=== PATIENT | male | born 1945 | race Caucasian/White ===

== ENCOUNTER → 2020-03-15 09:11 | Outpatient (BNVA) | payer MEDICARE, SELFPAY | PROVIDERS: PCP Student in an Organized Health Care Education/Training Program; Visit Provider Specialist | DX: G25.0 Essential tremor (principal); M51.9 Unspecified thoracic, thoracolumbar and lumbosacral intervertebral disc disorder; R25.1 Tremor, unspecified | CPT/HCPCS: 36415; 82607; 82746; 83921; 99204 ==

== ENCOUNTER 2020-03-15 11:04 | Outpatient (CLI) | payer MEDICARE, SELFPAY ==
[2020-03-15 12:42] LABS: Vitamin B12 1488 pg/mL (232-1245)
[2020-03-15 14:19] LABS: Folate Level > 20.0 ng/mL (4.5-32.2)
[2020-03-20 05:05] LABS: Methylmalonic Acid 200 nmol/L (87-318)
== END 2020-03-15 11:05 | disposition home or self-care (01) ==
LOC: LAB 11:09
PROVIDERS: PCP Student in an Organized Health Care Education/Training Program; Visit Provider Specialist
DX: R25.1 Tremor, unspecified (principal)
CPT/HCPCS: 36415; 82607; 82746; 83921

== ENCOUNTER 2020-11-15 08:15 | Outpatient (CLI) | payer MEDICARE, SELFPAY ==
--- NOTE | 2020-11-15 08:00 | USCV_ITS ---
Gabino Piña Age: 75 Gender: M : 1945 Exam Date: 11/15/2020 08:28 Ordering Phys: Nelly Garzon MD ([email or web address]) Technologist: Kristen Webb [place] [facility] [place]: SOB AND NEAR SYNCOPE BP: 151 / 99 HR: 60 Rhythm: Atrial fibrillation Technical Quality: Adequate MEASUREMENTS (Male / Female) Normal Values 2D ECHO LV Diastolic Diameter PLAX 3.6 cm 4.2 - 5.9 / 3.9 - 5.3 cm LV Systolic Diameter PLAX 2.1 cm LV Chamber Size 3.3 cm IVS Diastolic Thickness 1.5 cm 0.6 - 1.0 / 0.6 - 0.9 cm IVS Systolic Thickness 1.4 cm LVPW Diastolic Thickness 1.5 cm 0.6 - 1.0 / 0.6 - 0.9 cm LVPW Systolic Thickness 1.4 cm RV Chamber Size 3.8 cm LVOT Diameter 2.2 cm LV Ejection Fraction 2D Teich 75.2 % LV Ejection Fraction MOD 2C 50.1 % LV Ejection Fraction 2C AL 51.0 % LA Diameter 3.1 cm LA Width 3.6 cm LA Height 5.1 cm RA Width 3.7 cm RA Height 4.6 cm Aorta at Sinotubular Diameter 3.8 cm DOPPLER AV Peak Velocity 140.0 cm/s LVOT Peak Velocity 124.0 cm/s AV Area Cont Eq vti 3.7 cm squared AV Area Cont Eq pk 3.4 cm squared MV Area PHT 3.8 cm squared Mitral E to A Ratio 1.9 MV E' Velocity 87.4 cm/s Mitral E to MV E' Ratio 13.9 Mitral E to LV E' Lateral Ratio 12.9 Mitral E to LV E' Septal Ratio 14.9 TR Peak Velocity 122.4 cm/s TR Peak Gradient 6.0 mmHg TR Mean Velocity 75.3 cm/s TR Mean Gradient 2.5 mmHg TR Velocity Time Integral 26.4 cm TV Peak E Velocity 52.0 cm/s PV Peak Velocity 37.0 cm/s RV Acceleration Time 0.1 s RV Ejection Time 0.3 s RV AcT/ET 0.3 FINDINGS Left Ventricle Normal left ventricular cavity size. Normal left ventricular systolic function. No regional wall motion abnormalities. Grade III/IV diastolic dysfunction (restrictive filling pattern), severely elevated filling pressures. Right Ventricle The right ventricle is normal in size and function. RVSP could not be calculated due to incomplete tricuspid regurgitation velocity profile. Right Atrium The right atrium is normal in size. Left Atrium The left atrium is normal in size. Mitral Valve Moderately thickened mitral valve. No mitral valve stenosis. Moderate mitral valve regurgitation. Aortic Valve Severe aortic valve calcification. Aortic valve not well visualized. Tricuspid Valve Structurally normal tricuspid valve without significant stenosis or regurgitation. Pulmonary artery systolic pressure is normal. Pulmonic Valve Structurally normal pulmonic valve without significant stenosis. There is no pulmonic regurgitation. Pericardium Normal pericardium without effusion. Aorta Normal ascending aorta dimension. CONCLUSIONS 1-Normal left ventricular cavity size. Normal left ventricular systolic function. No regional wall motion abnormalities. Grade III/IV diastolic dysfunction (restrictive filling pattern), severely elevated filling pressures. 2-The right ventricle is normal in size and function. RVSP could not be calculated due to incomplete tricuspid regurgitation velocity profile. 3-Moderately thickened mitral valve. No mitral valve stenosis. Moderate mitral valve regurgitation. 4-Severe aortic valve calcification. Aortic valve not well visualized. 5-There is no pericardial effusion. 6-Right atrial pressure is around 5 mm of mercury. 7-There are no prior echocardiogram studies to compare. eNlly Garzon MD (Electronically Signed) Final Date: 15 November 2020 17:54 S
== END 2020-11-15 08:16 | disposition home or self-care (01) ==
LOC: RAD 08:20
PROVIDERS: PCP Student in an Organized Health Care Education/Training Program; Visit Provider Internal Medicine Cardiovascular Disease
DX: R06.02 Shortness of breath (principal); R55 Syncope and collapse; I08.0 Rheumatic disorders of both mitral and aortic valves
CPT/HCPCS: 93306

== ENCOUNTER 2020-11-23 07:54 | Outpatient (CLI) | payer MEDICARE, SELFPAY ==
[2020-11-23 08:06] VITALS: BMI 37.0
--- NOTE | 2020-11-23 08:21 | ECG_ITS ---
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 The perfusion scan will be documented separately. DATA: Baseline heart rate was 65 beats per minute. Baseline blood pressure was 186/108 millimeters of mercury. Target heart rate was 143. Maximum heart rate achieved was 85. which was 59 % of the predicted target heart rate. Maximum blood pressure was 186/108 millimeters of mercury. The reason for ending the test was completion of the protocol. The patient did not experience any symptoms. ELECTROCARDIOGRAM: BASELINE: Sinus rhythm. Normal axis. Otherwise, no ST-T changes suggestive of ischemia noted. No arrhythmia noted. EXERCISE: After Lexiscan injection, no ST-T changes suggestive of ischemic noted. No arrhythmia noted. CONCLUSION: Please note due to baseline abnormality of the EKG specificity and sensitivity of the EKG portion of LexiScan MIBI stress test will be low 1. EKG not suggestive of ischemia 2. Lexiscan injection unremarkable. 3. Perfusion scan will be documented separately. Electronically Signed On 11-25-2020 21:57:49 PRESIDENT by NELLY GARZON [id number]
--- NOTE | 2020-11-23 08:21 | NMCV_ITS ---
NM larissa perf SPECT r/s* [id number] Gabino Piña Age: 75 Gender: M : 1945 Exam Date: 11/23/2020 09:24 Ordering Phys: Nelly Garzon MD ([email or web address]) Technologist: NEY Slaughter Exam Location: [facility] Indications: CHEST PAIN STRESS TEST Please see separate stress test report in [facility] for full findings IMAGE PROTOCOL Rest/Stress 1 Lexiscan Day Radiopharmaceutical Dose (mCi) Administration Site Administered by Rest: Tc-99m 10.5 IV NEY Slaughter Sestamibi Stress:Tc-99m 32.9 IV NEY Shankar Sestamibi Rest: 23-Nov-2020 60 Discovery 630 Stress: 23-Nov-2020 30 Discovery 630 0.4mg Lexiscan. Images obtained in supine and prone position. SPECT RESULTS Technical Quality: Excellent Raw Data Analysis: Normal Image Corrections: No attenuation or motion correction applied Summed Stress Score: 0 Summed Rest Score: 4 Summed Difference Score: 0 PERFUSION FINDINGS Large area of patchy decreased tracer uptake in basal to distal anterior and basal to distal inferior wall noted on rest images which improved significantly over stress images images suggestive of artifact. FUNCTIONAL RESULTS (calculated via Gated SPECT) Stress Image LV EF (%): 62 Stress EDV (mL):142 TID: 1.21 Stress ESV (mL):54 Rest Image LV EF (%): 62 FUNCTIONAL FINDINGS: There is normal left ventricular systolic function. IMPRESSIONS Nuclear scan is not suggestive of ischemia.TID ratio is moderately elevated which could be secondary to left ventricle hypertrophy/subendocardial ischemia in the absence of other parameters, however cannot rule out multivessel coronary artery disease clinical correlation advised. Nelly Garzon MD (Electronically Signed) Final Date: 23 November 2020 19:09 S
[2020-11-23 10:06] VITALS: BP 146/88; PULSE 60
[2020-11-23] MEDS: regadenoson 0.4 Mg/5 ml Syringe IVP (10:06)
== END 2020-11-23 07:55 | disposition home or self-care (01) ==
PROVIDERS: PCP Student in an Organized Health Care Education/Training Program; Visit Provider Internal Medicine Cardiovascular Disease
DX: R07.9 Chest pain, unspecified (principal)
CPT/HCPCS: 78452; 93017; A9500; J2785

== ENCOUNTER 2020-12-09 05:33 | Day surgery (SDC) | payer MEDICARE, SELFPAY ==
[2020-12-09] VITALS (15 sets, daily range): BP systolic 96–174; BP diastolic 55–108; PULSE 60–65; RESP 10–21; TEMP 36.8; O2SAT 93–100; BMI 39.2
--- NOTE | 2020-12-09 06:16 | XACV_ITS ---
Ht: 175 cm Wt: 121 kg BSA: 2.48 m2 Gender: Male : 1945 Any Known Allergies: Other Exam Priority: Routine Procedure(s): Procedure Description: Diagnostic procedure Procedure Description: Left Heart Catheterization Procedure Description: Left ventriculography Procedure Description: Coronary Angiography Diagnostic Cath Status: Elective Diagnostic Findings * No significant disease noted in the Left Main, LAD, Circumflex, or RCA coronary arteries. * Coronary angiography shows left dominance. Conclusions 1. Indication for left heart cath: Worsening of angina despite of optimization of medicine in a patient with prior multiple stents1-Short left main which is normal2-LAD is moderate size and caliber vessel with patent prior mid to distal stents3-Diagonal 1 and 2 are small caliber vessels with no significant stenosis4-LCx is aneurysmal in its proximal course without significant stenosis in mid to distal segment, obtuse marginal 1 and 2 has luminal irregularity without significant stenosis. It is a dominant vessel5-RCA is nondominant small caliber vessel without significant stenosis.LV gram: Normal left ventricle ejection fraction 65%. No wall motion abnormality. 2. No significant disease noted in the Left Main, LAD, Circumflex, or RCA coronary arteries. 3. Hyperdynamic left ventricular systolic function. Ejection fraction of 70%. Recommendations * 1-Return to inpatient for close monitoring and routine cath care2-Risk factor modification for secondary prevention3-Statin and aspirin 81 mg life--long, if tolerated4-Continue optimal medical management5-Follow up with Dr. Garzon in four weeks and your primary care in 10 days. Diagnostic RX Recommendation: medical therapy and/or counseling Ventriculography Ejection Fraction: 70.0 % Pressures Phase:Rest AO : 151 / 105 ( 127 ) @ 1:46:00 AM 128 / 82 ( 104 ) @ 1:49:00 AM 122 / 69 ( 94 ) @ 2:02:00 AM 124 / 71 ( 95 ) @ 2:02:00 AM LV : 127 / 8 / @ 2:00:00 AM 132 / 5 / @ 2:01:00 AM 130 / 3 / @ 2:02:00 AM 129 / 6 / @ 2:02:00 AM Valves Phase:DefaultPhase AV : 6.0 @ 8:14:39 AM AV Mean Gradient: 8.0 @ 8:14:39 AM Clinical Evaluation EBL: 5mL-10mL Procedural Details Procedure Consent Obtained. Pre-Procedure Time Out. Identified patient by full name and date of as verbalized by the patient/guarantor. Does the consent match the physician's order: Yes. Accurate & Complete Informed Consent: Yes. Inpatient/Outpatient History & Physical on Chart: Yes. If H&P is completed, is and addenduem needed: No; If yes, is the addendum complete: N/A. Visualize and Verify Site with Patient/Guarantor: N/A. Relevant Radiology Images available: N/A. Pre-op teaching completed and patient verbalized understanding. The risks, benefits, and alternatives of sedation and/or procedure were discussed by physician. The patient agrees to continue. Procedure started. [facility] Clinical Fraility Score: 4: Vulnerable. 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 Chest Pain Symptom Assessment: Typical Angina Symptoms. Cardiovascular Instability: No. Correct patient, site and procedure confirmed by cath team. PERRLA. 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 Lungs clear x 5 lobes. IV Site on Arrival: 20 gauge in the left wrist. IV Fluids: 0.9% NaCl at KVO. 0 mL infused prior to photo lab specialist. Pre Procedural Pulses: bilateral radial was 3+. Pre Procedural Pulses: bilateral posterior tibial was Doppled. Pre Procedural Pulses: bilateral dorsalis pedis was 3+. Oxygen started at 2liters/min via nasal canula. Baseline sample Acquired. HR: 63 BPM. bilateral groins was prepped with chloroprep then draped in the usual sterile fashion. right radial was prepped with chloroprep then draped in the usual sterile fashion. Equipment: 6F - Radial. Cardiac Cath Pack. ACIST Manifold Kit Model BT 2000. Heparinized Saline (2 units/mL), 1000 mL bag. Physician notified. Physician arrived. Physician scrubbed in. Immediate Pre-Procedure Time Out. Correct Patient: Yes; Correct Procedure: Yes; Correct Site: Yes; Correct Patient Position: Yes; Correct Supplies: Yes; Dried Flammable Prep: Yes; Blood Products Available: N/A;. Lidocaine 1% infiltrated to the right radial. Arterial access obtained. A 5 ugandan TIG catheter in over wire. Catheter redirected to the RCA. Multiple views taken of left coronary artery. Multiple views taken of right coronary artery. Catheter removed over the exchange wire. A 5 ugandan Angled Pig catheter in over wire. EDP Sample taken: LV 127/8,16; HR: 92 BPM; SpO2: 95%. LV gram performed in [place] @ 10 mL/second for a total of 30 mL. EDP Sample taken: LV 132/5,23; HR: 60 BPM; SpO2: 90%. EDP Sample taken: LV 130/3,24; HR: 60 BPM; SpO2: 96%. Pullback taken: LV 129/6,22; AO 122/69(94); Mean: 8mmHg, Peak to Peak: 6mmHg, SEP: 20sec/min; HR: 60 BPM; SpO2: 97%. Catheter removed over the exchange wire. Physician scrubbed out. A TR Band was successful obtaining hemostatsis at the Right Radial artery insertion site. TR band placed. Hemostasis obtained. Post Procedure: Pulses reassessed and unchanged. PERRLA. 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 No VTE prophylaxis required. Medication's Wasted: Lidocaine 1% = 18 mL. Medication's Wasted: Nitro = 49.8 mg. Medication's Wasted: Heparin = 1000 units. Medication's Wasted: Other = versed 1 mg. Total IV fluids: 61.2 mL. Contrast type used: Omnipaque 300 mg/mL, 150 mL bottle. Complications: none. Estimated blood loss: 5mL-10mL. Post-op diagnosis: patent stents, no significant stenosis, small vessel disease. Procedure completed. Patient transferred by stretcher to CPRU. Vital chart was stopped. Access Site Site: Right Radial artery Sheath Size: 6 Fr Hemostasis Method: TR Band Hemostasis Success: Successful Procedure Medications Start: 7:29 AM Stop: 7:29 AM Medication: Versed Amount: 1 mg Route: I.V. Start: 7:29 AM Stop: 7:29 AM Medication: Fentanyl Amount: 50 mcg Route: I.V. Start: 7:36 AM Stop: 7:36 AM Medication: Versed Amount: 1 mg Route: I.V. Start: 7:36 AM Stop: 7:36 AM Medication: Fentanyl Amount: 50 mcg Route: I.V. Start: 7:42 AM Stop: 7:42 AM Medication: Nitrogylcerin Amount: 200 mcg Route: I.A. Start: 7:44 AM Stop: 7:44 AM Medication: Heparin Amount: 5000 units Route: I.V. Start: 7:53 AM Stop: 7:53 AM Medication: Versed Amount: 1 mg Route: I.V. I, the attending physician, have reviewed and verified all procedure medications. Yes, all medications given per verbal order History/Risk Factors Hypertension: Yes Dyslipidemia: No Peripheral Arterial Disease (PAD): No Myocardial Infarction (VT): No Obesity: Yes Renal Disease: No Prior Interventions PCI: No CABG: No Valve Surgery: No Report Signatures Finalized by Nelly Garzon MD on 12/21/2020 08:25 PM
[2020-12-09] MEDS: diphenhydrAMINE 50 mg Capsule PO (06:46)
--- NOTE | 2020-12-09 07:28 | W.PM.OPSUD ---
Surgery/Procedure H&P Update DATE OF PROCEDURE: December 09, 2020 DATE H&P PERFORMED: 11/30/20 H&P UPDATE INFORMATION: I have reviewed H&P completed within last 30 days, I have examined patient prior to procedure and No changes to prior documentation PREOP DIAGNOSIS: Angina, abnormal stress test in the patient with CABG PLANNED PROCEDURE: Operation Date: 12/09/20 07:00 Proposed Procedures p left Cardiac Catheterization 22763 R94.39(Left) - Nelly Garzon MD PATIENT REASSESSED PRIOR TO SEDATION, WITH NO CHANGE NOTED: Yes PHYSICAL EXAM: alert, oriented x 3 and clear to auscultation bilaterally AIRWAY EVAL/ANESTHESIA PLAN: ASA II, Risks, benefits & alternatives of sedation and/or procedure discussed and Patient agrees to continue as planned
--- NOTE | 2020-12-09 08:30 | PC.NURSE ---
recovery note pt received from laboratory phlebotomist post diagnostic [facility] via hospital bed. pt alert and oriented x3. pt complains of no pain. tr band present on right wrist. no bleeding or bruising noted. pt educated on restrictions on right wrist. pt verbalized understanding. pt placed on vitals monitor and will be monitored per protocol. bed low, call light within reach. called dietary for breakfast tray. planned to dc within 3 hrs as long as all goes to plan.
--- NOTE | 2020-12-09 11:26 | PC.NURSE ---
tr band tr band off with little difficulty. slight oozing slowed the removal. tr band off now and bandage lightly wrapped with coban. pt again educatedon restrictions of right arm. verbalized understanding. stated he has done this before and remembers from last time. very pleasant patient.
== END 2020-12-09 12:20 | disposition home or self-care (01) ==
PROVIDERS: Internal Medicine; PCP Student in an Organized Health Care Education/Training Program; Visit Provider Internal Medicine Cardiovascular Disease
DX: I20.0 Unstable angina (principal); R94.39 Abnormal result of other cardiovascular function study; E78.5 Hyperlipidemia, unspecified; Z95.0 Presence of cardiac pacemaker; M19.90 Unspecified osteoarthritis, unspecified site; I48.0 Paroxysmal atrial fibrillation; Z87.891 Personal history of nicotine dependence
CPT/HCPCS: 36415; 93452; C1769; C1887; C1894; J1644; J2250; J3010; J3490; J7030; Q0163; Q9967

== ENCOUNTER → 2020-12-16 10:30 | Outpatient (BNVA) | payer MEDICARE, SELFPAY | PROVIDERS: PCP Student in an Organized Health Care Education/Training Program; Visit Provider Nurse Practitioner Family | DX: I25.10 Atherosclerotic heart disease of native coronary artery without angina pectoris (principal); I10 Essential (primary) hypertension | CPT/HCPCS: 80048 ==

== ENCOUNTER → 2021-01-05 14:19 | Outpatient (BNVA) | payer MEDICARE, SELFPAY | PROVIDERS: PCP Student in an Organized Health Care Education/Training Program; Visit Provider Internal Medicine Cardiovascular Disease | DX: I10 Essential (primary) hypertension (principal); I77.72 Dissection of iliac artery | CPT/HCPCS: 80048 ==

== ENCOUNTER 2021-01-06 09:54 | Outpatient (CLI) | payer MEDICARE, SELFPAY ==
[2021-01-06] MEDS: iohexol 350 mg/mL 100 mL Btl IV (10:50)
--- NOTE | 2021-01-06 11:00 | CT_ITS ---
WS: [id number] CTA ABDOMINAL AORTA WITH RUNOFF TECHNIQUE: Contrast enhanced CTA of the abdominal aorta with bilateral lower extremity runoff. Multip lanar reformatted images were obtained. MIP reformats were also reviewed. 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 DLP: 2266.[address] scans at [facility] use at least one of these dose optimization techniques: automat ed exposure control; mA and/or kV adjustment per patient size (includes targeted exams where dose is matched to clinical indication); or iterative reconstruction. FINDINGS: Normal caliber abdominal aorta. Mild aortic calcification. Celiac and SMA are patent. Proxi mal renal arteries are patent. Normal renal parenchymal enhancement. NAMAN is patent. Lung bases are well aerated. Prior gastric bypass. Prior cholecystectomy. Adrenal glands are normal. No hydronephrosis in either kidney. Normal renal parenchymal enhancement. Small left renal cortical c yst. Slightly enlarged calcified prostate. No evidence of high-grade small or large bowel obstruction. Nor mal appendix. No abdominal lymphadenopathy. No inguinal lymphadenopathy. Moderate spondylitic changes lumbar spine with severe central canal stenosis due to disc osteophyte c omplexes at L2-L5. Prior laminectomies L5-S1. RIGHT: Right common iliac artery is patent with mild calcification. Dissection of the right common il iac artery with dissection flap extending into the external iliac artery. Dissection flap extends to the distal external iliac artery. Normal opacification of both lumens. No significant stenosis. Internal iliac artery is patent. Common femoral artery is patent.. Deep femoral artery is patent. Sup erficial femoral artery is patent to the popliteal hiatus. Normal popliteal artery. Images degraded i n the popliteal fossa due to right TKA. Popliteal artery is patent to the trifurcation with normal th ree-vessel runoff to the ankle. LEFT: Left common iliac artery is patent. Internal iliac artery is patent. Left external iliac artery is patent. Common femoral artery is patent. Deep femoral artery is patent. Superficial femoral arter y is patent to the popliteal hiatus. Normal popliteal artery patent to the trifurcation. Three-vessel runoff to the ankle. CT/CT angio abd aorta runof 07123 IMPRESSION: 1. Normal caliber abdominal aorta. Celiac and SMA are patent. 2. 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 No significant flow-limiting stenosis in the common joby ac or external iliac artery. 3. No flow-limiting stenosis in either lower extremity. 4. Three-vessel runoff to both ankles. 5. Images in the right popliteal fossa are degraded due to right TKA. 6. Nonvascular findings described above
== END 2021-01-06 09:55 | disposition home or self-care (01) ==
LOC: RAD 09:57
PROVIDERS: PCP Student in an Organized Health Care Education/Training Program; Visit Provider Internal Medicine Cardiovascular Disease
DX: I77.72 Dissection of iliac artery (principal)
CPT/HCPCS: 75635

== ENCOUNTER → 2021-06-22 11:55 | Outpatient (BNVA) | payer MEDICARE, SELFPAY | PROVIDERS: PCP Student in an Organized Health Care Education/Training Program; Referring Provider Student in an Organized Health Care Education/Training Program; Visit Provider Specialist | DX: M25.562 Pain in left knee (principal) | CPT/HCPCS: 73502; 73560; 73565 ==

== ENCOUNTER 2021-07-27 13:48 | Outpatient (CLI) | payer MEDICARE, SELFPAY ==
--- NOTE | 2021-07-27 15:00 | USCV_ITS ---
Gabino Piña Age: 76 Gender: M : 1945 Exam Date: 07/27/2021 14:29 Ordering Phys: Amber Reynolds Technologist: Yohana Reyes Exam Location: [facility] Indication: HTN, DIZZINESS Risk Factors: Previous Vascular Surgery: Right Brachial BP: / Left Brachial BP: / Right Left Velocity (cm/s) Spectral Plaque Velocity (cm/s) Spectral Plaque Syst/Diast Broadening Syst/Diast Broadening 50.50/ 10.90 Prox CCA 68.00 / 12.80 54.90/ 13.60 Mid CCA 57.50 / 12.40 48.90/ 14.00 Distal CCA 50.50 / 13.20 36.80/ 11.60 Prox ICA 37.80 / 7.80 28.90/ 8.60 Mid ICA 55.60 / 17.80 41.90/ 19.40 Distal ICA 48.50 / 19.30 69.10 ECA 70.60 0.76 ICA/CCA 0.82 Antegrade Vertebral Antegrade 35.00/ 12.40 cm/s 42.80/ 14.30 cm/s Tri Subclavian Tri 77.70 108.3 0 FINDINGS Comparison: none available. No significant elevation of systolic or diastolic velocities. Waveforms are normal. Minimal bilateral, atherosclerosis with no elevation of velocity. CONCLUSIONS Bilateral ICA stenosis less than 50%. Dr. Sofia Santos DO (Electronically Signed) Final Date: 27 July 2021 15:09 S
== END 2021-07-27 13:49 | disposition home or self-care (01) ==
LOC: RAD 13:51
PROVIDERS: PCP Student in an Organized Health Care Education/Training Program; Visit Provider Nurse Practitioner Family
DX: I10 Essential (primary) hypertension (principal); R42 Dizziness and giddiness; I65.23 Occlusion and stenosis of bilateral carotid arteries
CPT/HCPCS: 93880

== ENCOUNTER 2021-11-07 10:23 | Observation (INO) | payer MEDICARE, SELFPAY ==
--- NOTE | 2021-11-01 10:06 | ECG_ITS ---
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 Measurements Intervals [place] Rate: 60 P: 254 DE: 257 QRS: 32 QRSD: 98 T: 38 QT: 407 QTc: 407 Interpretive Statements ELECTRONIC ATRIAL PACEMAKER LOW QRS VOLTAGE IN PRECORDIAL LEADS [QRS DEFLECTION < 1.0 mV IN CHEST LEADS] ANTEROSEPTAL MYOCARDIAL INFARCTION , OF INDETERMINATE AGE [40+ ms Q WAVE IN V1-V4] No previous ECG available for comparison Electronically Signed On 11-02-2021 22:03:14 COUNTER FORMER by Shelley Love M.D. [id number]
[2021-11-01 10:24] VITALS: BMI 34.7
--- NOTE | 2021-11-06 13:30 | PM.MISC ---
Miscellaneous Note Note: Received call from Dr. Tovar that patient was supposed to have pre-op on 11/01, but d/t an emergency physician wasn't available. Subsequently on 11/03 patient received a phone call where a lady asked him if he'd ever gotten his heart monitor. The patient had no idea where the phone call originated from and did not have any fore-knowledge of the possibility or need of a heart monitor, so the phone caller said let me check on it. He hasn't received any other phone calls regarding the issue. on 11/06, He has called Dr. Veronica's office, [facility] (where he sometimes visits the ER, but has never seen a drapery head former), and his primary care doctor and none know of any heart monitor. The patient has had extensive work-up with Dr. Veronica in the recent past and has a pacemaker for paroxysmal a fib. It's possible the phone call was about setting up a follow-up pacemaker interrogation which is schedule for 11/24. Patient gives no account of recent palpitations, syncope, or abnormal chest pains. Patient denies seeing any other drapery head former, primary care doctor, or being admitted to any hospitals since july when he last saw dr. veronica.
[2021-11-07] VITALS (24 sets, daily range): BP systolic 121–186; BP diastolic 54–104; PULSE 58–78; RESP 15–24; TEMP 36.1–37.1; O2SAT 92–98
[2021-11-07 06:25] LABS: Glucose Point of Care 82 mg/dL (70-110)
[2021-11-07 06:29] LABS: Basophils % 0.6 %; Eosinophils # 0.1 10^3/uL (0.0-0.8); Eosinophils % 1.8 %; Hemoglobin 13.9 g/dL (11.7-16.6); Lymphocytes # 1.5 10^3/uL (0.8-4.8); Lymphocytes % 30.1 %; Mean Corpuscular HGB Conc 33.1 g/dL (30.0-36.0); Mean Corpuscular Hemoglobin 31.6 pg (28.0-34.0); Mean Corpuscular Volume 95.5 fl (80-94); Mean Platelet Volume 9.5 fL (7.4-10.4); Monocytes # 0.5 10^3/uL (0.2-0.9); Neutrophils # 2.81 10^3/uL (1.8-7.7); Neutrophils % 57.3 %; Nucleated Red Blood Cells % 0 %; Platelet Count 192 10^3/cmm (130-400); Red Cell Distribution Width 14.2 % (12.1-15.1); White Blood Count 4.9 10^3/uL (4.0-10.0)
[2021-11-07] MEDS: sodium chloride 0.9% 1,000 ML 30 ML IV (06:33)
[2021-11-07] MEDS: acetaminophen 1,000 MG/100 ML PIGGYBACK 400 MG IV ×3 (06:34→17:15)
[2021-11-07] MEDS: vancomycin 1,000 MG in sodium chloride 0.9% 250 ML 167 MG IV (06:50)
[2021-11-07 06:53] LABS: Alanine Aminotransferase 16 U/L (0-41); Albumin Level 4.2 g/dL (3.5-5.2); Alkaline Phosphatase 59 IU/L (40-130); Anion Gap 16.1 (5-19); Aspartate Amino Transferase 18 U/L (0-40); Blood Urea Nitrogen 16 mg/dL (8-23); Calcium 10.1 mg/dL (8.5-10.5); Carbon Dioxide 25 mmol/L (22-29); Chloride 102 mmol/L (98-107); Globulin 2.3 g/dL (1.3-4.6); Glucose 87 mg/dL (65-115); Osmolality Calculated 289 mOsm/kg (285-295); Potassium 4.1 mmol/L (3.5-5.1); Sodium 139 mmol/L (136-145); Total Bilirubin 0.9 mg/dL (0.15-1.2); Total Protein 6.5 g/dL (6.6-8.7)
--- NOTE | 2021-11-07 06:54 | W.PM.OPSUD ---
Surgery/Procedure H&P Update DATE OF PROCEDURE: November 07, 2021 DATE H&P PERFORMED: 11/06/21 H&P UPDATE INFORMATION: I have reviewed H&P completed within last 30 days, I have examined patient prior to procedure, No changes to prior documentation and H&P is in [facility] EMR on date indicated PREOP DIAGNOSIS: Left knee degenerative osteoarthritis PLANNED PROCEDURE: Operation Date: 11/07/21 07:00 Proposed Procedures p Total Knee Arthroplasty 62768 M17.10(Left) - Liliya Tovar MD Related Problem List Diagnoses (1) Primary osteoarthritis of left knee:
--- NOTE | 2021-11-07 06:57 | P.ANESASSM_ITS ---
Pre-Anesthetic Assessment Pre-Anesthetic Assessment: Height/Weight: Height 1.73 m Weight 103.419 kg Temp Pulse Resp BP Pulse Ox 98.1 F 60 18 170/104 95 11/07/21 06:03 11/07/21 06:03 11/07/21 06:03 11/07/21 06:03 11/07/21 06:03 Preop Diagnosis: Left knee degenerative osteoarthritis Proposed Procedure: Operation Date: 11/07/21 07:00 Proposed Procedures p Total Knee Arthroplasty 80465 M17.10(Left) - Liliya Tovar MD Familial anesthetic complications: None Was Beta Teodora taken within 24 hours: Yes Was Clonidine taken within 24 hours: N/A Last intake: Intake Last Liquid Date 11/06/21 Last Liquid Time 18:00 Last Solid Date 11/06/21 Last Solid Time 18:00 Social: Social History: No alcohol and No tobacco Exam: Pre-Anes Outpt Exam: alert, oriented x 3, clear to auscultation bilaterally and regular rate & rhythm Airway: Submandibular: WNL Cervical ROM: WNL MP: 1 Dentition: Full Pulmonary: Pulmonary: Sleep apnea Comments: METS > 4 CV/HEM: CV/HEM: Arrythmia, CAD, HTN, Murmur (MR) and PVD Comments: pAfib Being follow for right common iliac to right external iliac questionable dissection versus double vessel Carotid Doppler 07/18 CONCLUSIONS Bilateral ICA stenosis less than 50%. Fluorescent Lighting Model Maker Report 12/18 Conclusions 1. Indication for left heart cath: Worsening of angina despite of optimization of medicine in a patient with prior multiple stents1-Short left main which is normal2-LAD is moderate size and caliber vessel with patent prior mid to distal stents3-Diagonal 1 and 2 are small caliber vessels with no significant stenosis4-LCx is aneurysmal in its proximal course without significant stenosis in mid to distal segment, obtuse marginal 1 and 2 has luminal irregularity without significant stenosis. It is a dominant vessel5-RCA is nondominant small caliber vessel without significant stenosis.LV gram: Normal left ventricle ejection fraction 65%. No wall motion abnormality. 2. No significant disease noted in the Left Main, LAD, Circumflex, or RCA coronary arteries. 3. Hyperdynamic left ventricular systolic function. Ejection fraction of 70%. EKG Interpretive Statements ELECTRONIC ATRIAL PACEMAKER LOW QRS VOLTAGE IN PRECORDIAL LEADS [QRS DEFLECTION < 1.0 mV IN CHEST LEADS] ANTEROSEPTAL MYOCARDIAL INFARCTION , OF INDETERMINATE AGE [40+ ms Q WAVE IN V1-V4] No previous ECG available for comparison Electronically Signed On 11-02-2021 22:03:14 MOLDING PRESS OPERATOR by Shelley Love M.D. TTE Date of Service: 11/15/20 Procedure(s): CV echo complete* [id number] CONCLUSIONS 1-Normal left ventricular cavity size. Normal left ventricular systolic function. No regional wall motion abnormalities. Grade III/IV diastolic dysfunction (restrictive filling pattern), severely elevated filling pressures. 2-The right ventricle is normal in size and function. RVSP could not be calculated due to incomplete tricuspid regurgitation velocity profile. 3-Moderately thickened mitral valve. No mitral valve stenosis. Moderate mitral valve regurgitation. 4-Severe aortic valve calcification. Aortic valve not well visualized. 5-There is no pericardial effusion. 6-Right atrial pressure is around 5 mm of mercury. 7-There are no prior echocardiogram studies to compare. Nelly Garzon MD (Electronically Signed) : : None reported Hepatic: Hepatic: None reported GI: GI: GERD Metabolic: Metabolic: None reported Musc/skel: Musc/skel: None reported Neuropsych: Comments: RLS Tremor Anesthetic Plan: ASA status: 3 Anesthesia: Anesthesia Evaluation, General and Regional (specify below) (Spinal and adductor canal block) Other: Plan spinal with sedation and adductor canal block for PO pain control Risk of > 500 ml blood loss (7ml/kg in children): No Meds/Allergies Current Medications: Current Medications Generic Name Dose Route Start Last Admin Trade Name Freq PRN Reason Stop Dose Admin Sodium Chloride 1,000 mls @ 30 ml s/hr 11/07/21 05:45 11/07/21 06:33 Sodium Chloride 0.9% IV 11/08/21 05:44 30 mls/hr .Q24H SAMIA Administration PFSH Anesthesia PFSH: Medical History Anemia Coronary arteriosclerosis Dissection of artery of lower extremity Essential hypertension Gastroesophageal reflux Headache History of nonmelanoma skin cancer History of pacemaker Hyperlipidemia Mitral valve regurgitation Obstructive sleep apnea Osteoarthritis Paroxysmal atrial fibrillation Restless leg syndrome Tremor Uncontrolled hypertension Surgical History History of cardiac radiofrequency ablation History of right knee surgery S/P cardiac pacemaker procedure S/P total knee replacement Right knee Family History Other Cancer Chronic kidney disease (CKD) Heart disease Social History History of recent travel: No Data Anesthesia CBC & Chem 7: 11/07/21 06:20 11/07/21 06:20 Other Labs: Laboratory Results - last 48 hr 11/07/21 11/07/21 11/07/21 06:20 06:20 06:22 WBC 4.9 RBC 4.40 Hgb 13.9 Hct 42.0 MCV 95.5 H MCH 31.6 MCHC 33.1 RDW 14.2 Plt Count 192 MPV 9.5 Neut % (Auto) 57.3 Lymph % (Auto) 30.1 [place] % (Auto) 10.0 Eos % (Auto) 1.8 Baso % (Auto) 0.6 Neut # (Auto) 2.81 Lymph # (Auto) 1.5 [place] # (Auto) 0.5 Eos # (Auto) 0.1 Baso # (Auto) 0.0 Nucleated RBC % (auto) 0 Nucleated RBCs # 0.0 Sodium 139 Potassium 4.1 Chloride 102 Carbon Dioxide 25 Anion Gap 16.1 BUN 16 Creatinine 0.8 GFR Calculation Not Reportable Glucose 87 POC Glucose 82 Calculated Osmolality 289 Calcium 10.1 Total Bilirubin 0.9 AST 18 ALT 16 Alkaline Phosphatase 59 Total Protein 6.5 L Albumin 4.2 Globulin 2.3 Cardiac Studies: Echocardiogram Ultrasound 11/15/20 Sestamibi Stress Test (Cardiology) 11/23/20
[2021-11-07 07:45] LABS: Add Urine Microscopic? NO; Charge for UA Resulting for Rev
[2021-11-07 07:53] LABS: Bilirubin Urine Neg (Negative); Blood Urine Neg (Negative); Glucose Urine UA Norm (Normal); Ketones Urine Negative (Negative); Leukocyte Esterase Urine Negative (Negative); Nitrate Urine Negative (Negative); Protein Urine Neg (Negative); Urine Appearance Clear (CLEAR); Urine Color Yellow (Yellow); Urobilinogen Urine Norm (Negative); pH Urine 6.5 (5-7)
[2021-11-07] MEDS: vancomycin 1,000 MG SDV 1000 MG XX (08:00)
[2021-11-07] MEDS: ceFAZolin 1,000 mg SDV 2000 MG IRRIGATION (08:01)
--- NOTE | 2021-11-07 09:40 | P.OP_ITS ---
Operative Report Date of procedure: November 07, 2021 Pre-op Diagnosis: Left knee degenerative osteoarthritis Post-op diagnosis: same Post-op Findings: Large osteophytes, varus deformity, significant degenerative osteoarthritic change Procedure Done: Left total knee arthroplasty Implants: The [place] total knee system with a size 5 triathlon beaded posterior stabilized femur left, a triathlon titanium tibial component size 5 beaded, a triathlon X3 posterior stabilized tibial bearing insert size 5 X 11 mm and a beaded triathlon titanium asymmetric patella size 32 x 10 mm Specimens removed/disposition: Bone, disposed of Pathology: none sent Surgeon: Liliya Tovar Hemstitcher: [facility] operating [facility] technicians Estimated blood loss (mL): 25 Tourniquet time (min): 105 Tourniquet time: At 300 mmHg IV fluids (mL): 1,000 Urine output (mL): 250 Complications: None Findings: Significant degenerative osteoarthritic changes with varus deformity and medial tightness Condition: stable Disposition: PACU (Then to floor for postoperative rehabilitation, medical management, and pain management) Brief History: This 76-year-old gentleman presented to my office with complaints of severe left knee pain causing him significant limitations in activities of daily living. The patient was unresponsive to conservative measures. After extended discussion regarding his cardiac issues as well as the severity of his symptoms, the decision was made to proceed with left total knee arthroplasty. Patient has previously successfully undergone right total knee arthroplasty and has done well following this. It was approximately 3 years ago and was done in [facility]. He is having enough issues with his function and pain level, he wishes to proceed with total knee arthroplasty. Preoperatively, questions were answered and consents were signed. The patient will be admitted to the hospital postoperatively under observation status for postoperative rehabilitation. Medical consultation will be obtained. Procedure: The patient was brought to the operating theater, and after undergoing adequate spinal anesthesia with MAC, and with supplemental regional block placed while in the recovery room, ASA 3, the left lower extremity was prepped with Dura-Prep and draped in usual fashion following placement of a tourniquet high on the leg. The leg was then draped free. Following prepping and draping, the leg was exsanguinated, and the tourniquet was elevated to 300 mm Hg for a total tourniquet time of 105 minutes. Prior to elevation of the tourniquet, but following exposure of the site of surgery, a surgical pause was performed. At the time of the surgical pause, we confirmed the site and side of surgery. Additionally, we confirmed the appropriate and timely administration of preoperative antibiotics, vancomycin 1 g and Transexemic acid 1 g. The availability of equipment was confirmed, and the patient's identity was verbalized as well. Following the surgical pause, an incision was made centering over the patella continuing proximally and distally as necessary to allow access to the knee joint. Dissection continued through skin and soft tissues using a scalpel. Hemostasis was obtained using electrocautery. The skin incision was followed by a median parapatellar arthrotomy. The leg was extended and the patella was everted. Following this, the leg was returned to flexed position. The distal femur was exposed and a drill hole was made in this for placement of the distal femoral jig. The distal femoral jig was set at 5? of valgus. The distal femoral cutting block was then placed in appropriate position, and an willi wing was used to confirm an appropriate amount of distal femur would be resected. The distal femoral resection was accomplished with 8 mm of bone being resected distally. After the distal femoral resection had been accomplished, the femur was measured and it measured a size 5 in an anterior posterior direction is in a medial lateral direction. A size 5 femoral cutting block was placed in position, and we were then able to accomplish the anterior, posterior and chamfer cuts. This jig was then removed, and the notch guide was placed in position. With the notch guide in appropriate position, the notch was excised including resection of the anterior and posterior cruciate ligaments. This notch was to allow for the posterior stabilized femoral component. At this point, the femur was prepared and attention was directed to the proximal tibia. The posterior knee retractor was placed along with medial and lateral retractors. Further resection of the menisci was accomplished as we had better visualization. A complete meniscectomy was performed both medially and laterally with care being taken to protect the popliteus. Retractors were then placed so that the proximal tibia was well visualized. A drill hole was then made in the tibia for placement of the intramedullary guide. This guide was placed so that approximately 2 mm of bone would be resected from the medial tibial plateau, and this resulted in 4+ mm resected from the lateral tibial plateau. The intramedullary guide was utilized supplemented with an extramedullary guide to assure appropriate alignment for the proximal tibial resection. The proximal tibial jig was then evaluated, pinned in position, and the proximal tibial resection was accomplished without difficulty. The jig was removed, and the proximal tibia was measured. It measured a size 5. We then attempted a trial reduction with a size 5 by 9 mm insert. To better balance the knee, a slight medial release was accomplished, and trial reduction was accomplished with an 11 mm insert. With this, the femoral component was placed in position for the trial reduction, and the knee was placed through range of motion. There was excellent stability with excellent varus-valgus alignment with appropriate patellar tracking. Extension was noted to be full as well. This was felt to be the appropriate size insert. There was full extension and flexion without lift off and the rotation of the tibia was marked. Alignment was checked from the hip to the ankle, and this was noted to be appropriate as well. Attention was then directed to the patella. The patella was measured with a caliper. We resected sufficient patella to leave approximately 15 mm of patella remaining. Measurements of the patella then indicated that a size asymmetric 32 mm x 10 mm was the appropriate patellar size. We then placed the jig to drill for the 3 pegs of the press-fit patella, and these drill holes were made without incident. A trial patella was then placed, and the knee was placed through range of motion. The patella was noted to track nicely without evidence of subluxation. The femur was prepared for a press-fit femur by drilling 2 holes for the femoral pegs. All trial components were subsequently removed. The tibial tray was then pinned into position, and we broached the tibia for the stem of the tibial component. Subsequently, 4 drill holes were made for placement of the press-fit tibia. This was accomplished without difficulty. Care was taken to assure appropriate rotation of the tibia as well as appropriate position on the proximal tibia. The tibial tray was completely seated on the proximal tibia. Following broaching, the tibial guide was removed, and all surfaces were copiously irrigated. The surfaces were then dried and a bone plug was placed into the distal femur. Exparel was also injected at this point. The Tritanium tibia was impacted into position. The beaded femur was then impacted into position in a cementless fashion. The tibial insert was placed. The patella was pressed into position with a patellar clamp. The knee was irrigated with 20 mL of Betadine and 500 mL of normal saline, and this was allowed to remain in the knee for 3-4 minutes. The knee was then copiously irrigated and suctioned dry. The knee was placed through aggressive range of motion, and with flexion beyond approximately 110 degrees, there was a click with return to full extension. This was addressed with a partial bony resection along the lateral femoral condyle. Following this resection, there was no more clicking with aggressive range of motion. At that time attention was then directed to closure. Closure was accomplished with 0 Vicryl in the fascial tissues. Following this, a 2-0 Monocryl was used in the subcutaneous tissues, and the skin was closed with skin kirk. A sterile dressing was then placed consisting of dermabond Prineo, OpSite, ABD, sterile soft roll, and an Yonny wrap. The patient was returned the Recovery Room in a satisfactory condition. The supplemental regional block was placed while in the recovery room. X-rays were obtained there. The patient will be discharged to the floor for postoperative rehabilitation and pain management as medical consultation. Associated Problem List Diagnoses (1) Primary osteoarthritis of left knee: (2) Obesity, Class I, BMI 30-34.9:
--- NOTE | 2021-11-07 09:51 | P.CONIM_ITS ---
Providers/Reason For Consult Consulting Physician/Specialty*: Erik Clemente, hospitalist Reason for Consult*: Medical management Attending Physician: Liliya Tovar MD Primary Care Provider: Ari Piña History of Present Illness History of Present Illness Gabino Piña is a 76 year old male who underwent a left total knee arthroplasty today. I have been asked to manage him from a medical standpoint secondary to his complicated medical issues, and heart issues. Currently he reports he is doing okay. He states he had a spinal block so really cannot feel much below his waist. No difficulty breathing. States he occasionally has chest discomfort, and this has been a chronic problem. He states an angiogram was done forward in November 2020 demonstrating no flow-limiting lesions. He has a known history of cardiomyopathy with preserved EF, 3/4 diastolic dysfunction, an d moderate mitral regurgitation demonstrated by echo in October 2020. 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 Review of Systems General: Reports: 10 or more systems reviewed and unremarkable except in HPI and below Const: Denies: fever(s) or chills Eyes: Denies: change in vision ENMT: Denies: throat pain Card: Reports: chest pain Resp: Denies: dyspnea GI: Denies: abdominal pain : Denies: flank pain Musc: Reports: extremity pain; Denies: neck pain Skin/Breast: Denies: rash Neuro: Denies: headache(s) Psych: Denies: anxiety Endo: Denies: polyuria Paul/Lymph: Denies: easy bruising All/Imm: Denies: urticaria Meds/Allergies Home Medications and Allergies Home Medications Medication Instructions Recorded Confirmed Last Taken Type coenzyme Q10 200 mg/gram oral 300 mg PO DAILY gm 03/15/20 11/06/21 12/08/20 05:00 History powder pramipexole 0.25 mg tablet 0.25 mg PO TID 03/15/20 11/07/21 11/07/21 History tamsulosin 0.4 mg capsule 0.4 mg PO DAILY 03/15/20 11/07/21 11/05/21 History acetaminophen 325 mg capsule 500 mg PO QID PRN 11/30/20 11/06/21 12/08/20 05:00 History prednisolone acetate 1 % eye 2 drp OPHTHALMIC (EYE) DAILY ml 11/30/20 11/07/21 11/07/21 History drops,suspension metformin 500 mg PO BID 12/08/20 11/07/21 11/06/21 History trazodone 50 mg tablet 100 mg PO Q4-5H tab 05/03/21 11/07/21 11/06/21 History carvedilol 12.5 mg tablet 12.5 mg PO BID #180 tab 11/02/21 11/07/21 11/07/21 03:30 Rx furosemide 20 mg tablet 20 mg PO DAILY PRN #90 tab 11/02/21 11/07/21 Unknown Rx isosorbide mononitrate 20 mg tablet 30 mg PO BID #135 tab 11/02/21 11/07/21 11/06/21 Rx nitroglycerin 0.4 mg sublingual 0.4 mg SUBLINGUAL Q5M PRN #25 tab 11/02/21 11/07/21 Unknown Rx tablet ranolazine 500 mg tablet,extended 1,000 mg PO QAM #180 tab 11/02/21 11/07/21 11/06/21 Rx release,12 hr ranolazine 500 mg tablet,extended 500 mg PO BEDTIME #90 tab 11/02/21 11/07/21 11/06/21 Rx release,12 hr rivaroxaban 20 mg tablet 20 mg PO DAILY #90 tab 11/02/21 11/07/21 11/01/21 Rx rosuvastatin 40 mg sprinkle capsule 40 mg PO DAILY #90 cap 11/02/21 11/07/21 11/06/21 Rx valsartan 160 mg tablet 240 mg PO DIRECTED #135 tab 11/02/21 11/07/21 11/07/21 Rx Walker #1 ea NS 11/03/21 11/06/21 Unknown Rx amlodipine 5 mg PO DAILY 11/07/21 11/07/21 11/07/21 History tramadol 50 mg PO DAILY 11/07/21 11/07/21 11/06/21 History Allergies Allergy/AdvReac Type Severity Reaction Status Date / Time aspirin Allergy bleeding Verified 11/01/21 10:08 NSAIDS (Non-Steroidal Allergy bleeding Verified 11/01/21 10:08 Anti-Inflamma Current Medications Current Medications Generic Name Dose Route Start Last Admin Trade Name Freq PRN Reason Stop Dose Admin Sodium Chloride 1,000 mls @ 30 mls/hr 11/07/21 05:45 11/07/21 06:33 Sodium Chloride 0.9% IV 11/08/21 05:44 30 mls/hr .Q24H SAMIA Administration PFSH Acute PFSH: Medical History Anemia Coronary arteriosclerosis Dissection of artery of lower extremity Essential hypertension Gastroesophageal reflux Headache History of nonmelanoma skin cancer History of pacemaker Hyperlipidemia Mitral valve regurgitation Obstructive sleep apnea Osteoarthritis Paroxysmal atrial fibrillation Restless leg syndrome Tremor Uncontrolled hypertension Surgical History History of cardiac radiofrequency ablation History of right knee surgery S/P cardiac pacemaker procedure S/P total knee replacement Right knee Family History Other Cancer Chronic kidney disease (CKD) Heart disease Social History History of recent travel: No Vitals/I&O/Wt Last Vital Signs Temp 98.1 F 11/07/21 06:03 Pulse 60 11/07/21 06:03 Resp 18 11/07/21 06:03 BP 170/104 11/07/21 06:03 Pulse Ox 95 11/07/21 06:03 11/06/21 11/07/21 11/07/21 22:59 06:59 14:59 Intake Total 100 / 100 360 / 360 Balance 100 / 100 360 / 360 Physical Exam Narrative: EXAM NARRATIVE: General exam is a white male, currently in no dist ress HEENT: Atraumatic normocephalic. Oropharynx clear. Neck is supple no lymphadenopathy or thyromegaly Cardiovascular regular rate and rhythm, 2/6 systolic murmur Lungs clear Abdomen is soft, positive bowel sounds Extremities no cyanosis clubbing or edema, cap refill brisk Skin no rash Neurologic: Currently cannot move lower extremities secondary to spinal Urinary Catheter Management^: Coffman: Cath Placed During This Visit: yes Urinary Catheter Date of Insertion: 11/07/21 Urinary Catheter Time of Insertion: 07:25 Data Other Data: Other data: COVID PCR - November 01 A&P Assessment and plan (1) Primary osteoarthritis of left knee: Directly postoperative left total knee arthroplasty. Currently doing well. Status: Acute (2) Coronary arteriosclerosis: History of stenting in the past. Reports he has some chest discomfort on a chronic basis, for which he is on medication for. At this point no change in medications Note that his last angiogram 1 year ago demonstrated no flow-limiting lesions Status: Acute (3) Paroxysmal atrial fibrillation: Patient reports he has had no recurrence of his atrial fibrillation, since ablation and pacemaker placement He continues to take Xarelto, which will be continued postoperatively Status: Acute (4) Uncontrolled hypertension: Continue home medications Status: Acute Additional A&P Information Presumed hyperglycemia. He is on metformin. Sugar is normal here. We will put on consistent carb diet, and hold metformin in case any studies with radiological dye are needed while inpatient. Thank you for this consultation Consult Attestations Medical Necessity Statement: As per primary Time Spent in Patient Care: Greater than 35 minutes Coding Level of Care Code Acute Continuous Improvement Analyst for Regla Jaquez Diagnoses Primary osteoarthritis of left knee M17.12 Coronary arteriosclerosis I25.10 Paroxysmal atrial fibrillation I48.0 Uncontrolled hypertension I10
--- NOTE | 2021-11-07 09:54 | XR_ITS ---
NOTE: Report was unsigned for reason: Order was edited. Original Signature date and time was: 11/07/21 @ 1024 WS: [id number] XR knee LT REASON FOR EXAM: Status post total knee arthroplasty FINDINGS: Total left knee arthroplasty. The prosthetic complements are in proper position and alignment. There is mild nonweightbearing hyperextension at the left knee joint. Old healed fracture with bowing deformity of the proximal left fibula. [facility] XR/XR knee LT 1-2V [id number] IMPRESSION: Total left knee arthroplasty without abnormality.
--- NOTE | 2021-11-07 10:25 | PC.NURSE ---
First ice placed on patients left knee for post op care.
--- NOTE | 2021-11-07 11:37 | ANES.PROC ---
Anesthesia Procedures Procedure/Date: 11/07/21 Nerve Block ^: Nerve Block 1: Main Anesthesia: spinal anesthesia block Time Out Performed: Yes (1010) Consent: requested by attending/covering physician and from patient Nerve block location: adductor canal Anesthesia monitors applied: pulse oximetry, EKG, BP cuff and oxygen Nerve block position: supine Anesthetic Used: bupivacaine 0.5% Amount of anesthesia used (mL): 20 Ultrasound used to: recognize landmarks and visualize and ID femerol nerve Nerve Stimulator Used?: No Interscalene/Femoral BLK: 4 stimuplex 21 g needle used for position and inplane approach, visualize local anesthetic spread and no vascular puncture identified Injection: neg aspiration of heme and paresthesia +/- Patient Tolerated Procedure: well Complications: none
--- NOTE | 2021-11-07 11:38 | ANE.PACU2 ---
Inpatient post-anesthesia follow up: Airway intact: Yes Vital signs: Temperature 97.0 F Pulse Rate 60 Respiratory Rate 20 Blood Pressure 152/86 Pulse Oximetry 96 Oxygen Delivery Me thod Room Air Oxygen Flow Rate Fraction of Inspir ed Oxygen Hydration adequate: Yes Nausea and vomiting: No Pain level: 1 Mental status: Baseline
[2021-11-07] MEDS: pramipexole 0.25 mg Tablet PO ×2 (14:13→20:09)
[2021-11-07] MEDS: oxyCODONE 5 mg IR Tab/Cap PO ×2 (15:48→20:09)
[2021-11-07] MEDS: LORazepam 2 mg/mL INJ 1 mL 0.5 MG IVP (15:48)
[2021-11-07] MEDS: chlorhexidine gluconate 0.12% Btl 473 mL 30 ML MUCOUS MEM ×2 (17:14→20:08)
[2021-11-07] MEDS: calcium carbonate 500 mg Chew Tablet 1000 MG PO (17:15)
[2021-11-07] MEDS: isosorbide mononitrate 20 mg Tablet 30 MG PO (17:15)
[2021-11-07] MEDS: sennosides-docusate Tablet 2 TAB PO (17:15)
[2021-11-07] MEDS: iron polysaccharide complex 150 mg Capsule PO (17:15)
[2021-11-07] MEDS: losartan 50 mg Tablet 25 MG PO (17:16)
[2021-11-07] MEDS: carvedilol 12.5 mg Tablet PO (17:16)
[2021-11-07] MEDS: ranolazine (12HR) 500 mg Tablet PO (20:08)
[2021-11-08] VITALS (7 sets, daily range): BP systolic 124–154; BP diastolic 69–85; PULSE 60–86; RESP 17–18; TEMP 36.4–36.9; O2SAT 92–97
[2021-11-08] MEDS: acetaminophen 1,000 MG/100 ML PIGGYBACK 400 MG IV (02:26)
[2021-11-08] MEDS: ranolazine (12HR) 500 mg Tablet 1000 MG PO (05:28)
[2021-11-08] MEDS: oxyCODONE 5 mg IR Tab/Cap PO (06:29)
--- NOTE | 2021-11-08 07:22 | PM.PN ---
Documented by User: GIORGI Barragan STDMANDY 11/08/21 07:26 Subjective Subjective: Interval history: Gabino has no specific complaints today. Denies SOB or chest pain. Vitals/I&O/Wt Last Vital Signs Temp 97.5 F L 11/08/21 04:00 Pulse 86 11/08/21 04:00 Resp 18 11/08/21 06:29 BP 149/83 11/08/21 04:00 Pulse Ox 97 11/08/21 04:00 11/07/21 11/08/21 11/08/21 22:59 06:59 14:59 Intake Total 580 / 1040 100 / 1140 Output Total 1300 / 3625 450 / 4075 Balance -720 / -2585 -350 / -2935 Physical Exam Narrative: EXAM NARRATIVE: General: in no acute distress, breathing comfortably on room air HEENT: atraumatic, normocephalic, oropharynx clear Neck: supple, no lympadenopathy or thyromegaly Cardiovascular: RRR w/o murmur Lungs: clear to auscultation bilaterally, no wheezes Abdomen: soft, nontender Extremities: left knee wrapped in clean and dry dressing Skin: no rash Neuro: no focal deficits Urinary Catheter Management^: Coffman: Cath Placed During This Visit: yes, but has since been removed by the nurse Reason for Continuing Indwelling Catheter: Required Immobilization for Trauma or Surgery or Anesthesia Urinary Catheter Date of Insertion: 11/07/21 Urinary Catheter Time of Insertion: 07:25 Date Urinary Catheter Removed: 11/08/21 Time Urinary Catheter Discontinued: 05:45 Data : 11/07/21 06:20 11/07/21 06:20 Coding Level of Care Code Acute 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 I interviewed patient as well. He is hoping he can go home today. Medications: Reviewed: Yes Physical Exam Narrative: EXAM NARRATIVE: No changes to the above. I examined the patient as well. Urinary Catheter Management^: Coffman: Cath Placed During This Visit: no Data : 11/07/21 06:20 11/07/21 06:20 A&P Assessment and plan (1) Primary osteoarthritis of left knee: Postoperative day #1, doing well Status: Acute (2) Coronary arteriosclerosis: Asymptomatic currently. Continue current medications Does have history of some chronic chest pain for which she is on Ranexa. Status: Acute (3) Paroxysmal atrial fibrillation: Currently appears to be in sinus rhythm. No changes are needed. He will continue his Xarelto. Status: Acute (4) Uncontrolled hypertension: Blood pressure slightly high, but acceptable currently. Status: Acute Additional A&P Information Presumed hyperglycemia. He is on metformin. Sugar continues to be normal. We will put on consistent carb diet, and hold metformin in case any studies with radiological dye are needed while inpatient. Medically stable at this time. Attestations Medical Necessity Statement*: As per primary Coding Level of Care Code Acute School Bus Driver/Custodian for Regla Jaquez Diagnoses Primary osteoarthritis of left knee M17.12 Coronary arteriosclerosis I25.10 Paroxysmal atrial fibrillation I48.0 Uncontrolled hypertension I10
[2021-11-08] MEDS: calcium carbonate 500 mg Chew Tablet 1000 MG PO (09:05)
[2021-11-08] MEDS: isosorbide mononitrate 20 mg Tablet 30 MG PO (09:05)
[2021-11-08] MEDS: pramipexole 0.25 mg Tablet PO (09:05)
[2021-11-08] MEDS: cholecalciferol (vitamin D3) 1,000 unit Tablet 1000 UNIT PO (09:05)
[2021-11-08] MEDS: losartan 50 mg Tablet PO (09:05)
[2021-11-08] MEDS: atorvastatin 40 mg Tablet 80 MG PO (09:06)
[2021-11-08] MEDS: carvedilol 12.5 mg Tablet PO (09:06)
[2021-11-08] MEDS: rivaroxaban 10 mg Tablet 20 MG PO (09:06)
[2021-11-08] MEDS: tamsulosin 0.4 mg Capsule PO (09:06)
[2021-11-08] MEDS: multivitamin therapeutic Tablet 1 TAB PO (09:06)
[2021-11-08] MEDS: amlodipine 5 mg Tablet PO (09:06)
[2021-11-08] MEDS: sennosides-docusate Tablet 2 TAB PO (09:06)
[2021-11-08] MEDS: iron polysaccharide complex 150 mg Capsule PO (09:06)
[2021-11-08] MEDS: chlorhexidine gluconate 0.12% Btl 473 mL 30 ML MUCOUS MEM (09:14)
[2021-11-08] MEDS: acetaminophen 500 mg Tablet 1000 MG PO (09:14)
[2021-11-08] MEDS: mupirocin oint 22 gm 1 APPLIC NASAL (09:14)
--- NOTE | 2021-11-08 11:09 | PC.CHAP ---
Pastoral Care Encounter/Spiritual Assessment Type of Contact [] Declined magazine filler visit [] Patient/Family/Request visit [] Outpatient visit [] Follow-up visit [] Physician referral [] Code/Alert [x] Routine visit [] Staff referral [] Actively dying [] Patient sleeping [] Family support [] [] Out of room [] Palliative care [] [] Receiving care in room [] Pre-surgical visit [] Trauma [] Long length of stay [] ICU visit [] Other: Relational/Emotional Strength [x] Patient feels connected with others/family/visitors/staff [] Distress [] Loneliness/isolation [] Abandonment Spirituality of Patient [x] Person of Inna [x] Attends Zoroastrianism of their Inna [x] Believes in Prayer [x] Reads Bible or Voodoo materials [] There are Spiritual issues to be addressed Machine Tool Mechanic Interventions [x] Prayer [x] Active listening [x] Non-anxious presence [x] Spiritual/emotional support [] Crisis/trauma care [] Spiritual counseling [] Bereavement support [] Provided bereavement packet [] Provided Bible/devotional materials [] Provided toy/stuffed animal, coloring book to patient or family member [] Provided Communion [] Anointing/Petros [] Salvation [x] Completed spiritual assessment [] Other: Impact on Illness or Injury [] Angry [] Fearful [] Anxious [] Often cries [] Exhaustion [] Unable to work [] Unable to attend church [] Unable to walk/stand [] Unable to read [] Unable to drive [] Unable to eat/drink [] Unable to sleep [] Unable to be with family [] Patient intubated [] Other: Summary Time spent with patient 15 min
[2021-11-08 11:23] LABS: Basophils % 0.3 %; Eosinophils % 0.5 %; Hematocrit 37.8 % (42.0-52.0); Hemoglobin 12.5 g/dL (11.7-16.6); Lymphocytes # 1.3 10^3/uL (0.8-4.8); Lymphocytes % 16.4 %; Mean Corpuscular HGB Conc 33.1 g/dL (30.0-36.0); Mean Corpuscular Hemoglobin 31.8 pg (28.0-34.0); Mean Corpuscular Volume 96.2 fl (80-94); Mean Platelet Volume 9.3 fL (7.4-10.4); Monocytes # 1.1 10^3/uL (0.2-0.9); Monocytes % 13.8 %; Neutrophils # 5.41 10^3/uL (1.8-7.7); Neutrophils % 68.6 %; Nucleated Red Blood Cells % 0 %; Platelet Count 163 10^3/cmm (130-400); Red Blood Count 3.93 10^6/uL (4.1-5.3); Red Cell Distribution Width 14.5 % (12.1-15.1); White Blood Count 7.9 10^3/uL (4.0-10.0)
[2021-11-08 11:43] LABS: Anion Gap 13.8 (5-19); Blood Urea Nitrogen 19 mg/dL (8-23); Calcium 8.5 mg/dL (8.5-10.5); Carbon Dioxide 24 mmol/L (22-29); Chloride 102 mmol/L (98-107); Glucose 102 mg/dL (65-115); Osmolality Calculated 284 mOsm/kg (285-295); Potassium 3.8 mmol/L (3.5-5.1); Sodium 136 mmol/L (136-145)
[2021-11-08 12:30] LABS: Glucose Point of Care 92 mg/dL (70-110)
--- NOTE | 2021-11-08 13:21 | P.DS_ITS ---
Discharge Providers Date of Admission: 11/07/21 10:23 Date of Discharge: November 08, 2021 Attending Provider at Admission: Liliya Tovar MD Attending Provider at Discharge: Liliya Tovar MD Primary Care Provider: Ari Piña Diagnoses at Discharge Discharge Diagnosis (1) Primary osteoarthritis of left knee: Status: Acute (2) Coronary arteriosclerosis: Status: Acute (3) Paroxysmal atrial fibrillation: Status: Acute (4) Uncontrolled hypertension: Status: Acute (5) Status post total left knee replacement not using cement: Status: Acute Permanent problem details: 11/07/21 Implants: The Spring total knee system with a size 5 triathlon beaded posterior stabilized femur left, a triathlon titanium tibial component size 5 beaded, a triathlon X3 posterior stabilized tibial bearing insert size 5 X 11 mm and a beaded triathlon titanium asymmetric patella size 32 x 10 mm Reason for Visit Reason for Visit: Left knee osteoarthritis Hospital Course Hospital Course This 76-year-old gentleman was admitted for same-day surgery for left total knee arthroplasty. This was accomplished and the patient was admitted to the floor postoperatively for postoperative rehabilitation and pain management. Given the patient's multiple medical comorbidities, upon admission to the floor, the patient was evaluated by the hospitalist team. He did well following his left total knee arthroplasty and his postoperative course was uneventful. He worked with physical therapy and they felt that he was safe for discharge to home. Nursing agreed and he has been independent in transfers. Therefore, he'll be discharged home to follow-up with me as previously scheduled. Physical Exam Const: COMMON NORMALS: no acute distress, average body habitus, patient oriented x3 and alert GENERAL APPEARANCE: cooperative and comfortable ORIENTATION/CONSCIOUSNESS: Yes awake HENMT: COMMON NORMALS: normocephalic and atraumatic HEAD & SCALP: normocephalic and atraumatic Eye: GENERAL EYE: appearance normal, both eyes and all related structures Chest: COMMONS NORMALS: normal inspection of the chest Resp: COMMON NORMALS: normal respiratory effort EFFORT & INSPECTION: Yes able to speak in complete sentences and Yes symmetric chest movement Extremity: LEFT LOWER EXTREMITY: Yes knee joint (Dressing is removed, and wound is benign.) Left knee: Yes inspection (No significant swelling. Minimal ecchymosis.), Yes palpation (Minimal discomfort.), Yes ROM (Not evaluated.) and Yes neurovascular exam (Intact distal to surgical site with no evidence of DVT) Neuro: COMMON NORMALS: patient oriented x3 SENSORIUM/ORIENTATION: Yes alert Psych: COMMON NORMALS: mental status grossly normal APPEARANCE: Yes grossly normal ATTITUDE: Yes calm and Yes engaged ATTENTION/CONCENTRATION: Yes attention grossly intact Skin: COMMON NORMALS: no rashes or lesions noted GENERAL SKIN EXAM: no rashes or lesions noted Urinary Catheter Management^: Coffman: Cath Placed During This Visit: yes, but has since been removed by the nurse Reason for Continuing Indwelling Catheter: Required Immobilization for Trauma or Surgery or Anesthesia Urinary Catheter Date of Insertion: 11/07/21 Urinary Catheter Time of Insertion: 07:25 Date Urinary Catheter Removed: 11/08/21 Time Urinary Catheter Discontinued: 05:45 Discharge Data Data Completed and Pending: Completed Studies During Hospitalization Category Date Time Status XR knee LT 1-2V 7 3560 Urgent Exams 11/07/21 09:54 Completed Labs from last 24 hours 11/08/21 11/08/21 11/07/21 11:09 11:09 15:39 WBC 7.9 RBC 3.93 L Hgb 12.5 Hct 37.8 L MCV 96.2 H MCH 31.8 MCHC 33.1 RDW 14.5 Plt Count 163 MPV 9.3 Neut % (Auto) 68.6 Lymph % (Auto) 16.4 Sullivan % (Auto) 13.8 Eos % (Auto) 0.5 Baso % (Auto) 0.3 Neut # (Auto) 5.41 Lymph # (Auto) 1.3 Sullivan # (Auto) 1.1 H Eos # (Auto) 0.0 Baso # (Auto) 0.0 Nucleated RBC % (a uto) 0 Nucleated RBCs # 0.0 Sodium 136 Potassium 3.8 Chloride 102 Carbon Dioxide 24 Anion Gap 13.8 BUN 19 Creatinine 0.8 GFR Calculation Not Reportable Glucose 102 POC Glucose 92 Calculated Osmolal ity 284 L Calcium 8.5 Vitals: Last Vital Signs Temp 98.5 F 11/08/21 12:00 Pulse 60 11/08/21 12:00 Resp 18 11/08/21 12:00 BP 124/69 11/08/21 12:00 Pulse Ox 94 11/08/21 12:00 Discharge Plan Discharge Patient Disposition: Home Health Service Condition: Stable Prescriptions: New acetaminophen 500 mg Tablet 1,000 mg PO Q8H 15 Days Qty: 90 RF: 0 oxycodone 5 mg Tablet 5 mg PO Q4H PRN (Reason: Moderate Pain) 7 Days Qty: 30 RF: 0 Continued tamsulosin 0.4 mg capsule 0.4 mg PO DAILY RF: 0 pramipexole 0.25 mg tablet 0.25 mg PO TID RF: 0 H2Q CoQ10 200 mg/gram powder 300 mg PO DAILY RF: 0 trazodone 50 mg tablet 100 mg PO Q4-5H RF: 0 (DME) Walker See Rx Instructions .Route .MEDSUPPLY Qty: 1 RF: 0 prednisolone acetate 1 % drops,suspension 2 drp ophthalmic (eye) DAILY RF: 0 carvedilol 12.5 mg tablet 12.5 mg PO BID Qty: 180 RF: 3 furosemide 20 mg tablet 20 mg PO DAILY PRN (Reason: Weight Gain) Qty: 90 RF: 3 isosorbide mononitrate 20 mg tablet 30 mg PO BID Qty: 135 RF: 3 nitroglycerin 0.4 mg tablet, sublingual 0.4 mg sublingual Q5M PRN (Reason: chest pain) Qty: 25 RF: 3 ranolazine 500 mg tablet extended release 12 hr 1,000 mg PO QAM Qty: 180 RF: 3 ranolazine 500 mg tablet extended release 12 hr 500 mg PO BEDTIME Qty: 90 RF: 3 Xarelto 20 mg tablet 20 mg PO DAILY Qty: 90 RF: 3 rosuvastatin 40 mg capsule, sprinkle 40 mg PO DAILY Qty: 90 RF: 4 valsartan 160 mg tablet 240 mg PO DIRECTED Qty: 135 RF: 3 amlodipine 5 mg Tablet 5 mg PO DAILY RF: 0 tramadol 50 mg Tablet 50 mg PO DAILY RF: 0 metformin 500 mg tablet 500 mg PO BID RF: 0 Discontinued acetaminophen 325 mg capsule 500 mg PO QID PRN (Reason: Pain) RF: 0 Discharge Orders: Discharge Order (Routine); Ordered 11/08/21 Ordered By: Liliya Tovar Referrals: Liliya Tovar MD [Physician] - 11/20/21 8:45 am Discharge Diet: Advance as tolerated and Usual diet Discharge Activity: Increase activity as tolerated, Limit activity as instructed, Use walker/crutches as instructed and As per PT/OT instructions Patient Instructions: Acetaminophen (By mouth), Oxycodone, Slow Release (By mouth), Surgical Site Infections (DC), Knee Replacement (DC), Opioid Safety Activity Restrictions/Additional Instructions: Ice and elevation to left lower extremity. Weightbearing as tolerated. Gait training, strengthening, and ambulation per physical therapy instruction. Discharge Attestations Time Spent in Discharge Care*: greater than 30 min Specific Discharge Activities: educating patient, educating and/or supporting family/caregiver, documenting/other paperwork and evaluating patient/reviewing data Status at Discharge: Cognitive status at discharge: mildly impaired cognition (Unchanged from preoperative) , Behavioral status at discharge: cooperative , Functional status at discharge: independent ambulation Overall status at discharge: patient has a new baseline Quality Metrics Clinical Quality Measures During this hospital stay, did patient experience: None Coding Level of Care Code Acute Chg FW DC note Exam Comprehensive Diagnoses Primary osteoarthritis of left knee M17.12 Coronary arteriosclerosis I25.10 Paroxysmal atrial fibrillation I48.0 Uncontrolled hypertension I10 Status post total left knee replacement not using cement Z96.652
--- NOTE | 2021-11-08 15:56 | PC.NURSE ---
patient verbalized understanding of discharge instructions, home medications, and follow up appointments. patient received his ice packs and was wheeled to the main entrance.
== END 2021-11-08 14:55 | disposition home health service (06) ==
LOC: MEDSURG 10:23
PROVIDERS: Admitting Provider Specialist; PCP Student in an Organized Health Care Education/Training Program; Visit Provider Specialist
PROC: (CPT 27447; principal; 2021-11-07 07:00)
DX: M17.12 Unilateral primary osteoarthritis, left knee (principal); I25.10 Atherosclerotic heart disease of native coronary artery without angina pectoris; I48.0 Paroxysmal atrial fibrillation; I10 Essential (primary) hypertension; Z95.0 Presence of cardiac pacemaker; E78.5 Hyperlipidemia, unspecified; G47.33 Obstructive sleep apnea (adult) (pediatric); E66.9 Obesity, unspecified; Z68.34 Body mass index [BMI] 34.0-34.9, adult
CPT/HCPCS: 27447; 12345; 36415; 36416; 51702; 64447; 73560; 73562; 76942; 80048; 80053; 81003; 82962; 85025; 87635; 93005; 96365; 97110; 97116; 97162; C1776; C9290; G0378; J0360; J0690; J2060; J2250; J2704; J3370; J3490; J7030

== ENCOUNTER → 2021-11-20 09:03 | Outpatient (BNVA) | payer MEDICARE, SELFPAY | PROVIDERS: PCP Student in an Organized Health Care Education/Training Program; Visit Provider Specialist | DX: Z96.652 Presence of left artificial knee joint (principal); Z96.651 Presence of right artificial knee joint | CPT/HCPCS: 73560; 73565 ==

== ENCOUNTER → 2021-12-27 08:30 | Outpatient (BNVA) | payer MEDICARE, SELFPAY | PROVIDERS: PCP Student in an Organized Health Care Education/Training Program; Visit Provider Nurse Practitioner Family | DX: I48.0 Paroxysmal atrial fibrillation (principal); Z95.0 Presence of cardiac pacemaker; I25.10 Atherosclerotic heart disease of native coronary artery without angina pectoris; I10 Essential (primary) hypertension | CPT/HCPCS: 99214 ==

== ENCOUNTER → 2022-01-01 10:12 | Outpatient (BNVA) | payer MEDICARE, SELFPAY | PROVIDERS: PCP Student in an Organized Health Care Education/Training Program; Visit Provider Specialist | DX: Z96.652 Presence of left artificial knee joint (principal) | CPT/HCPCS: 73560; 73565 ==

== ENCOUNTER → 2022-02-28 14:17 | Outpatient (BNVA) | payer MEDICARE, SELFPAY | PROVIDERS: PCP Student in an Organized Health Care Education/Training Program; Visit Provider Nurse Practitioner Family | DX: I48.0 Paroxysmal atrial fibrillation (principal); I10 Essential (primary) hypertension; Z87.891 Personal history of nicotine dependence | CPT/HCPCS: 99214 ==

== ENCOUNTER 2022-03-07 11:00 | Outpatient (CLI) | payer MEDICARE, SELFPAY ==
[2022-03-07 12:12] LABS: Blood Urea Nitrogen 25 mg/dL (8-23); Calcium 9.7 mg/dL (8.5-10.5); Carbon Dioxide 32 mmol/L (22-29); Chloride 95 mmol/L (98-107); Glucose 96 mg/dL (65-115); Osmolality Calculated 284 mOsm/kg (285-295); Sodium 135 mmol/L (136-145)
== END 2022-03-07 11:01 | disposition home or self-care (01) ==
LOC: LAB 11:09
PROVIDERS: PCP Student in an Organized Health Care Education/Training Program; Visit Provider Nurse Practitioner Family
DX: I10 Essential (primary) hypertension (principal)
CPT/HCPCS: 80048

== ENCOUNTER 2022-03-11 10:26 | Emergency (ER) | payer MEDICARE, SELFPAY ==
[2022-03-11 10:33] VITALS: BP 144/91; PULSE 60; RESP 20; TEMP 36.4; O2SAT 96
--- NOTE | 2022-03-11 10:38 | CTR_ITS ---
PROCEDURE INFORMATION: Exam: CT Head Without Contrast Exam date and time: 03/11/2022 11:14 AM Age: 76 years old Clinical indication: Pain; Headache; Vascular; Additional info: NAIK TECHNIQUE: Imaging protocol: Computed tomography of the head without contrast. Radiation optimization: All CT scans at this facility use at least one of these dose optimization techniques: automated exposure control; mA and/or kV adjustment per patient size (includes targeted exams where dose is matched to clinical indication); or iterative reconstruction. COMPARISON: [place] [place] [id number] 08/06/2019 12:31 PM RADIATION DOSE METRICS: Total DLP (mGy-cm): 923.94 FINDINGS: Brain: No hemorrhage. Mild diffuse cerebral atrophy and moderate sequela of chronic small vessel ischemic disease. No mass effect. Cerebral ventricles: No ventriculomegaly. Paranasal sinuses: Visualized sinuses are unremarkable. No fluid levels. Mastoid air cells: Visualized mastoid air cells are well aerated. Bones/joints: Unremarkable. No acute fracture. Soft tissues: Unremarkable. CT/CT head wo con* [id number] IMPRESSION: 1. No acute intracranial abnormality. 2. Mild diffuse cerebral atrophy and moderate sequela of chronic small vessel ischemic disease.
--- NOTE | 2022-03-11 10:38 | XRR_ITS ---
PROCEDURE INFORMATION: Exam: XR Chest Exam date and time: 03/11/2022 11:05 AM Age: 76 years old Clinical indication: Pain; Chest pressure; Additional info: Cp TECHNIQUE: Imaging protocol: XR of the chest. Views: 1 view. COMPARISON: CT angio abd aorta runof [id number] 01/06/2021 11:03 AM FINDINGS: Tubes, catheters and devices: 2 lead pacer device noted in the left chest wall. Lungs: Unremarkable. No consolidation. Pleural spaces: Unremarkable. No pleural effusion. No pneumothorax. Heart/Mediastinum: Unremarkable. No cardiomegaly. Bones/joints: Unremarkable. XR/XR chest 1V portable [id number] IMPRESSION: No acute findings.
[2022-03-11 10:39] VITALS: BP 132/93; PULSE 60; RESP 18; TEMP 36.6; O2SAT 99
--- NOTE | 2022-03-11 10:39 | ECG_ITS ---
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 Measurements Intervals [place] Rate: 64 P: 147 NM: 287 QRS: 57 QRSD: 109 T: 45 QT: 406 QTc: 422 Interpretive Statements ELECTRONIC ATRIAL PACEMAKER SEPTAL MYOCARDIAL INFARCTION , PROBABLY OLD [40+ ms Q WAVE IN V1/V2] Compared to ECG 11/01/2021 10:43:19 No significant changes Electronically Signed On 03-11-2022 13:23:46 CDT by Shelley Love M.D. [id number]
--- NOTE | 2022-03-11 10:39 | W.ED.CHESTPA ---
HPI - Chest Pain General: Chief Complaint: Chest Pain Stated Complaint: CHEST PAIN Time Seen by Provider: 03/11/22 10:27 History of Present Illness: 76-year-old with history of CAD and small vessel coronary disease presents with chest pain. States that he has had it for months however over the last day it has gotten more severe. It is pressure-like and achy. Does not radiate. Denies any radiation to the back. States that he is on Xarelto and has been compliant with it. Denies any fevers or chills or nausea or vomiting. Denies lower extremity pain. Does report bilateral lower extremity swelling and he has been on Lasix for this with improvement in lower extremity swelling recently. Also reports mild headache. Denies any head trauma. States it was gradual to maximal intensity. Denies any focal numbness weakness or tingling. Review of Systems Narrative: - CONSTITUTIONAL: Denies weight loss, fever and chills. - HEENT: Denies changes in vision and hearing. - RESPIRATORY: Denies SOB and cough. - CV: As above - GI: Denies abdominal pain, nausea, vomiting and diarrhea. - : Denies dysuria and urinary frequency. - MSK: Denies myalgia and joint pain. - SKIN: Denies rash and pruritus. - NEUROLOGICAL: As above - PSYCHIATRIC: Denies suicidal ideation PFSH ED PFSH: Medical History Anemia Coronary arteriosclerosis Dissection of artery of lower extremity Essential hypertension Gastroesophageal reflux Headache History of nonmelanoma skin cancer History of pacemaker Hyperlipidemia Mitral valve regurgitation Obstructive sleep apnea Osteoarthritis Paroxysmal atrial fibrillation Restless leg syndrome Tremor Uncontrolled hypertension Surgical History History of cardiac radiofrequency ablation History of right knee surgery S/P cardiac pacemaker procedure S/P total knee replacement Right knee Family History Other Cancer Chronic kidney disease (CKD) Heart disease Social History Smoking and tobacco status: former smoker History of recent travel: No Physical Exam Narrative: EXAM NARRATIVE: - GENERAL: Alert and oriented x 3. No acute distress. Well-nourished. - EYES: EOMI. Anicteric. - HENT: Atraumatic, no C-spine tenderness. Moist mucous membranes. No scleral icterus. No cervical lymphadenopathy. - LUNGS: Clear to auscultation bilaterally. No accessory muscle use. Equal lung sounds bilaterally. No respiratory distress. - CARDIOVASCULAR: Regular rate and rhythm. No murmur. No JVD. - ABDOMEN: Soft, non-tender and non-distended. Negative CVA tenderness bilaterally, no rebound or guarding, negative Merida sign. No palpable masses. - EXTREMITIES: +1 lower extremity bilateral edema. Non-tender. - SKIN: No rashes or lesions. Warm. - NEUROLOGIC: No meningismus or focal neurological deficits. CN II-XII grossly intact. - PSYCHIATRIC: Cooperative. Appropriate mood and affect. Course Vital Signs: Vital signs: Vital Signs Temperature 97.8 F 03/11/22 10:39 Pulse Rate 60 03/11/22 10:39 Respiratory Rate 18 03/11/22 10:39 Blood Pressure 132/93 03/11/22 10:39 Pulse Oximetry 99 03/11/22 10:39 MDM - Chest Pain Medical Decision Making 76-year-old presents with chest pain. Also complains of headache. Nonfocal neurologic exam. There is no meningismus. He is hemodynamically stable afebrile and nontoxic-appearing. EKG and troponins do not reveal any sign of acute ischemia or other acute abnormality. D-dimer is negative. X-ray does not reveal pneumothorax or consolidation. CT scan of the head does not reveal any intracranial hemorrhage or other acute abnormality. Remainder of lab work unremarkable. At this time I believe patient would be safe for discharge and outpatient follow-up. Return precautions provided. Plan was reviewed with the patient who expressed understanding. Questions answered. Patient will follow up with PCP. Patient discharged in stable condition. Lab Data : 03/11/22 10:47 03/11/22 10:47 Radiology Impressions Chest X-Ray 03/11/22 10:38 IMPRESSION: No acute findings. Head CT 03/11/22 10:38 IMPRESSION: 1. No acute intracranial abnormality. 2. Mild diffuse cerebral atrophy and moderate sequela of chronic small vessel ischemic disease. Laboratory Results WBC 5.6 10^3/uL (4.0-10.0) 03/11/22 10:47 RBC 3.94 10^6/uL (4.1-5.3) L 03/11/22 10:47 Hgb 12.4 g/dL (11.7-16.6) 03/11/22 10:47 Hct 37.4 % (42.0-52.0) L 03/11/22 10:47 MCV 94.9 fl (80-94) H 03/11/22 10:47 MCH 31.5 pg (28.0-34.0) 03/11/22 10:47 MCHC 33.2 g/dL (30.0-36.0) 03/11/22 10:47 RDW 13.6 % (12.1-15.1) 03/11/22 10:47 Plt Count 181 10^3/cmm (130-400) 03/11/22 10:47 MPV 9.3 fL (7.4-10.4) 03/11/22 10:47 Neut % (Auto) 70.3 % 03/11/22 10:47 Lymph % (Auto) 18.9 % 03/11/22 10:47 [place] % (Auto) 8.5 % 03/11/22 10:47 Eos % (Auto) 1.6 % 03/11/22 10:47 Baso % (Auto) 0.5 % 03/11/22 10:47 Neut # (Auto) 3.90 10^3/uL (1.8-7.7) 03/11/22 10:47 Lymph # (Auto) 1.1 10^3/uL (0.8-4.8) 03/11/22 10:47 [place] # (Auto) 0.5 10^3/uL (0.2-0.9) 03/11/22 10:47 Eos # (Auto) 0.1 10^3/uL (0.0-0.8) 03/11/22 10:47 Baso # (Auto) 0.0 10^3/uL (0.0-0.1) 03/11/22 10:47 Nucleated RBC % (auto) 0 % 03/11/22 10:47 Nucleated RBCs # 0.0 /100WBC 03/11/22 10:47 D-Dimer 0.34 ug/mIFEU (0-0.59) 03/11/22 10:47 Sodium 132 mmol/L (136-145) L 03/11/22 10:47 Potassium 4.0 mmol/L (3.5-5.1) 03/11/22 10:47 Chloride 92 mmol/L (98-107) L 03/11/22 10:47 Carbon Dioxide 31 mmol/L (22-29) H 03/11/22 10:47 Anion Gap 13.0 (5-19) 03/11/22 10:47 BUN 25 mg/dL (8-23) H 03/11/22 10:47 Creatinine 1.1 mg/dL (0.7-1.2) 03/11/22 10:47 GFR Calculation Not Reportable 03/11/22 10:47 Glucose 102 mg/dL (65-115) 03/11/22 10:47 Calculated Osmolality 279 mOsm/kg (285-295) L 03/11/22 10:47 Calcium 9.9 mg/dL (8.5-10.5) 03/11/22 10:47 Total Bilirubin 0.8 mg/dL (0.15-1.2) 03/11/22 10:47 AST 16 U/L (0-40) 03/11/22 10:47 ALT 13 U/L (0-41) 03/11/22 10:47 Alkaline Phosphatase 64 IU/L (40-130) 03/11/22 10:47 Troponin T Baseline 18 ng/L (0-15) H 03/11/22 10:47 Troponin T 120 Minute 16.07 ng/L (0-15) H 03/11/22 12:31 Delta Troponin T -1.93 ABS# (0-10) L 03/11/22 12:31 NT-Pro-B Natriuret Pep 267 pg/mL (0-450) 03/11/22 10:47 Total Protein 6.5 g/dL (6.6-8.7) L 03/11/22 10:47 Albumin 4.2 g/dL (3.5-5.2) 03/11/22 10:47 Globulin 2.3 g/dL (1.3-4.6) 03/11/22 10:47 Lipase 92 U/L (13-60) H 03/11/22 10:47 EKG Data EKG 1: Other EKG comments: Atrial pacemaker, rate of 64, no sign of acute ischemia or other acute abnormality. Discharge Plan Discharge Patient Disposition: Home Clinical Impression: Chest pain, Headache Condition: Stable Prescriptions: No Action tamsulosin 0.4 mg capsule 0.4 mg PO DAILY 0RF pramipexole 0.25 mg tablet 0.25 mg PO TID 0RF H2Q CoQ10 200 mg/gram powder 300 mg PO DAILY 0RF trazodone 50 mg tablet 100 mg PO Q4-5H 0RF (DME) Walker See Rx Instructions .Route .MEDSUPPLY Qty: 1 0RF Rx Instructions: As directed prednisolone acetate 1 % drops,suspension 2 drp ophthalmic (eye) DAILY 0RF furosemide 40 mg tablet 40 mg PO DAILY PRN (Reason: Weight Gain) Qty: 90 3RF chlorthalidone 25 mg tablet 25 mg PO DAILY Qty: 90 3RF carvedilol 12.5 mg tablet 12.5 mg PO BID Qty: 180 3RF isosorbide mononitrate 20 mg tablet 30 mg PO BID Qty: 135 3RF Rx Instructions: give doses 7 hrs apart nitroglycerin 0.4 mg tablet, sublingual 0.4 mg sublingual Q5M PRN (Reason: chest pain) Qty: 25 3RF Rx Instructions: do not exceed 3 doses per episode Xarelto 20 mg tablet 20 mg PO DAILY Qty: 90 3RF Rx Instructions: must administer with evening meal rosuvastatin 40 mg tablet 40 mg PO DAILY Qty: 90 3RF ranolazine 500 mg tablet extended release 12 hr 1,500 mg PO DIRECTED Qty: 270 3RF Rx Instructions: take 2 tabs at 8AM and 1 tab at 3PM irbesartan 150 mg tablet 150 mg PO DAILY Qty: 90 3RF amlodipine 5 mg Tablet 5 mg PO DAILY 0RF tramadol 50 mg Tablet 50 mg PO DAILY 0RF metformin 500 mg tablet 500 mg PO BID 0RF Discharge Orders: Discharge ED (Routine); Ordered 03/11/22 Ordered By: Av Oliva Referrals: your, piece work checker [Other] - 1-3 days Ari Piña [Primary Care Provider] - 1-3 days Patient Instructions: Chest Pain (ED), Acute Headache (ED), Opioid Safety Coding Level of Care Code ED Construction Assistant for Regla Jaquez
[2022-03-11 10:55] LABS: Basophils % 0.5 %; Eosinophils # 0.1 10^3/uL (0.0-0.8); Eosinophils % 1.6 %; Hematocrit 37.4 % (42.0-52.0); Hemoglobin 12.4 g/dL (11.7-16.6); Lymphocytes # 1.1 10^3/uL (0.8-4.8); Lymphocytes % 18.9 %; Mean Corpuscular HGB Conc 33.2 g/dL (30.0-36.0); Mean Corpuscular Hemoglobin 31.5 pg (28.0-34.0); Mean Corpuscular Volume 94.9 fl (80-94); Mean Platelet Volume 9.3 fL (7.4-10.4); Monocytes # 0.5 10^3/uL (0.2-0.9); Monocytes % 8.5 %; Neutrophils % 70.3 %; Nucleated Red Blood Cells % 0 %; Platelet Count 181 10^3/cmm (130-400); Red Blood Count 3.94 10^6/uL (4.1-5.3); Red Cell Distribution Width 13.6 % (12.1-15.1); White Blood Count 5.6 10^3/uL (4.0-10.0)
[2022-03-11 11:09] VITALS: BP 130/91; O2SAT 91
[2022-03-11 11:09] LABS: D Dimer 0.34 ug/mIFEU (0-0.59)
[2022-03-11 11:18] LABS: Troponin(5th) Baseline 18 ng/L (0-15)
[2022-03-11 11:28] LABS: Alanine Aminotransferase 13 U/L (0-41); Albumin Level 4.2 g/dL (3.5-5.2); Alkaline Phosphatase 64 IU/L (40-130); Aspartate Amino Transferase 16 U/L (0-40); Blood Urea Nitrogen 25 mg/dL (8-23); Calcium 9.9 mg/dL (8.5-10.5); Carbon Dioxide 31 mmol/L (22-29); Chloride 92 mmol/L (98-107); Globulin 2.3 g/dL (1.3-4.6); Glucose 102 mg/dL (65-115); Lipase 92 U/L (13-60); NT Pro B Type Natriuretic Pept 267 pg/mL (0-450); Osmolality Calculated 279 mOsm/kg (285-295); Sodium 132 mmol/L (136-145); Total Bilirubin 0.8 mg/dL (0.15-1.2); Total Protein 6.5 g/dL (6.6-8.7)
[2022-03-11] MEDS: aspirin 81 mg Chew Tablet 324 MG PO (12:06)
[2022-03-11] MEDS: nitroglycerin 0.4 mg sublingual Tablet SUBLINGUAL (12:06)
[2022-03-11 12:30] VITALS: BP 123/77; O2SAT 97
--- NOTE | 2022-03-11 12:39 | ECG_ITS ---
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 Measurements Intervals [place] Rate: 68 P: 60 [place]: 292 QRS: 58 QRSD: 102 T: 35 QT: 415 QTc: 441 Interpretive Statements ELECTRONIC ATRIAL PACEMAKER SEPTAL MYOCARDIAL INFARCTION , OF INDETERMINATE AGE [40+ ms Q WAVE IN V1/V2] Compared to ECG 03/11/2022 10:45:27 No significant changes Electronically Signed On 03-11-2022 13:27:25 CDT by Shelley Love M.D. [email or web address]
[2022-03-11 12:57] LABS: Troponin 5 2HR 16.07 ng/L (0-15)
[2022-03-11 13:01] LABS: Troponin 5 2HR Delta -1.93 ABS# (0-10)
[2022-03-11 13:09] VITALS: BP 118/74; O2SAT 94
[2022-03-11] MEDS: acetaminophen 500 mg Tablet PO (13:42)
[2022-03-11 14:13] VITALS: BP 135/79; PULSE 10; O2SAT 96
== END 2022-03-11 13:55 | disposition home or self-care (01) ==
PROVIDERS: Emergency Provider Emergency Medicine; PCP Student in an Organized Health Care Education/Training Program
DX: R07.9 Chest pain, unspecified (principal); I25.10 Atherosclerotic heart disease of native coronary artery without angina pectoris; Z95.0 Presence of cardiac pacemaker; Z87.891 Personal history of nicotine dependence; R51.9 Headache, unspecified; Z79.891 Long term (current) use of opiate analgesic; Z79.01 Long term (current) use of anticoagulants; Z79.84 Long term (current) use of oral hypoglycemic drugs
CPT/HCPCS: 70450; 71045; 80053; 83690; 83880; 84484; 85025; 85378; 93005; 99285

== ENCOUNTER → 2022-03-23 10:09 | Outpatient (BNVA) | payer MEDICARE, SELFPAY | PROVIDERS: PCP Student in an Organized Health Care Education/Training Program; Visit Provider Internal Medicine Cardiovascular Disease | DX: I34.0 Nonrheumatic mitral (valve) insufficiency (principal); I10 Essential (primary) hypertension; I25.110 Atherosclerotic heart disease of native coronary artery with unstable angina pectoris; Z87.891 Personal history of nicotine dependence; Z95.0 Presence of cardiac pacemaker | CPT/HCPCS: 93280; 99214; 99215 ==

== ENCOUNTER 2022-03-23 16:13 | Inpatient (IN) | payer MEDICARE, SELFPAY ==
[2022-03-23] VITALS (18 sets, daily range): BP systolic 106–145; BP diastolic 63–110; PULSE 60–69; RESP 12–24; TEMP 36.3; O2SAT 93–100; BMI 34.9
--- NOTE | 2022-03-23 17:11 | ECG_ITS ---
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 Measurements Intervals [place] Rate: 60 P: 256 RI: 253 QRS: 18 QRSD: 100 T: 29 QT: 421 QTc: 421 Interpretive Statements ELECTRONIC ATRIAL PACEMAKER-100% A- paced, V- sensed rhythm ABNORMAL RHYTHM ECG Compared to ECG 03/11/2022 12:39:52 Myocardial infarct finding no longer present Electronically Signed On 03-23-2022 22:07:26 CDT by Vivienne Camara M.D. [id number]
--- NOTE | 2022-03-23 17:41 | P.HP_ITS ---
Providers/Chief Complaint Admitting Physician: Basim Zeng M.D Primary Care Provider: Ari Piña Chief Complaint: room ICU 7 History of Present Illness Gabino Piña is a 76 year old male with past medical history of coronary artery disease status post LAD stenting in 2010, hypertension, paroxysmal atrial fibrillation who presented to the office today with worsening chest pain symptoms. According to patient over the last few weeks he has been having worsening chest pain. He wakes up from his sleep with chest pain radiating to the jaw. Feels similar to his pain prior to his prior PCI's. He is on Xarelto for anticoagulation however has not taken it yesterday. Patient was admitted to the hospital from the clinic for coronary angiogram given his symptoms worrisome for unstable angina. Review of Systems Const: Reports: fatigue Card: Reports: chest pain, palpitations, edema, swelling of feet/ankles, lightheadedness and dyspnea on exertion; Denies: irregular heart rhythm, syncope, pre-syncope, orthopnea or leg pain with exertion Resp: Reports: dyspnea; Denies: productive cough or wheezing Musc: Reports: neck pain and back pain Neuro: Reports: headache(s) and dizziness Psych: Denies: anxiety, depression, suicidal ideation or homicidal ideation Paul/Lymph: Reports: easy bruising and easy bleeding Medications/Allergies Home Medications Medication Instructions Recorded Confirmed Last Taken Type coenzyme Q10 200 mg/gram oral 300 mg PO DAILY gm 03/15/20 03/23/22 12/08/20 05:00 History powder (H2Q CoQ10) pramipexole 0.25 mg tablet 0.25 mg PO TID 03/15/20 03/23/22 11/07/21 History tamsulosin 0.4 mg capsule 0.4 mg PO DAILY 03/15/20 03/23/22 11/05/21 History prednisolone acetate 1 % eye 2 drp OPHTHALMIC (EYE) DAILY ml 11/30/20 03/23/22 11/07/21 History drops,suspension metformin 500 mg PO BID 12/08/20 03/23/22 11/06/21 History trazodone 50 mg tablet 100 mg PO Q4-5H tab 05/03/21 03/23/22 11/06/21 History carvedilol 12.5 mg tablet 12.5 mg PO BID #180 tab 0103/23/22 11/07/21 03:30 Rx isosorbide mononitrate 20 mg tablet 30 mg PO BID #135 tab 11/02/21 03/23/22 11/06/21 Rx nitroglycerin 0.4 mg sublingual 0.4 mg SUBLINGUAL Q5M PRN #25 tab 11/02/21 03/23/22 Unknown Rx tablet rivaroxaban 20 mg tablet (Xarelto) 20 mg PO DAILY #90 tab 11/02/21 03/23/22 11/01/21 Rx Walker #1 ea NS 11/03/21 03/23/22 Unknown Rx amlodipine 5 mg tablet 5 mg PO DAILY 11/07/21 03/23/22 11/07/21 History tramadol 50 mg tablet 50 mg PO DAILY 11/07/21 03/23/22 11/06/21 History rosuvastatin 40 mg tablet 40 mg PO DAILY #90 tab 12/28/21 03/23/22 Unknown Rx ranolazine 500 mg tablet,extended 1,500 mg PO DIRECTED #270 tab 01/11/22 03/23/22 Unknown Rx release,12 hr irbesartan 150 mg tablet 150 mg PO DAILY #90 tab 02/22/22 03/23/22 Unknown Rx chlorthalidone 25 mg tablet 25 mg PO DAILY #90 tab 02/28/22 03/23/22 Unknown Rx furosemide 40 mg tablet 40 mg PO DAILY PRN #90 tab 02/28/22 03/23/22 Unknown Rx Allergies Allergy/AdvReac Type Severity Reaction Status Date / Time aspirin Allergy bleeding Verified 03/23/22 10:42 NSAIDS (Non-Steroidal Allergy bleeding Verified 03/23/22 10:42 Anti-Inflamma PFSH Acute PFSH: Medical History Anemia Coronary arteriosclerosis Dissection of artery of lower extremity Essential hypertension Gastroesophageal reflux Headache History of nonmelanoma skin cancer History of pacemaker Hyperlipidemia Mitral valve regurgitation Obstructive sleep apnea Osteoarthritis Paroxysmal atrial fibrillation Restless leg syndrome Tremor Uncontrolled hypertension Surgical History History of cardiac radiofrequency ablation History of right knee surgery S/P cardiac pacemaker procedure S/P total knee replacement Right knee Family History Other Cancer Chronic kidney disease (CKD) Heart disease Social History Smoking and tobacco status: former smoker History of recent travel: No Vitals/I&O/Wt Last Vital Signs Pulse 60 03/23/22 17:35 Resp 15 03/23/22 17:35 BP 132/81 03/23/22 17:35 Pulse Ox 98 03/23/22 17:35 Weight last 48 hrs Weight 237 lb Physical Exam Narrative: GENERAL: Patient is alert, awake and oriented x3. [] NECK: No jugular vein distension. [] HEENT: No cyanosis. No icterus. No pallor. [] HEART: Regular S1 and S2. No murmur, rub or gallop. [] LUNGS: Clear to auscultate bilaterally. [] ABDOMEN: Soft, nontender and nondistended. Positive bowel sounds. No guarding, rebound or tenderness. [] CENTRAL NERVOUS SYSTEM: Grossly nonfocal. [] EXTREMITIES: Lower extremities with 1+ edema bilaterally. Pulses palpable in the lower extremities, both dorsalis pedis and posterior tibial. [] Data : 03/23/22 19:18 03/24/22 01:25 A&P Assessment and plan (1) Worsening angina: Status: Acute (2) Paroxysmal atrial fibrillation: Status: Acute (3) History of pacemaker: Status: Acute (4) Essential hypertension: Status: Acute (5) Hypertension: Status: Acute Plan Patient's symptoms are consistent with unstable angina and are worsening recently. Trend troponins. We will start Plavix. Ordering echocardiogram. His pacemaker was interrogated today in the office however I do not have the report yet. We will follow on that. EKG not showing ischemic features Plan for coronary angiogram with possible percutaneous coronary intervention tomorrow. Risks and benefits of the procedure have been discussed with the patient who understands the risks and wants to proceed with the procedure. Attestations Medical Necessity Statement*: Care expected not to cross 2 midnights Coding Level of Care Code Acute Director Of Hemophilia for g Fwd Diagnoses Worsening angina I20.0 Paroxysmal atrial fibrillation I48.0 History of pacemaker Z95.0 Essential hypertension I10 Hypertension I10
--- NOTE | 2022-03-23 19:11 | ECG_ITS ---
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 Measurements Intervals [place] Rate: 61 P: 72 ID: [id number] QRS: 20 QRSD: 109 T: 33 QT: 425 QTc: 429 Interpretive Statements SINUS RHYTHM WITH FIRST DEGREE AV BLOCK Compared to ECG 03/23/2022 18:35:55 First degree AV block now present Atrial-paced complex(es) or rhythm no longer present Electronically Signed On 03-23-2022 22:28:31 CDT by Vivienne Camara M.D. [id number]
--- NOTE | 2022-03-23 19:17 | PC.NURSE ---
Pt was admitted to ICU via direct admission. Pt is currently having chest pain at a 02/04. is aware.
[2022-03-23 19:25] LABS: Basophils % 0.6 %; Eosinophils # 0.1 10^3/uL (0.0-0.8); Eosinophils % 1.8 %; Hematocrit 37.7 % (42.0-52.0); Hemoglobin 12.7 g/dL (11.7-16.6); Lymphocytes # 1.4 10^3/uL (0.8-4.8); Lymphocytes % 27.6 %; Mean Corpuscular HGB Conc 33.7 g/dL (30.0-36.0); Mean Corpuscular Hemoglobin 31.5 pg (28.0-34.0); Mean Corpuscular Volume 93.5 fl (80-94); Mean Platelet Volume 8.8 fL (7.4-10.4); Monocytes # 0.5 10^3/uL (0.2-0.9); Monocytes % 9.3 %; Neutrophils # 3.07 10^3/uL (1.8-7.7); Neutrophils % 60.5 %; Nucleated Red Blood Cells % 0 %; Platelet Count 166 10^3/cmm (130-400); Red Blood Count 4.03 10^6/uL (4.1-5.3); Red Cell Distribution Width 13.5 % (12.1-15.1); White Blood Count 5.1 10^3/uL (4.0-10.0)
[2022-03-23 19:44] LABS: Troponin(5th) Baseline 15 ng/L (0-15)
[2022-03-23 19:56] LABS: Anion Gap 13.9 (5-19); Blood Urea Nitrogen 23 mg/dL (8-23); Calcium 9.8 mg/dL (8.5-10.5); Carbon Dioxide 30 mmol/L (22-29); Chloride 93 mmol/L (98-107); Glucose 92 mg/dL (65-115); Osmolality Calculated 279 mOsm/kg (285-295); Potassium 3.9 mmol/L (3.5-5.1); Sodium 133 mmol/L (136-145)
[2022-03-23] MEDS: TRAMadol 50 mg Tablet PO (21:06)
[2022-03-23] MEDS: trazodone 50 mg Tablet 100 MG PO (21:06)
[2022-03-23] MEDS: acetaminophen 325 mg Tablet 650 MG PO (21:06)
[2022-03-23] MEDS: pramipexole 0.25 mg Tablet PO (21:06)
[2022-03-23 21:25] LABS: Troponin 5 2HR 14.35 ng/L (0-15)
--- NOTE | 2022-03-23 22:16 | PC.NURSE ---
Pt's oxygen saturation dropped to 77% while sleeping. 2L nasal cannula applied.
--- NOTE | 2022-03-23 23:11 | ECG_ITS ---
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 Measurements Intervals [place] Rate: 60 P: 258 SC: 285 QRS: 14 QRSD: 108 T: 28 QT: 424 QTc: 424 Interpretive Statements ELECTRONIC ATRIAL PACEMAKER Compared to ECG 03/23/2022 19:48:17 Sinus rhythm no longer present First degree AV block no longer present Electronically Signed On 03-25-2022 20:41:43 CDT by Basim Zeng M.D. [id number]
[2022-03-24] VITALS (30 sets, daily range): BP systolic 109–166; BP diastolic 45–104; PULSE 60–87; RESP 16–32; TEMP 36.3–36.6; O2SAT 90–100
--- NOTE | 2022-03-24 00:35 | USCV_ITS ---
Gabino Piña Age: 76 Gender: M : 1945 Exam Date: 03/24/2022 07:35 Ordering Phys: Basim Zeng M.D ([email or web address]) Technologist: Román Green Exam Location: [facility] [place] Indication: chest pain BP: 143 / 82 HR: 60 Rhythm: Sinus Technical Quality: Adequate MEASUREMENTS (Male / Female) Normal Values 2D ECHO LVOT Diameter 2.0 cm LV Ejection Fraction MOD 2C 59.8 % LV Ejection Fraction 2C AL 59.7 % LA Diameter 3.4 cm LA Width 3.9 cm LA Height 5.1 cm RA Width 3.4 cm RA Height 4.2 cm Aorta at Sinotubular Diameter 2.2 cm DOPPLER AV Peak Velocity 136.0 cm/s LVOT Peak Velocity 109.0 cm/s AV Area Cont Eq vti 2.6 cm squared AV Area Cont Eq pk 2.5 cm squared MV Peak Velocity 131.0 cm/s MV Area PHT 4.2 cm squared Mitral E to A Ratio 1.7 MV E' Velocity 66.0 cm/s Mitral E to MV E' Ratio 12.5 Mitral E to LV E' Lateral Ratio 11.4 Mitral E to LV E' Septal Ratio 13.9 Right Atrial Pressure 8.0 mmHg FINDINGS Left Ventricle Technically limited quality echocardiogram because of poor ultrasonic windows. Normal left ventricular size. LV systolic function is normal with EF of 55-60%. No regional wall motion abnormalities. Right Ventricle The right ventricle is normal in size and function. Right Atrium The right atrium is normal in size. Left Atrium The left atrium is normal in size. Mitral Valve Mild annular calcification without significant stenosis or prolapse. There is mild mitral regurgitation. Aortic Valve Grossly normal without significant stenosis. There is no aortic regurgitation. Tricuspid Valve Structurally normal tricuspid valve without significant stenosis or regurgitation. Pulmonary artery systolic pressure is normal. Pulmonic Valve Structurally normal pulmonic valve without significant stenosis. There is no pulmonic regurgitation. Pericardium Normal pericardium without effusion. Aorta Normal ascending aorta dimension. IVC CONCLUSIONS Technically limited quality echocardiogram because of poor ultrasonic windows. LV systolic function is normal with EF of 55-60% Mild mitral annular calcification. Mild mitral regurgitation Compared to prior echocardiogram from 11/15/2020, no significant changes are seen Basim Zeng MD (Electronically Signed) Final Date: 24 Mar 2022 20:15 S
--- NOTE | 2022-03-24 01:10 | PC.NURSE ---
Bilateral groin clipped, bilateral dorsalis pedis and posterior popliteal pulses marked with skin marker. Pt made NPO.
[2022-03-24 01:51] LABS: Anion Gap 13.7 (5-19); Blood Urea Nitrogen 22 mg/dL (8-23); Calcium 9.5 mg/dL (8.5-10.5); Carbon Dioxide 28 mmol/L (22-29); Chloride 96 mmol/L (98-107); Glucose 77 mg/dL (65-115); Osmolality Calculated 280 mOsm/kg (285-295); Potassium 3.7 mmol/L (3.5-5.1); Sodium 134 mmol/L (136-145)
[2022-03-24 01:52] LABS: Troponin 5 6HR 14.67 ng/L (0-15)
[2022-03-24] MEDS: calcium carbonate 500 mg Chew Tablet 1000 MG PO (02:40)
[2022-03-24] MEDS: sodium chloride 0.9% 1,000 ML 50 ML IV (05:01)
--- NOTE | 2022-03-24 05:19 | XACV_ITS ---
Exam Room: [facility] Ht: 175 cm Wt: 108 kg BSA: 2.33 m2 Gender: Male : 1945 Any Known Allergies: Other Exam Priority: Routine Procedure(s): Procedure Description: Diagnostic procedure Procedure Description: Left Heart Catheterization Procedure Description: Coronary Angiography Diagnostic Cath Status: Elective Diagnostic Findings * No significant disease noted in the Left Main, Left Anterior Descending, Right, or Circumflex coronary arteries. Patent prior LAD stents in the Left circumflex artery. * Coronary angiography shows left dominance. Conclusions 1. No significant disease noted in the Left Main, Left Anterior Descending, Right, or Circumflex coronary arteries. Patent prior LAD stents in the Left circumflex artery. Recommendations * Aggressive risk factor modification. * Outpatient cardiology follow up in 4 weeks. Interventional RX Recommendation: medical therapy and/or counseling Diagnostic RX Recommendation: medical therapy and/or counseling Pressures Phase:Rest AO : 138 / 94 ( 114 ) @ 7:18:00 AM 136 / 79 ( 105 ) @ 7:26:00 AM 138 / 77 ( 104 ) @ 7:26:00 AM LV : 137 / -1 / 21 @ 7:26:00 AM 133 / -1 / 14 @ 7:26:00 AM Valves Phase:DefaultPhase AV : 0.0 @ 6:31:28 AM AV Mean Gradient: 0.0 @ 6:31:28 AM Clinical Evaluation EBL: 5mL-10mL Procedural Details Procedure Consent Obtained. Admit Source: In Patient. Pre-Procedure Time Out. Identified patient by full name and date of as verbalized by the patient/guarantor. Does the consent match the physician's order: Yes. Accurate & Complete Informed Consent: Yes. Inpatient/Outpatient History & Physical on Chart: Yes. If H&P is completed, is and addenduem needed: N/A; If yes, is the addendum complete: N/A. Visualize and Verify Site with Patient/Guarantor: N/A. Relevant Radiology Images available: N/A. Pre-op teaching completed and patient verbalized understanding. The risks, benefits, and alternatives of sedation and/or procedure were discussed by physician. The patient agrees to continue. Procedure started. [facility] Clinical Fraility Score: 3: Managing Well. 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 Chest Pain Symptom Assessment: Typical Angina Symptoms. Correct patient, site and procedure confirmed by cath team. Current diagnosis: Chest Pain. PERRLA. Strong, equal hand sole leveler bilaterally. Lungs clear x 5 lobes. IV Site on Arrival: 20 gauge in the left forearm. IV Fluids: 0.9% NaCl at KVO. 0 mL infused prior to section laborer. Pre Procedural Pulses: right radial was 3+. Pre Procedural Pulses: bilateral dorsalis pedis was 2+. Oxygen started at 2liters/min via nasal canula. right groin was prepped with chloroprep then draped in the usual sterile fashion. right radial was prepped with chloroprep then draped in the usual sterile fashion. Physician notified. Baseline sample Acquired. HR: 60 BPM. Physician arrived. Physician scrubbed in. Immediate Pre-Procedure Time Out. Correct Patient: Yes; Correct Procedure: Yes; Correct Site: Yes; Correct Patient Position: Yes; Correct Supplies: Yes; Dried Flammable Prep: Yes; Blood Products Available: N/A;. Lidocaine 1% infiltrated to the right radial. Arterial access obtained. A 5 south african TIG catheter in over wire. Multiple views taken of left coronary artery. Catheter removed over the glide wire. A 5 south african JR4 catheter in over wire. Glidewire exchanged for standard wire. Multiple views taken of right coronary artery. EDP Sample taken: LV 137/-2,21; HR: 71 BPM; SpO2: Off%. Pullback taken: LV 133/-2,14; AO 136/79(105); Mean: 0mmHg, Peak to Peak: 0mmHg, SEP: 8sec/min; HR: 68 BPM; SpO2: 99%. Catheter out. A TR Band was successful obtaining hemostatsis at the Right Radial artery insertion site. Post Procedure: Pulses reassessed and unchanged. PERRLA. Strong, equal hand sole leveler bilaterally. No VTE prophylaxis required. Medication's Wasted: Lidocaine 1% = 5 mL. Medication's Wasted: Heparin = 1000 u. Medication's Wasted: Nitro = 49.8 mg. Medication's Wasted: Other = Fentanyl 25 mcg. Total IV fluids: 39 mL. Post-op diagnosis: Non obstructive CAD, patent previous stents. Complications: none. Estimated blood loss: 5mL-10mL. Responsiveness - Normal response to verbal stimuli; alert and oriented, PERRLA. Airway - Unaffected, no intervention required; spontaneous ventilation. Circulation: W/N/L, pulses unchanged. Nausea/Vomiting: No. Procedure completed. Patient transferred by wheelchair to ICU. Vital chart was stopped. Access Site Site: Right Radial artery Sheath Size: 6 Fr Hemostasis Method: TR Band Hemostasis Success: Successful Procedure Medications Start: 6:07 AM Stop: 6:07 AM Medication: Fentanyl Amount: 50 mcg Route: I.V. Start: 6:08 AM Stop: 6:08 AM Medication: 0.9% Saline Amount: 75 ml/hr Route: I.V. drip Start: 6:11 AM Stop: 6:11 AM Medication: Versed Amount: 1 mg Route: I.V. Start: 6:16 AM Stop: 6:16 AM Medication: Nitrogylcerin Amount: 200 mcg Route: I.A. Start: 6:17 AM Stop: 6:17 AM Medication: Heparin Amount: 5000 units Route: I.V. Start: 6:17 AM Stop: 6:17 AM Medication: Fentanyl Amount: 25 mcg Route: I.V. Start: 6:22 AM Stop: 6:22 AM Medication: Versed Amount: 1 mg Route: I.V. I, the attending physician, have reviewed and verified all procedure medications. Yes, all medications given per verbal order History/Risk Factors Hypertension: Yes Dyslipidemia: Yes Peripheral Arterial Disease (PAD): No Myocardial Infarction (IL): No Obesity: No Renal Disease: No Tobacco Use: Former Prior Interventions PCI: Yes CABG: No Valve Surgery: No Date of PCI: 10/28/2012 Report Signatures Finalized by Basim Zeng MD on 04/01/2022 10:50 PM
[2022-03-24] MEDS: diphenhydrAMINE 50 mg Capsule PO (05:22)
--- NOTE | 2022-03-24 05:47 | PC.NURSE ---
Pt to manager laboratory via w/c and manager laboratory staff.
--- NOTE | 2022-03-24 06:11 | W.PM.OPSUD ---
Surgery/Procedure H&P Update DATE OF PROCEDURE: March 24, 2022 DATE H&P PERFORMED: 03/23/22 H&P UPDATE INFORMATION: I have reviewed H&P completed within last 30 days, I have examined patient prior to procedure and No changes to prior documentation PREOP DIAGNOSIS: Unstable angina PRIMARY INDICATION FOR PROCEDURE: Unstable angina PLANNED PROCEDURE: Left heart cath with possible percutaneous coronary intervention PATIENT REASSESSED PRIOR TO SEDATION, WITH NO CHANGE NOTED: Yes PHYSICAL EXAM: alert, oriented x 3, clear to auscultation bilaterally and regular rate & rhythm AIRWAY EVAL/ANESTHESIA PLAN: ASA III, Monitored Anesthesia, Local Anesthesia, Risks, benefits & alternatives of sedation and/or procedure discussed and Patient agrees to continue as planned
--- NOTE | 2022-03-24 06:50 | PC.NURSE ---
Bedside report completed with STUART Kang.. Pt denies any chest pain. TR band in lace. NO hematomas or bleeding.
--- NOTE | 2022-03-24 08:10 | PC.NURSE ---
TR band releasing started. Pt tolerating well.
[2022-03-24] MEDS: chlorthalidone 25 mg Tablet PO (09:12)
[2022-03-24] MEDS: losartan 50 mg Tablet PO (09:12)
[2022-03-24] MEDS: ranolazine (12HR) 500 mg Tablet 1000 MG PO (09:12)
[2022-03-24] MEDS: pramipexole 0.25 mg Tablet PO (09:12)
[2022-03-24] MEDS: amlodipine 5 mg Tablet PO (09:13)
[2022-03-24] MEDS: carvedilol 12.5 mg Tablet PO (09:13)
[2022-03-24] MEDS: isosorbide mononitrate 20 mg Tablet 30 MG PO (09:25)
[2022-03-24 09:29] LABS: Basophils % 0.5 %; Eosinophils # 0.1 10^3/uL (0.0-0.8); Eosinophils % 2.3 %; Hematocrit 40.5 % (42.0-52.0); Hemoglobin 13.6 g/dL (11.7-16.6); Lymphocytes # 1.1 10^3/uL (0.8-4.8); Lymphocytes % 25.9 %; Mean Corpuscular HGB Conc 33.6 g/dL (30.0-36.0); Mean Corpuscular Hemoglobin 31.2 pg (28.0-34.0); Mean Corpuscular Volume 92.9 fl (80-94); Monocytes # 0.1 10^3/uL (0.2-0.9); Monocytes % 2.6 %; Neutrophils # 2.95 10^3/uL (1.8-7.7); Neutrophils % 68.7 %; Nucleated Red Blood Cells % 0 %; Platelet Count 184 10^3/cmm (130-400); Red Blood Count 4.36 10^6/uL (4.1-5.3); Red Cell Distribution Width 13.5 % (12.1-15.1); White Blood Count 4.3 10^3/uL (4.0-10.0)
--- NOTE | 2022-03-24 10:00 | PC.NURSE ---
TR band completed released. No bleeding or hematomas noted. Bioclusive dressing applied.
--- NOTE | 2022-03-24 10:53 | P.DS_ITS ---
Discharge Providers Date of Admission: 03/23/22 16:13 Date of Discharge: March 24, 2022 Attending Provider at Admission: Basim Zeng M.D Attending Provider at Discharge: Basim Zeng M.D Primary Care Provider: Ari Piña Diagnoses at Discharge Discharge Diagnosis (1) Worsening angina: (2) Paroxysmal atrial fibrillation: Status: Acute (3) History of pacemaker: Status: Acute (4) Essential hypertension: Status: Acute (5) Hypertension: Status: Acute Reason for Visit Reason for Visit: Unstable angina Brief History: 76 year old male with past medical history of coronary artery disease status post LAD stenting in 2010, hypertension, paroxysmal atrial fibrillation who presented to the office today with worsening chest pain symptoms.? According to patient over the last few weeks he has been having worsening chest pain.? He wakes up from his sleep with chest pain radiating to the jaw.? Feels similar to his pain prior to his prior PCI's.? He is on Xarelto for anticoagulation however has not taken it yesterday. Patient was admitted to the hospital from the clinic for coronary angiogram given his symptoms worrisome for unstable angina. Hospital Course Hospital Course Patient underwent coronary angiogram the following day that showed patent prior stents. Chest pain likely from microvascular dysfunction as patient has typical chest pain symptoms. ECHO showed normal LV systolic function. Patient has not been taking antihypertensive medications recently.we adjusted his medications and restarted coreg. Physical Exam Narrative: GENERAL: Patient is alert, awake and oriented x3. [] NECK: No jugular vein distension. [] HEENT: No cyanosis. No icterus. No pallor. [] HEART: Regular S1 and S2. No murmur, rub or gallop. [] LUNGS: Clear to auscultate bilaterally. [] ABDOMEN: Soft, nontender and nondistended. Positive bowel sounds. No guarding, rebound or tenderness. [] CENTRAL NERVOUS SYSTEM: Grossly nonfocal. [] EXTREMITIES: Lower extremities with 1+ edema bilaterally. Pulses palpable in the lower extremities, both dorsalis pedis and posterior tibial. 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 echo complete* [id number] Routine Ultrasound 03/24/22 00:35 Taken Laboratory Results WBC 4.3 10^3/uL (4.0-10.0) 03/24/22 09:09 RBC 4.36 10^6/uL (4.1-5.3) 03/24/22 09:09 Hgb 13.6 g/dL (11.7-16.6) 03/24/22 09:09 Hct 40.5 % (42.0-52.0) L 03/24/22 09:09 MCV 92.9 fl (80-94) 03/24/22 09:09 MCH 31.2 pg (28.0-34.0) 03/24/22 09:09 MCHC 33.6 g/dL (30.0-36.0) 03/24/22 09:09 RDW 13.5 % (12.1-15.1) 03/24/22 09:09 Plt Count 184 10^3/cmm (130-400) 03/24/22 09:09 MPV 9.0 fL (7.4-10.4) 03/24/22 09:09 Neut % (Auto) 68.7 % 03/24/22 09:09 Lymph % (Auto) 25.9 % 03/24/22 09:09 [place] % (Auto) 2.6 % 03/24/22 09:09 Eos % (Auto) 2.3 % 03/24/22 09:09 Baso % (Auto) 0.5 % 03/24/22 09:09 Neut # (Auto) 2.95 10^3/uL (1.8-7.7) 03/24/22 09:09 Lymph # (Auto) 1.1 10^3/uL (0.8-4.8) 03/24/22 09:09 Mercer # (Auto) 0.1 10^3/uL (0.2-0.9) L 03/24/22 09:09 Eos # (Auto) 0.1 10^3/uL (0.0-0.8) 03/24/22 09:09 Baso # (Auto) 0.0 10^3/uL (0.0-0.1) 03/24/22 09:09 Nucleated RBC % (auto) 0 % 03/24/22 09:09 Nucleated RBCs # 0.0 /100WBC 03/24/22 09:09 Sodium 134 mmol/L (136-145) L 03/24/22 01:25 Potassium 3.7 mmol/L (3.5-5.1) 03/24/22 01:25 Chloride 96 mmol/L (98-107) L 03/24/22 01:25 Carbon Dioxide 28 mmol/L (22-29) 03/24/22 01:25 Anion Gap 13.7 (5-19) 03/24/22 01:25 BUN 22 mg/dL (8-23) 03/24/22 01:25 Creatinine 0.8 mg/dL (0.7-1.2) 03/24/22 01:25 GFR Calculation Not Reportable 03/24/22 01:25 Glucose 77 mg/dL (65-115) 03/24/22 01:25 Calculated Osmolality 280 mOsm/kg (285-295) L 03/24/22 01:25 Calcium 9.5 mg/dL (8.5-10.5) 03/24/22 01:25 Troponin T Baseline 15 ng/L (0-15) 03/23/22 19:18 Troponin T 120 Minute 14.35 ng/L (0-15) 03/23/22 21:04 Delta Troponin T Not Reportable 03/23/22 21:04 Troponin T Hi Sens 6Hr 14.67 ng/L (0-15) 03/24/22 01:25 Troponin T Hi Sens 6Hr Delta Not Reportable 03/24/22 01:25 Vitals Last Vital Signs Temp 97.3 F L 03/24/22 04:00 Pulse 60 03/24/22 06:41 Resp 20 H 03/24/22 06:41 BP 110/73 03/24/22 09:12 Pulse Ox 94 03/24/22 06:41 Discharge Plan Discharge Patient Disposition: Home Condition: Stable Prescriptions: Continued tamsulosin 0.4 mg capsule 0.4 mg PO DAILY 0RF pramipexole 0.25 mg tablet 0.25 mg PO TID 0RF H2Q CoQ10 200 mg/gram powder 300 mg PO DAILY 0RF trazodone 50 mg tablet 100 mg PO BEDTIME 0RF (DME) Walker See Rx Instructions .Route .MEDSUPPLY Qty: 1 0RF Rx Instructions: As directed prednisolone acetate 1 % drops,suspension 2 drp ophthalmic (eye) DAILY 0RF Rx Instructions: BOTH EYES furosemide 40 mg tablet 40 mg PO DAILY PRN (Reason: Weight Gain) Qty: 90 3RF carvedilol 12.5 mg tablet 12.5 mg PO BID Qty: 180 3RF isosorbide mononitrate 20 mg tablet 30 mg PO BID Qty: 135 3RF Rx Instructions: give doses 7 hrs apart nitroglycerin 0.4 mg tablet, sublingual 0.4 mg sublingual Q5M PRN (Reason: chest pain) Qty: 25 3RF Rx Instructions: do not exceed 3 doses per episode Xarelto 20 mg tablet 20 mg PO DAILY Qty: 90 3RF Rx Instructions: must administer with evening meal rosuvastatin 40 mg tablet 40 mg PO DAILY Qty: 90 3RF ranolazine 500 mg tablet extended release 12 hr 1,500 mg PO DIRECTED Qty: 270 3RF Rx Instructions: take 2 tabs at 8AM and 1 tab at 3PM tramadol 50 mg Tablet 50 mg PO BEDTIME 0RF Held metformin 500 mg Tablet 500 mg PO BID Qty: 0 0RF Hold Instructions: Resume on 03/26/22. Discontinued chlorthalidone 25 mg tablet 25 mg PO DAILY Qty: 90 3RF irbesartan 150 mg tablet 150 mg PO DAILY Qty: 90 3RF Discharge Orders: Discharge Order (Routine); Ordered 03/24/22 Ordered By: Basim Zeng Referrals: Basim Zeng M.D [Physician] - 1 month Amber Reynolds FNP [Nurse Practitioner] - 7-10 days Discharge Diet: Cardiac Discharge Activity: Increase activity as tolerated Patient Instructions: Hypertension, Angina (DC), Coronary Artery Disease (DC), Opioid Safety Activity Restrictions/Additional Instructions: Please do not lift more than 5 pounds of weight for the next 5 days Discharge Attestations Time Spent in Discharge Care*: greater than 30 min Status at Discharge: Cognitive status at discharge: mildly impaired cognition (Unchanged from preoperative) , Behavioral status at discharge: cooperative , Quality Metrics Clinical Quality Measures [ No reported AMI, CVA or VTE this stay] Coding Level of Care Code Acute Chg FW DC note Diagnoses Worsening angina I20.0 Paroxysmal atrial fibrillation I48.0 History of pacemaker Z95.0 Essential hypertension I10 Hypertension I10
--- NOTE | 2022-03-24 12:20 | PC.NURSE ---
Pt preferred to walk to cafeteria, to get a no salt burger and wait for his friend, his ride home, there.
--- NOTE | 2022-03-24 12:38 | PC.NURSE ---
Discharge instructions provided. Pt instructed to call Mon/Tues for follow-up appts. Medications to continue, stop and hold until 03/26 discussed. Pt verbalized understanding. Care noted for Coronary artery disease, angina and Htn provided. Pt prefers to read those at home.
== END 2022-03-24 12:15 | disposition home or self-care (01) | DRG 287 ==
PROVIDERS: Admitting Provider Internal Medicine; PCP Student in an Organized Health Care Education/Training Program; Visit Provider Internal Medicine
PROC: B211YZZ Fluoroscopy of Multiple Coronary Arteries using Other Contrast (ICD-10-PCS; principal; 2022-03-24 06:00)
DX: I25.110 Atherosclerotic heart disease of native coronary artery with unstable angina pectoris (principal); I10 Essential (primary) hypertension; I48.0 Paroxysmal atrial fibrillation; K21.9 Gastro-esophageal reflux disease without esophagitis; Z95.0 Presence of cardiac pacemaker; E78.5 Hyperlipidemia, unspecified; I34.0 Nonrheumatic mitral (valve) insufficiency; G47.33 Obstructive sleep apnea (adult) (pediatric); G25.81 Restless legs syndrome; Z87.891 Personal history of nicotine dependence; Z91.14 Patient's other noncompliance with medication regimen; Z79.891 Long term (current) use of opiate analgesic; Z79.01 Long term (current) use of anticoagulants
CPT/HCPCS: 36415; 80048; 84484; 85025; 93005; 93280; 93306; 93452; 93458; 96360; 99152; 99214; 99215; C1769; C1887; C1894; J1644; J2250; J3010; J3490; J7030; Q0163; Q9967

== ENCOUNTER → 2022-03-29 13:42 | Outpatient (BNVA) | payer MEDICARE, SELFPAY | PROVIDERS: PCP Student in an Organized Health Care Education/Training Program; Visit Provider Nurse Practitioner Family | DX: I25.10 Atherosclerotic heart disease of native coronary artery without angina pectoris (principal); I10 Essential (primary) hypertension; Z98.62 Peripheral vascular angioplasty status; Z87.891 Personal history of nicotine dependence | CPT/HCPCS: 80048; 99214 ==

== ENCOUNTER → 2022-04-09 10:28 | Outpatient (BNVA) | payer MEDICARE, SELFPAY | PROVIDERS: PCP Student in an Organized Health Care Education/Training Program; Visit Provider Specialist | DX: Z96.652 Presence of left artificial knee joint (principal) | CPT/HCPCS: 73560; 73565; 99213 ==

== ENCOUNTER → 2022-07-06 11:07 | Outpatient (BNVA) | payer MEDICARE, SELFPAY | PROVIDERS: PCP Student in an Organized Health Care Education/Training Program; Visit Provider Internal Medicine | DX: I34.0 Nonrheumatic mitral (valve) insufficiency (principal); I10 Essential (primary) hypertension; I25.110 Atherosclerotic heart disease of native coronary artery with unstable angina pectoris; Z87.891 Personal history of nicotine dependence | CPT/HCPCS: 99214 ==

== ENCOUNTER → 2022-07-20 10:36 | Outpatient (BNVA) | payer MEDICARE, SELFPAY | PROVIDERS: PCP Physician Assistant; Visit Provider Internal Medicine | DX: Z45.010 Encounter for checking and testing of cardiac pacemaker pulse generator [battery] (principal) | CPT/HCPCS: 93280 ==

== ENCOUNTER → 2022-09-14 08:51 | Outpatient (BNVA) | payer MEDICARE, SELFPAY | PROVIDERS: PCP Physician Assistant; Visit Provider Nurse Practitioner Family | DX: I10 Essential (primary) hypertension (principal); Z87.891 Personal history of nicotine dependence | CPT/HCPCS: 99213 ==

== ENCOUNTER → 2022-10-08 10:15 | Outpatient (BNVA) | payer MEDICARE, SELFPAY | PROVIDERS: PCP Physician Assistant; Visit Provider Specialist | DX: M19.011 Primary osteoarthritis, right shoulder (principal) | CPT/HCPCS: 20610; 73030; 99213; J1100; J2795; J3301 ==

== ENCOUNTER → 2022-10-15 09:23 | Outpatient (BNVA) | payer MEDICARE, SELFPAY | PROVIDERS: PCP Physician Assistant; Visit Provider Specialist | DX: T84.84XA Pain due to internal orthopedic prosthetic devices, implants and grafts, initial encounter (principal); Y79.2 Prosthetic and other implants, materials and accessory orthopedic devices associated with adverse incidents; S82.001A Unspecified fracture of right patella, initial encounter for closed fracture; X58.XXXA Exposure to other specified factors, initial encounter; Z96.651 Presence of right artificial knee joint | CPT/HCPCS: 73560; 73565; 99214 ==

== ENCOUNTER 2022-10-30 15:09 | Observation (INO) | payer MEDICARE, SELFPAY ==
[2022-10-30] VITALS (49 sets, daily range): BP systolic 129–147; BP diastolic 77–100; PULSE 60–111; RESP 12–26; TEMP 36.4–36.6; O2SAT 88–100
--- NOTE | 2022-10-30 15:15 | ECG_ITS ---
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 Measurements Intervals [place] Rate: 60 P: 57 DE: 231 QRS: 31 QRSD: 101 T: 27 QT: 399 QTc: 399 Interpretive Statements ELECTRONIC ATRIAL PACEMAKER LOW QRS VOLTAGE IN PRECORDIAL LEADS [QRS DEFLECTION < 1.0 mV IN CHEST LEADS] ABNORMAL RHYTHM ECG INTERPRETATION BASED ON A DEFAULT AGE OF 40 YEARS Compared to ECG 03/23/2022 23:20:11 Low QRS voltage now present Electronically Signed On 10-30-2022 20:29:37 STRATEGIC ADVISOR by Vivienne Camara M.D. [id number]
--- NOTE | 2022-10-30 15:23 | XR_ITS ---
WS: [id number] Portable AP upright chest, 10/30/2022 Clinical Data: CHEST PAIN Comparison: Portable chest, 03/11/2022 Findings: No nodules, masses or effusions are seen. The heart is normal. The pulmonary vascularity is not increased. No pneumonia or pneumothorax is seen. The aortic arch and descending thoracic aorta s how tortuosity. There is a 2-lead pacemaker with the generator overlying the left lateral chest wall. 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 XR/XR chest 1V portable [id number] Impression: Atherosclerosis and permanent cardiac pacemaker.
[2022-10-30 15:43] LABS: Basophils % 0.4 %; Eosinophils # 0.1 10^3/uL (0.0-0.8); Eosinophils % 1.9 %; Hematocrit 39.7 % (42.0-52.0); Lymphocytes # 1.6 10^3/uL (0.8-4.8); Lymphocytes % 29.3 %; Mean Corpuscular HGB Conc 32.7 g/dL (30.0-36.0); Mean Corpuscular Hemoglobin 31.6 pg (28.0-34.0); Mean Corpuscular Volume 96.4 fl (80-94); Mean Platelet Volume 8.8 fL (7.4-10.4); Monocytes # 0.5 10^3/uL (0.2-0.9); Monocytes % 9.1 %; Neutrophils # 3.17 10^3/uL (1.8-7.7); Neutrophils % 59.1 %; Nucleated Red Blood Cells % 0 %; Platelet Count 178 10^3/cmm (130-400); Red Blood Count 4.12 10^6/uL (4.1-5.3); Red Cell Distribution Width 14.1 % (12.1-15.1); White Blood Count 5.4 10^3/uL (4.0-10.0)
[2022-10-30 16:08] LABS: Troponin(5th) Baseline 33 ng/L (0-15)
[2022-10-30 16:11] LABS: Alanine Aminotransferase 18 U/L (0-41); Albumin Level 4.5 g/dL (3.5-5.2); Alkaline Phosphatase 60 U/L (40-130); Anion Gap 16.2 (5-19); Aspartate Amino Transferase 19 U/L (0-40); Blood Urea Nitrogen 25 mg/dL (8-23); Calcium 9.6 mg/dL (8.5-10.5); Carbon Dioxide 26 mmol/L (22-29); Chloride 101 mmol/L (98-107); Globulin 1.9 g/dL (1.3-4.6); Glucose 95 mg/dL (65-115); Osmolality Calculated 292 mOsm/kg (285-295); Potassium 4.2 mmol/L (3.5-5.1); Sodium 139 mmol/L (136-145); Total Bilirubin 0.6 mg/dL (0.15-1.2); Total Protein 6.4 g/dL (6.6-8.7)
--- NOTE | 2022-10-30 16:42 | W.ED.CHESTPA ---
HPI - Chest Pain General: Chief Complaint: Chest Pain Stated Complaint: Chest discomfort/abnormal labs Time Seen by Provider: 10/30/22 16:42 History of Present Illness: Mr. Piña is a 77-year-old gentleman with significant past medical history of hypertension, hyperlipidemia, paroxysmal atrial fibrillation, obesity, CAD presenting to the emergency department due to chest pain. He reports a longstanding history of chest pain which typically goes away with rest however starting 2 days ago he did more severe substernal chest heaviness and pressure that did not improve with nitroglycerin. There is some radiation of the back as well as associated night sweats, shortness of breath, and exertional worsening. Intensity symptoms is currently mild to moderate. No other specific changes in health, exacerbating, or alleviating factors identified. Onset (ago): day(s) Timing of current episode: constant Onset: during rest Pain location: substernal Pain radiation: back Severity: moderate Quality: tightness and heaviness Relieving factors: nothing Exacerbating factors: exertion Associated symptoms: Reports diaphoresis and dyspnea Review of Systems General: Reports: 10 or more systems reviewed and unremarkable except in HPI and below Const: Reports: diaphoresis Resp: Reports: dyspnea PFSH ED PFSH: Medical History Anemia Coronary arteriosclerosis Dissection of artery of lower extremity Essential hypertension Gastroesophageal reflux Headache History of nonmelanoma skin cancer History of pacemaker Hyperlipidemia Mitral valve regurgitation Obstructive sleep apnea Osteoarthritis Paroxysmal atrial fibrillation Restless leg syndrome Tremor Uncontrolled hypertension Worsening angina Surgical History History of cardiac radiofrequency ablation History of right knee surgery S/P cardiac pacemaker procedure S/P total knee replacement Right knee Family History Other Cancer Chronic kidney disease (CKD) Heart disease Social History Smoking and tobacco status: former smoker History of recent travel: No Physical Exam Const: COMMON NORMALS: alert GENERAL APPEARANCE: cooperative and well developed HENMT: COMMON NORMALS: normocephalic and atraumatic HEAD & SCALP: normocephalic and atraumatic Eye: COMMON NORMALS: conjunctivae normal CONJUNCTIVA: Yes conjunctivae normal SCLERA: sclerae normal Neck/C-Spine: COMMON NORMALS: supple GENERAL: Yes trachea midline Resp: COMMON NORMALS: clear to auscultation bilaterally EFFORT & INSPECTION: Yes able to speak in complete sentences AUSCULTATION: clear to auscultation bilaterally Cardio: COMMON NORMALS: regular rate and regular rhythm RATE: regular rate RHYTHM: regular rhythm GI: COMMON NORMALS: Soft to palpation PALPATION: Yes Soft to palpation and No Tenderness to palpation present (GI) Extremity: GENERAL: Yes normal exam except as noted and No edema Neuro: COMMON NORMALS: moves all extremities SENSORIUM/ORIENTATION: Yes alert and No Orientation impaired Psych: COMMON NORMALS: mental status grossly normal and Normal thought process present THOUGHT PROCESS: Normal thought process present Course Vital Signs: Vital signs: Vital Signs Temperature 98.1 F 10/31/22 08:35 Pulse Rate 86 10/31/22 11:07 Respiratory Rate 16 10/31/22 11:07 Blood Pressure 179/106 10/31/22 08:35 Pulse Oximetry 95 10/31/22 11:07 Oxygen Delivery Me thod 10/31/22 08:50 MDM - Chest Pain Medical Decision Making 77-year-old gentleman with cardiac history presenting for worsening chest pain and abnormal troponin at outside facility. EKG shows atrial paced rhythm with first-degree AV block, nonspecific borderline interventricular conduction delay, no STEMI. Labs with no significant hematologic or metabolic abnormalities. Elevated initial troponin with negative range 2-hour delta. Chest x-ray with no lobar consolidation or pneumothorax. The patient's presenting symptoms are concerning for change in characteristic and intensity, therefore patient requires further inpatient evaluation of possible unstable angina. The results of ED evaluation were discussed with the patient including plan for admission due to requirement for level of care not available if discharged to prevent significant worsening/deterioration. Patient agreeable with plan. Discussed with hospitalist service who was agreeable to admit patient. Medical Records I reviewed the patient's medical records. Lab Data I reviewed the patient's lab results. 10/30/22 15:37 10/30/22 15:37 Radiology Impressions Chest X-Ray 10/30/22 15:23 Impression: Atherosclerosis and permanent cardiac pacemaker. Laboratory Results WBC 5.4 10^3/uL (4.0-10.0) 10/30/22 15:37 RBC 4.12 10^6/uL (4.1-5.3) 10/30/22 15:37 Hgb 13.0 g/dL (11.7-16.6) 10/30/22 15:37 Hct 39.7 % (42.0-52.0) L 10/30/22 15:37 MCV 96.4 fl (80-94) H 10/30/22 15:37 MCH 31.6 pg (28.0-34.0) 10/30/22 15:37 MCHC 32.7 g/dL (30.0-36.0) 10/30/22 15:37 RDW 14.1 % (12.1-15.1) 10/30/22 15:37 Plt Count 178 10^3/cmm (130-400) 10/30/22 15: MPV 8.8 fL (7.4-10.4) 10/30/22 15:37 Neut % (Auto) 59.1 % 10/30/22 15:37 Lymph % (Auto) 29.3 % 10/30/22 15:37 [place] % (Auto) 9.1 % 10/30/22 15:37 Eos % (Auto) 1.9 % 10/30/22 15:37 Baso % (Auto) 0.4 % 10/30/22 15:37 Neut # (Auto) 3.17 10^3/uL (1.8-7.7) 10/30/22 15:37 Lymph # (Auto) 1.6 10^3/uL (0.8-4.8) 10/30/22 15:37 [place] # (Auto) 0.5 10^3/uL (0.2-0.9) 10/30/22 15:37 Eos # (Auto) 0.1 10^3/uL (0.0-0.8) 10/30/22 15:37 Baso # (Auto) 0.0 10^3/uL (0.0-0.1) 10/30/22 15:37 Nucleated RBC % (auto) 0 % 10/30/22 15:37 Nucleated RBCs # 0.0 /100WBC 10/30/22 15:37 Sodium 139 mmol/L (136-145) 10/30/22 15:37 Potassium 4.2 mmol/L (3.5-5.1) 10/30/22 15:37 Chloride 101 mmol/L (98-107) 10/30/22 15:37 Carbon Dioxide 26 mmol/L (22-29) 10/30/22 15:37 Anion Gap 16.2 (5-19) 10/30/22 15:37 BUN 25 mg/dL (8-23) H 10/30/22 15:37 Creatinine 1.0 mg/dL (0.7-1.2) 10/30/22 15:37 GFR Calculation Not Reportable 10/30/22 15:37 Glucose 95 mg/dL (65-115) 10/30/22 15:37 Calculated Osmolality 292 mOsm/kg (285-295) 10/30/22 15:37 Calcium 9.6 mg/dL (8.5-10.5) 10/30/22 15:37 Total Bilirubin 0.6 mg/dL (0.15-1.2) 10/30/22 15:37 AST 19 U/L (0-40) 10/30/22 15:37 ALT 18 U/L (0-41) 10/30/22 15:37 Alkaline Phosphatase 60 U/L (40-130) 10/30/22 15:37 Troponin T Baseline 33 ng/L (0-15) H 10/30/22 15:37 Troponin T 120 Minute 35.49 ng/L (0-15) H 10/30/22 18:25 Delta Troponin T 2.49 ABS# (0-10) 10/30/22 18:25 Total Protein 6.4 g/dL (6.6-8.7) L 10/30/22 15:37 Albumin 4.5 g/dL (3.5-5.2) 10/30/22 15:37 Globulin 1.9 g/dL (1.3-4.6) 10/30/22 15:37 Discharge Plan Discharge Patient Disposition: Placed in Observation Admit Provider: Hyun Norris Clinical Impression: Chest pain Discharge Diet: Cardiac Coding Level of Care Code ED Advance Seal Delivery System Maintainer for Chg Fwd Exam Comprehensive
--- NOTE | 2022-10-30 17:21 | PC.PHAR ---
pt states he takes care of his own medications-pt states had build up of carvedilol and takes 25mg hs-ext med history shows 12.5mg bid last filled 09/07/22 30d/s-pt states his gives him alot of otc meds but thinks he named most of them-
--- NOTE | 2022-10-30 18:05 | ECG_ITS ---
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 Measurements Intervals [place] Rate: 60 P: 245 [place]: 240 QRS: 45 QRSD: 105 T: 50 QT: 432 QTc: 432 Interpretive Statements ELECTRONIC ATRIAL PACEMAKER Compared to ECG 10/30/2022 15:15:33 No significant changes Electronically Signed On 10-31-2022 10:31:00 PULPWOOD BUYER by Basim Zeng M.D. [id number]
[2022-10-30 19:03] LABS: Troponin 5 2HR 35.49 ng/L (0-15)
[2022-10-30 19:05] LABS: Troponin 5 2HR Delta 2.49 ABS# (0-10)
--- NOTE | 2022-10-30 20:15 | PM.HP ---
Providers/Chief Complaint Admitting Physician: Hyun Norris MD Primary Care Provider: DEANNA Solis Chief Complaint: Chest discomfort/abnormal labs History of Present Illness Gabino Piña is a 77 year old male with past medical history of hypertension, hyperlipidemia, paroxysmal atrial fibrillation, obesity, coronary artery disease status post 4 stents (one of them is bare-metal) follows with Dr. 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 He does have a history of angina for which he uses nitroglycerin usually the chest pain goes away however this time the pressure and pain has been persistent. This started about 2 days ago and he says it is more like a chest heaviness and pressure that is around the substernal region. It also radiates to the back and sometimes patient gets diaphoretic short of breath and it does worsen with exertion. He does not describe any worsening or alleviating factors. Patient did have a cardiac cath done in Oct 2020 which did not show any significant disease noted in left main, LAD, circumflex or RCA coronary arteries. Also had a stress test done in October 2020. Echo October 2020 showed diastolic dysfunction and normal EF. Moderate mitral regurgitation. He states this all started on Saturday after episcopalian and had the worst pain he has had in his life. He got diaphoretic and short of breath went to the ER at [facility]. EKG was done and troponin was done. He was told his troponin was high and they wanted to admit him but patient refused admission and went home because he wanted to be admitted at [facility] since his bag machine tender and doctors are here. He tried to reach out to cardiology office yesterday and today but he states nobody picked up the phone. He also went through the typesetting machine operator/tender ultimately and was transferred to the clinic however no one picked up the phone again. Due to chest pain being persistent he came to the ER today. He says he was told by Dr. Garzon that he has small vessel coronary artery disease. Patient has an Pradaxa and Imdur. He has been having issues with hypotension lately. He tries to use a stationary bike however lately has not been using it since he had a fall due to hypotension. There is a suspicion of patellar fracture for which he is getting worked up as an outpatient with orthopedic surgery. Patient's carvedilol was reduced to 3.125 twice daily by recent cardiology visit. Currently patient is chest pain-free at this time. ED course: Blood pressure 146/92, respirate 16, pulse 64, temperature 97.9, pulse ox 97%. EKG shows paced rhythm. Does not meet sgarbossa criteria. Baseline troponin 33, 2-hour 35.49, delta troponin negative. ER physician talked with cardiology who recommended to admit patient for stress test in a.m. Medications/Allergies Home Medications Medication Instructions Recorded Confirmed Last Taken Type pramipexole 0.25 mg tablet 0.25 mg PO TID 03/15/20 10/30/22 10/30/22 History tamsulosin 0.4 mg capsule 0.4 mg PO BEDTIME 03/15/20 10/30/22 10/29/22 History prednisolone acetate 1 % eye 1 drp ophthalmic (eye) BID 11/30/20 10/30/22 10/30/22 History drops,suspension metformin 500 mg tablet 500 mg PO BID@08,20 ##0 12/08/20 10/30/22 10/30/22 History trazodone 50 mg tablet 100 mg PO BEDTIME 05/03/21 10/30/22 10/29/22 History nitroglycerin 0.4 mg sublingual 0.4 mg sublingual Q5M PRN chest 11/02/21 10/30/22 10/28/22 Rx tablet pain #25 tabs tramadol 50 mg tablet 100 mg PO BEDTIME 11/07/21 10/30/22 10/29/22 History Chewable Beets 2 - 3 tab PO BID 10/30/22 10/30/22 10/30/22 History acetaminophen 500 mg tablet 1,000 mg PO BEDTIME 10/30/22 10/30/22 10/29/22 History carvedilol 25 mg tablet 25 mg PO BEDTIME 10/30/22 10/30/22 10/29/22 History coenzyme Q10 100 mg capsule 100 mg PO DAILY 10/30/22 10/30/22 Unknown History (CoQ-10) furosemide 40 mg tablet 40 mg PO QAM Weight Gain 10/30/22 10/30/22 10/30/22 History isosorbide mononitrate 20 mg tablet 30 mg PO BID@08,15 10/30/22 10/30/22 10/30/22 15:00 History omukjjab-muigwzge-mzec 45 mg-folic 1 cap PO DAILY 10/30/22 10/30/22 Unknown History acid 800 mcg-vit K 120 mcg capsule (Bariatric Multivitamins) ranolazine 500 mg tablet,extended See Rx Instructions .Route .COMPLEX 10/30/22 10/30/22 10/30/22 15:00 History release,12 hr rivaroxaban 20 mg tablet (Xarelto) 20 mg PO DAILY@15 10/30/22 10/30/22 10/30/22 History rosuvastatin 40 mg tablet 40 mg PO BEDTIME 10/30/22 10/30/22 10/29/22 History vit C 250 mg-vit E 90 mg-zinc 40 1 tab PO BID 10/30/22 10/30/22 10/30/22 History mg-copper 1 gf-mhlbsc-sjawuo capsule (PreserVision AREDS-2) zinc acetate 50 mg (zinc) capsule 50 mg PO DAILY 10/30/22 10/30/22 Unknown History Allergies Allergy/AdvReac Type Severity Reaction Status Date / Time aspirin Allergy bleeding Verified 10/30/22 17:04 NSAIDS (Non-Steroidal Allergy bleeding Verified 10/30/22 17:04 Anti-Inflamma PFSH Acute PFSH: Medical History Anemia Coronary arteriosclerosis Dissection of artery of lower extremity Essential hypertension Gastroesophageal reflux Headache History of nonmelanoma skin cancer History of pacemaker Hyperlipidemia Mitral valve regurgitation Obstructive sleep apnea Osteoarthritis Paroxysmal atrial fibrillation Restless leg syndrome Tremor Uncontrolled hypertension Worsening angina Surgical History History of cardiac radiofrequency ablation History of right knee surgery S/P cardiac pacemaker procedure S/P total knee replacement Right knee Family History Other Cancer Chronic kidney disease (CKD) Heart disease Social History Smoking and tobacco status: former smoker History of recent travel: No Vitals/I&O/Wt Last Vital Signs Temp 97.5 F L 10/30/22 20:10 Pulse 60 10/30/22 20:10 Resp 14 10/30/22 20:10 BP 147/94 10/30/22 20:10 Pulse Ox 98 10/30/22 20:10 O2 Del Method 10/30/22 19:37 Weight last 48 hrs Weight 110.223 kg Physical Exam Narrative: General: Alert oriented x3, patient seen laying in bed HEENT: Normocephalic, atraumatic, EOMI, breathing room air. Cardio: Regular rate rhythm, normal S1-S2, Respiratory: Clear to auscultation bilaterally no wheezes no rhonchi. GI: Abdomen soft, nontender, nondistended, bowel sounds + Extremities: No bilateral lower extremity edema present. Data 10/30/22 15:37 10/30/22 15:37 A&P Assessment and plan (1) Chest pain: (2) Hypertension: (3) Dissection of artery of lower extremity: (4) Mitral valve regurgitation: Qualifiers: Cardiac valve disease etiology: nonrheumatic Qualified Code(s): I34.0 - Nonrheumatic mitral (valve) insufficiency (5) Paroxysmal atrial fibrillation: (6) History of pacemaker: (7) Essential hypertension: (8) Essential tremor: Plan #Chest pain, chronic angina #Paroxysmal atrial fibrillation #Coronary artery disease status post PCI stents x4 #Hypertension, hyperlipidemia #History of coronary artery disease #Mitral valve regurgitation #Iliac artery dissection? #Chronic angina #Chronic diastolic congestive heart failure ? Continue Coreg, Imdur, Xarelto, rosuvastatin.. Patient is intolerant of aspirin and NSAIDs. ? Check echo for wall motion abnormality ? Trend troponins ? Repeat EKG if chest pain occurs again ? Stress test in a.m. copy results to Dr. Dyer ? Continue all home medications for now - Consult cardiology. Dr. Zeng will see patient. ? Continue eyedrops as ordered. ? Hold metformin ? Accu-Chek AC at bedtime. We will hold off on adding sliding scale insulin and monitor blood sugar for now. ? Continue ranolazine, Imdur Full code DVT prophylaxis: Patient on Xarelto that should suffice. Attestations Medical Necessity Statement*: Observation for chest pain. Stress test in a.m. Coding Level of Care Code Acute Staff Scientist for [facility] Fwd Diagnoses Chest pain R07.9 Hypertension I10 Dissection of artery of lower extremity I77.77 Mitral valve regurgitation I34.0 Cardiac valve disease etiology: nonrheumatic Paroxysmal atrial fibrillation I48.0 History of pacemaker Z95.0 Essential hypertension I10 Essential tremor G25.0
--- NOTE | 2022-10-30 21:29 | ECG_ITS ---
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 Interpretive Statements NAME OF STUDY: LEXISCAN SESTAMIBI STRESS TEST INDICATION: [Chest Pain] Procedure: At the baseline, the blood pressure was 175/88 mmHg with a heart rate of 68 bpm. The electrocardiogram showed normal sinus rhythm, normal axis with normal ST and T's. The Lexiscan was infused over a period of 20 seconds. A total of 0.4 mg of Lexiscan was infused. The stress phase was continued for a total of 5 minutes. Heart rate was at the end of stress phase was 66 bpm and a blood pressure of 142/91 mmHg. The EKG at the peak infusion revealed normal sinus rhythm with no significant ST-T wave changes. Sestamibi was injected 20 seconds after the Lexiscan infusion. Blood pressure at the end of recovery phase was 152/84 mmHg with a heart rate of 64 bpm. Conclusion: 1. Normal EKG response to Lexiscan infusion 2. No Lexiscan induced chest pain or cardiac arrhythmia. 3. Normal blood pressure and heart rate response. 4. Sestamibi/sestamibi perfusion scan pending; see separate report. Electronically Signed On 11-01-2022 19:11:31 SOCIAL SCIENCES RESEARCH SCIENTIST by Basim Zeng M.D. [id number]
[2022-10-30] MEDS: pantoprazole 40 mg SDV IVP (21:46)
[2022-10-30] MEDS: atorvastatin 40 mg Tablet PO (21:46)
--- NOTE | 2022-10-30 22:54 | ECG_ITS ---
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 Measurements Intervals [place] Rate: 60 P: 227 MT: 255 QRS: 36 QRSD: 110 T: 55 QT: 434 QTc: 434 Interpretive Statements ELECTRONIC ATRIAL PACEMAKER LOW QRS VOLTAGE IN PRECORDIAL LEADS [QRS DEFLECTION < 1.0 mV IN CHEST LEADS] NONSPECIFIC T-WAVE ABNORMALITY Compared to ECG 10/30/2022 18:05:10 Low QRS voltage now present T-wave abnormality now present Electronically Signed On 10-31-2022 10:30:27 INTERNET TECHNOLOGY MANAGER by Basim Zeng M.D. [id number]
[2022-10-30 23:06] LABS: Troponin 5 6HR 36.49 ng/L (0-15)
[2022-10-30 23:07] LABS: Troponin 5 6HR Delta 3.49 ng/L (0-12)
[2022-10-30 23:10] LABS: NT Pro B Type Natriuretic Pept 283 pg/mL (0-450)
[2022-10-30 23:13] LABS: Thyroid Stimulating Hormone 2.86 uIU/mL (0.27-4.20)
[2022-10-31] VITALS (55 sets, daily range): BP systolic 129–179; BP diastolic 77–106; PULSE 60–86; RESP 3–30; TEMP 36.3–36.7; O2SAT 67–98
--- NOTE | 2022-10-31 00:32 | USCV_ITS ---
Gabino Piña Age: 77 Gender: M : 1945 Exam Date: 10/31/2022 01:13 Ordering Phys: Hyun Norris MD Technologist: ANDREA Exam Location: [facility] Indication: chest pain, hx HTN, hx afib, hx CAD post 4 cardiac stents, s/p pacer 2011. BP: 129 / 77 HR: 59 Rhythm: Sinus Technical Quality: Adequate MEASUREMENTS (Male / Female) Normal Values 2D ECHO LV Diastolic Diameter PLAX 4.8 cm 4.2 - 5.9 / 3.9 - 5.3 cm LV Systolic Diameter PLAX 3.3 cm IVS Diastolic Thickness 0.8 cm 0.6 - 1.0 / 0.6 - 0.9 cm IVS Systolic Thickness 1.1 cm LVPW Diastolic Thickness 1.0 cm 0.6 - 1.0 / 0.6 - 0.9 cm LVPW Systolic Thickness 1.1 cm LVOT Diameter 2.1 cm LV Ejection Fraction 2D Teich 59.7 % LV Ejection Fraction MOD 2C 62.1 % LV Ejection Fraction 2C AL 64.7 % LA Diameter 4.5 cm LA Width 3.1 cm LA Height 5.1 cm RA Width 3.3 cm RA Height 3.9 cm Aorta at Sinotubular Diameter 3.4 cm IVC Diameter 2.1 cm M-MODE Aortic Annulus Diameter 4.0 cm LA Ao Ratio MM 1.1 MV E Point Septal Separation 0.4 cm DOPPLER AV Peak Velocity 152.0 cm/s LVOT Peak Velocity 127.0 cm/s AV Area Cont Eq vti 2.4 cm squared AV Area Cont Eq pk 2.8 cm squared MV Area PHT 4.0 cm squared Mitral E to A Ratio 2.0 MV E' Velocity 66.5 cm/s Mitral E to MV E' Ratio 15.1 Mitral E to LV E' Lateral Ratio 12.9 Mitral E to LV E' Septal Ratio 18.6 TR Peak Velocity 225.0 cm/s TR Peak Gradient 20.3 mmHg TV Peak E Velocity 55.0 cm/s Right Atrial Pressure 5.0 mmHg Pulmonary Artery Systolic Pressu 25.3 mmHg PV Peak Velocity 89.0 cm/s RV Acceleration Time 0.1 s RV Ejection Time 0.3 s RV AcT/ET 0.4 FINDINGS Left Ventricle Left ventricle is normal in size. LV systolic function is normal with EF of 55 to 60%. No regional wall motion abnormalities are seen. Right Ventricle Normal in size and function Right Atrium Normal in size Left Atrium Normal in size Mitral Valve Mild mitral annular calcification. No significant stenosis or regurgitation. Aortic Valve Aortic valve is thickened. No significant stenosis or regurgitation Tricuspid Valve Mild tricuspid regurgitation. Pulmonary artery systolic pressure is normal. Pulmonic Valve Not well-visualized. Trace pulmonic regurgitation. Pericardium Normal Aorta Normal in size IVC Appears to be normal CONCLUSIONS LV systolic function is normal with EF of 55 to 60%. Mild tricuspid regurgitation Trace pulmonic regurgitation Compared to prior echocardiogram from 02/2022, no significant changes are seen Basim Zeng MD (Electronically Signed) Final Date: 31 October 2022 09:25 S
[2022-10-31 03:08] LABS: Basophils % 0.5 %; Eosinophils # 0.1 10^3/uL (0.0-0.8); Eosinophils % 2.1 %; Hematocrit 36.2 % (42.0-52.0); Hemoglobin 11.8 g/dL (11.7-16.6); Lymphocytes # 1.5 10^3/uL (0.8-4.8); Lymphocytes % 34.4 %; Mean Corpuscular HGB Conc 32.6 g/dL (30.0-36.0); Mean Corpuscular Hemoglobin 31.6 pg (28.0-34.0); Mean Corpuscular Volume 97.1 fl (80-94); Monocytes # 0.5 10^3/uL (0.2-0.9); Monocytes % 12.4 %; Neutrophils # 2.15 10^3/uL (1.8-7.7); Neutrophils % 50.4 %; Nucleated Red Blood Cells % 0 %; Platelet Count 168 10^3/cmm (130-400); Red Blood Count 3.73 10^6/uL (4.1-5.3); Red Cell Distribution Width 14.3 % (12.1-15.1); White Blood Count 4.3 10^3/uL (4.0-10.0)
[2022-10-31 03:43] LABS: Alanine Aminotransferase 15 U/L (0-41); Albumin Level 3.8 g/dL (3.5-5.2); Alkaline Phosphatase 54 U/L (40-130); Anion Gap 12.7 (5-19); Aspartate Amino Transferase 18 U/L (0-40); Blood Urea Nitrogen 26 mg/dL (8-23); Calcium 9.4 mg/dL (8.5-10.5); Carbon Dioxide 30 mmol/L (22-29); Chloride 102 mmol/L (98-107); Globulin 2.2 g/dL (1.3-4.6); Glucose 94 mg/dL (65-115); Osmolality Calculated 297 mOsm/kg (285-295); Potassium 3.7 mmol/L (3.5-5.1); Sodium 141 mmol/L (136-145); Total Bilirubin 0.6 mg/dL (0.15-1.2)
[2022-10-31] MEDS: FUROsemide 40 mg Tablet PO (06:34)
[2022-10-31] MEDS: regadenoson 0.4 Mg/5 ml Syringe IVP (07:21)
--- NOTE | 2022-10-31 08:08 | P.CONIM_ITS ---
Providers/Reason For Consult Consulting Physician/Specialty*: Basim Zeng MD/ Cardiology Reason for Consult*: Chest pain Requesting Physician: Dr Norris Attending Physician: Hyun Norris MD Primary Care Provider: DEANNA Solis History of Present Illness History of Present Illness Gabino Piña is a 77 year old male with past medical history of coronary artery disease with PCI of LAD in 2010, hypertension, A. fib who presented to the hospital with 2 days of worsening chest pain. According to patient he started noticing substernal chest pain that was severe on Saturday. Has have been having constant pain since then. It is sharp. He is on Xarelto for anticoagulation. His troponin was 33 at baseline and has not trended up significantly. Echocardiogram performed shows normal LV systolic function. He had a coronary angiogram about 7 months back that showed patent coronary arteries. He has undergone stress test that does not show any evidence of ischemia. He has microvascular dysfunction with significant chest pain symptoms in the past as well. EKG is not showing significant ischemic changes. Review of Systems Narrative: CONSTITUTIONAL: No fever chills weight loss or gain or night sweats. [] HEENT: Normocephalic, atraumatic.[] RESPIRATORY: No cough, sputum, hemoptysis or wheezing.[] CARDIOVASCULAR: Chest pain GI: no nausea vomiting diarrhea. [] TYING MACHINE OPERATOR: No numbness, tingling, weakness or loss of function in any part of the body. [] MUSCULOSKELETAL: No knee or joint pain or rashes. [] Medications/Allergies Home Medications Medication Instructions Recorded Confirmed Last Taken Type pramipexole 0.25 mg tablet 0.25 mg PO TID 03/15/20 10/30/22 10/30/22 History tamsulosin 0.4 mg capsule 0.4 mg PO BEDTIME 03/15/20 10/30/22 10/29/22 History prednisolone acetate 1 % eye 1 drp ophthalmic (eye) BID 11/30/20 10/30/22 10/30/22 History drops,suspension metformin 500 mg tablet 500 mg PO BID@ ##0 12/08/20 10/30/22 10/30/22 Hist ory trazodone 50 mg tablet 100 mg PO BEDTIME 05/03/21 10/30/22 10/29/22 History nitroglycerin 0.4 mg sublingual 0.4 mg sublingual Q5M PRN chest 11/02/21 10/30/22 10/28/22 Rx tablet pain #25 tabs tramadol 50 mg tablet 100 mg PO BEDTIME 11/07/21 10/30/22 10/29/22 History Chewable Beets 2 - 3 tab PO BID 10/30/22 10/30/22 10/30/22 History acetaminophen 500 mg tablet 1,000 mg PO BEDTIME 10/30/22 10/30/22 10/29/22 History carvedilol 25 mg tablet 25 mg PO BEDTIME 10/30/22 10/30/22 10/29/22 History coenzyme Q10 100 mg capsule 100 mg PO DAILY 10/30/22 10/30/22 Unknown History (CoQ-10) furosemide 40 mg tablet 40 mg PO QAM Weight Gain 10/30/22 10/30/22 10/30/22 History isosorbide mononitrate 20 mg tablet 30 mg PO BID@08,15 10/30/22 10/30/22 10/30/22 15:00 History sxtmicok-lhfkxmdg-pcie 45 mg-folic 1 cap PO DAILY 10/30/22 10/30/22 Unknown History acid 800 mcg-vit K 120 mcg capsule (Bariatric Multivitamins) ranolazine 500 mg tablet,extended See Rx Instructions .Route .COMPLEX 10/30/22 10/30/22 10/30/22 15:00 History release,12 hr rivaroxaban 20 mg tablet (Xarelto) 20 mg PO DAILY@15 10/30/22 10/30/22 10/30/22 History rosuvastatin 40 mg tablet 40 mg PO BEDTIME 10/30/22 10/30/22 10/29/22 History vit C 250 mg-vit E 90 mg-zinc 40 1 tab PO BID 10/30/22 10/30/22 10/30/22 History mg-copper 1 te-nndijc-aheaso capsule (PreserVision AREDS-2) zinc acetate 50 mg (zinc) capsule 50 mg PO DAILY 10/30/22 10/30/22 Unknown History Allergies Allergy/AdvReac Type Severity Reaction Status Date / Time aspirin Allergy bleeding Verified 10/30/22 17:04 NSAIDS (Non-Steroidal Allergy bleeding Verified 10/30/22 17:04 Anti-Inflamma Current Medications Generic Name Dose Route Start Last Admin Trade Name Freq PRN Reason Stop Dose Admin Atorvastatin Calcium 40 mg 10/30/22 21:45 10/30/22 21:46 Atorvastatin 40 Mg Tablet PO 40 mg BEDTIME SAMIA Administration Furosemide 40 mg 10/31/22 06:00 10/31/22 06:34 Furosemide 40 Mg Tablet PO 40 mg QAM SAMIA Administration Pantoprazole Sodium 40 mg 10/30/22 21:30 10/30/22 21:46 Pantoprazole 40 Mg Sdv IVP 40 mg Q24H SAMIA Administration PFSH Acute PFSH: Medical History Anemia Coronary arteriosclerosis Dissection of artery of lower extremity Essential hypertension Gastroesophageal reflux Headache History of nonmelanoma skin cancer History of pacemaker Hyperlipidemia Mitral valve regurgitation Obstructive sleep apnea Osteoarthritis Paroxysmal atrial fibrillation Restless leg syndrome Tremor Uncontrolled hypertension Worsening angina Surgical History History of cardiac radiofrequency ablation History of right knee surgery S/P cardiac pacemaker procedure S/P total knee replacement Right knee Family History Other Cancer Chronic kidney disease (CKD) Heart disease Social History Smoking and tobacco status: former smoker History of recent travel: No Vitals/I&O/Wt Last Vital Signs Temp 97.4 F L 10/31/22 04:20 Pulse 72 10/31/22 07:49 Resp 22 H 10/31/22 04:20 BP 146/84 10/31/22 07:49 Pulse Ox 94 10/31/22 04:20 O2 Del Method 10/30/22 20:07 10/30/22 10/31/22 10/31/22 22:59 06:59 14:59 Intake Total 200 / 200 680 / 880 240 / 240 Balance 200 / 200 680 / 880 240 / 240 Weight last 48 hrs Weight 243 lb Physical Exam Narrative: GENERAL: Patient is alert, awake and oriented x3. [] NECK: No jugular vein distension. [] HEENT: No cyanosis. No icterus. No pallor. [] HEART: Regular S1 and S2. No murmur, rub or gallop. [] LUNGS: Clear to auscultate bilaterally. [] CENTRAL NERVOUS SYSTEM: Grossly nonfocal. [] EXTREMITIES: Lower extremities with 1+ edema bilaterally. Pulses palpable in the lower extremities, both dorsalis pedis and posterior tibial. [] Data 10/31/22 02:14 10/31/22 02:14 A&P Assessment and plan (1) Chest pain: (2) Paroxysmal atrial fibrillation: (3) History of pacemaker: (4) Essential hypertension: (5) CAD (coronary artery disease): Plan Patient has presented with typical chest pain symptoms. He has microvascular dysfunction and frequent anginal symptoms. He came to the hospital as these were prolonged episodes. His troponins have not trended up. Echo shows normal LV systolic function. Stress test is not showing any evidence of ischemia. He had a coronary angiogram performed about 7 months ago and showed patent coronary arteries. At this time we will medically manage him. Continue Xarelto We will uptitrate Ranexa to 1000 mg twice daily. His blood pressure is elevated. Patient asked to bring log of blood pressure readings on his office appointment. He was not taking Coreg. I have advised h im to start taking it. Thank you for involving us with care of this patient. He is stable to be dis charged home from cardiology standpoint. Please call with questions. Consult Attestations Medical Necessity Statement: Care expected to cross 2 midnights. Coding Level of Care Code Acute Arts Administrator for [facility] Diagnoses Chest pain R07.9 Paroxysmal atrial fibrillation I48.0 History of pacemaker Z95.0 Essential hypertension I10 CAD (coronary artery disease) I25.10
[2022-10-31] MEDS: ranolazine (12HR) 500 mg Tablet 1000 MG PO (08:52)
[2022-10-31] MEDS: pramipexole 0.25 mg Tablet PO (08:56)
[2022-10-31] MEDS: isosorbide mononitrate 20 mg Tablet 30 MG PO (08:58)
--- NOTE | 2022-10-31 10:49 | P.DS_ITS ---
Discharge Providers Date of Admission: 10/30/22 19:28 Date of Discharge: October 31, 2022 Attending Provider at Admission: Hyun Norris MD Attending Provider at Discharge: Dhaval Kim Primary Care Provider: DEANNA Solis Diagnoses at Discharge Discharge Diagnosis (1) Chest pain: Status: Acute (2) Paroxysmal atrial fibrillation: Status: Acute (3) History of pacemaker: Status: Acute (4) Essential hypertension: Status: Acute (5) CAD (coronary artery disease): Status: Acute Reason for Visit Reason for Visit: Chest discomfort/abnormal labs Hospital Course Hospital Course Pleasant 77-year-old gentleman with history of CAD, PCI of LAD, HTN, A. fib, HTN, HLD, was placed in observation of presenting with 2 days of worsening chest pain and pressure. Substernal, chest heaviness, worsening with exertion, started on Saturday after restorationism. He also became diaphoretic and short of breath. Was assessed at [facility], including troponins which were reportedly elevated, with recommendation for admission. He declined at the time preferring to come here. Recently also with fluctuation blood pressure, hypotension due to which carvedilol was decreased to 3.125 mg twice daily although he had stopped taking it. On presentation here blood pressure noted elevated. Afebrile, without leukocytosis, saturating well on room air. Chest x-ray with atherosclerosis, PPM. Here on assessment complete set of troponin EKG were obtained, without significant rise in troponin. EKG with paced rhythm. He was assessed with echocardiogram with finding of normal ejection fraction, mild TVR, trace PVR, additionally assessed by stress testing which showed no signs of acute ischemia. She had a coronary angiogram 7 months ago which showed patent coronary arteries. He was assessed by cardiology and his medications were adjusted due to microvascular dysfunction and frequent anginal symptoms, it was recommended he resume taking carvedilol, and Ranexa dose is also uptitrated to 1000 mg twice daily. He is to continue Xarelto. He is asked to return to cardiology office for reassessment. Physical Exam Narrative: He is doing better this morning, not in pain or discomfort, feels ready to return home. Const: COMMON NORMALS: patient oriented x3 and alert GENERAL APPEARANCE: cooperative ORIENTATION/CONSCIOUSNESS: Yes awake HENMT: COMMON NORMALS: oropharynx normal Neck/C-Spine: COMMON NORMALS: no JVD Resp: COMMON NORMALS: normal respiratory effort and clear to auscultation bilaterally AUSCULTATION: clear to auscultation bilaterally Cardio: COMMON NORMALS: no JVD, regular rhythm, S1 normal heart sound present, S2 normal heart sound present and No murmurs present (Cardio) RHYTHM: regular rhythm HEART SOUNDS: S1 normal heart sound present and S2 normal heart sound present GI: COMMON NORMALS: Normal to inspection, nondistended, normoactive bowel sounds present, Soft to palpation and non-tender PALPATION: Yes Soft to palpation Extremity: COMMON NORMALS: no joint enlargement GENERAL: Yes edema (Trace) Neuro: COMMON NORMALS: patient oriented x3 and moves all extremities SENSORIUM/ORIENTATION: Yes alert Skin: COMMON NORMALS: no rashes or lesions noted GENERAL SKIN EXAM: no rashes or lesions noted Discharge Data Studies Completed and Pending Completed Studies During Hospitalization Category Date Time Status Sestamibi Stress Test Request Routine Exams 10/30/22 21:29 Draft XR chest 1V portable [id number] Stat Exams 10/30/22 15:23 Completed NM larissa perf SPECT r/s* [id number] Routine Nuc Med 10/31/22 21:30 Completed US echo complete [CV. echo complete* [id number]] Routine Ultrasound 10/31/22 00:32 Completed Radiology Impressions Chest X-Ray 10/30/22 15:23 Impression: Atherosclerosis and permanent cardiac pacemaker. Laboratory Results WBC 4.3 10^3/uL (4.0-10.0) 10/31/22 02:14 RBC 3.73 10^6/uL (4.1-5.3) L 10/31/22 02:14 Hgb 11.8 g/dL (11.7-16.6) 10/31/22 02:14 Hct 36.2 % (42.0-52.0) L 10/31/22 02:14 MCV 97.1 fl (80-94) H 10/31/22 02:14 MCH 31.6 pg (28.0-34.0) 10/31/22 02:14 MCHC 32.6 g/dL (30.0-36.0) 10/31/22 02:14 RDW 14.3 % (12.1-15.1) 10/31/22 02:14 Plt Count 168 10^3/cmm (130-400) 10/31/22 02:14 MPV 9.0 fL (7.4-10.4) 10/31/22 02:14 Neut % (Auto) 50.4 % 10/31/22 02:14 Lymph % (Auto) 34.4 % 10/31/22 02:14 Knott % (Auto) 12.4 % 10/31/22 02:14 Eos % (Auto) 2.1 % 10/31/22 02:14 Baso % (Auto) 0.5 % 10/31/22 02:14 Neut # (Auto) 2.15 10^3/uL (1.8-7.7) 10/31/22 02:14 Lymph # (Auto) 1.5 10^3/uL (0.8-4.8) 10/31/22 02:14 Knott # (Auto) 0.5 10^3/uL (0.2-0.9) 10/31/22 02:14 Eos # (Auto) 0.1 10^3/uL (0.0-0.8) 10/31/22 02:14 Baso # (Auto) 0.0 10^3/uL (0.0-0.1) 10/31/22 02:14 Nucleated RBC % (auto) 0 % 10/31/22 02:14 Nucleated RBCs # 0.0 /100WBC 10/31/22 02:14 Sodium 141 mmol/L (136-145) 10/31/22 02:14 Potassium 3.7 mmol/L (3.5-5.1) 10/31/22 02:14 Chloride 102 mmol/L (98-107) 10/31/22 02:14 Carbon Dioxide 30 mmol/L (22-29) H 10/31/22 02:14 Anion Gap 12.7 (5-19) 10/31/22 02:14 BUN 26 mg/dL (8-23) H 10/31/22 02:14 Creatinine 1.0 mg/dL (0.7-1.2) 10/31/22 02:14 GFR Calculation Not Reportable 10/31/22 02:14 Glucose 94 mg/dL (65-115) 10/31/22 02:14 Calculated Osmolality 297 mOsm/kg (285-295) H 10/31/22 02:14 Calcium 9.4 mg/dL (8.5-10.5) 10/31/22 02:14 Magnesium 2.0 mg/dL (1.7-2.3) 10/31/22 02:14 Total Bilirubin 0.6 mg/dL (0.15-1.2) 10/31/22 02:14 AST 18 U/L (0-40) 10/31/22 02:14 ALT 15 U/L (0-41) 10/31/22 02:14 Alkaline Phosphatase 54 U/L (40-130) 10/31/22 02:14 Troponin T Baseline 33 ng/L (0-15) H 10/30/22 15:37 Troponin T 120 Minute 35.49 ng/L (0-15) H 10/30/22 18:25 Delta Troponin T 2.49 ABS# (0-10) 10/30/22 18:25 Troponin T Hi Sens 6Hr 36.49 ng/L (0-15) H 10/30/22 21:57 Troponin T Hi Sens 6Hr Delta 3.49 ng/L (0-12) 10/30/22 21:57 NT-Pro-B Natriuret Pep 283 pg/mL (0-450) 10/30/22 21:57 Total Protein 6.0 g/dL (6.6-8.7) L 10/31/22 02:14 Albumin 3.8 g/dL (3.5-5.2) 10/31/22 02:14 Globulin 2.2 g/dL (1.3-4.6) 10/31/22 02:14 TSH 2.86 uIU/mL (0.27-4.20) 10/30/22 21:57 Vitals Last Vital Signs Temp 98.1 F 10/31/22 08:35 Pulse 86 10/31/22 08:50 Resp 16 10/31/22 08:50 BP 179/106 10/31/22 08:35 Pulse Ox 95 10/31/22 08:50 O2 Del Method 10/31/22 08:50 Discharge Plan Discharge Patient Disposition: Home Condition: Stable Prescriptions: New carvedilol [Coreg] 3.125 mg tablet 3.125 mg PO BID Qty: 90 0RF Rx Instructions: must administer with a meal/food Continued tamsulosin 0.4 mg capsule 0.4 mg PO BEDTIME pramipexole 0.25 mg tablet 0.25 mg PO TID trazodone 50 mg tablet 100 mg PO BEDTIME prednisolone acetate 1 % drops,suspension 1 drp ophthalmic (eye) BID Rx Instructions: BOTH EYES nitroglycerin 0.4 mg tablet, sublingual 0.4 mg sublingual Q5M PRN (Reason: chest pain) Qty: 25 3RF Rx Instructions: do not exceed 3 doses per episode tramadol 50 mg Tablet 100 mg PO BEDTIME metformin 500 mg Tablet 500 mg PO BID@08,20 Qty: 0 Hold Instructions: Resume on 03/26/22. zinc acetate 50 mg (zinc) Capsule 50 mg PO DAILY Tylenol Ex Str Rapid Release 500 mg Tablet 1,000 mg PO BEDTIME CoQ-10 100 mg Capsule 100 mg PO DAILY PreserVision AREDS-2 250-90-40-1 mg Capsule 1 tab PO BID Bariatric Multivitamins 45 mg iron- 800 mcg-120 mcg Capsule 1 cap PO DAILY Chewable Beets 2 - 3 tab PO BID furosemide 40 mg tablet 40 mg PO QAM isosorbide mononitrate 20 mg tablet 30 mg PO BID@08,15 Rx Instructions: give doses 7 hrs apart rosuvastatin 40 mg tablet 40 mg PO BEDTIME Xarelto 20 mg tablet 20 mg PO DAILY@15 Changed ranolazine 500 mg tablet extended release 12 hr 1,000 mg PO BID Qty: 90 0RF Discontinued carvedilol 25 mg Tablet 25 mg PO BEDTIME Discharge Orders: Discharge Order (Routine); Ordered 10/31/22 Ordered By: Dhaval Kim Referrals: Basim Zeng M.D [Physician] - 2 months Amber Reynolds FNP [Nurse Practitioner] - 7-10 days [place] Davila PA [Primary Care Provider] - 4-7 days Discharge Diet: Cardiac Activity Restrictions/Additional Instructions: Please resume Coreg. If you run out of medications at home you were also provided with a prescription. Ranexa dose is increased to 1000 mg twice daily. You are provided additional prescription for this medication as well in case you run out. Continue to monitor blood pressures at home 3 times daily, write down values to bring to her appointment for further adjustment of medications. Discharge Attestations Time Spent in Discharge Care*: greater than 30 min Status at Discharge: Cognitive status at discharge: mildly impaired cognition (Unchanged from preoperative) , Behavioral status at discharge: cooperative , Quality Metrics Clinical Quality Measures [ No reported AMI, CVA or VTE this stay] Coding Level of Care Code Acute Chg FW DC note Diagnoses Chest pain R07.9 Paroxysmal atrial fibrillation I48.0 History of pacemaker Z95.0 Essential hypertension I10 CAD (coronary artery disease) I25.10
--- NOTE | 2022-10-31 21:30 | NMCV_ITS ---
NM larissa perf SPECT r/s* [id number] Gabino Piña Age: 77 Gender: M : 1945 Exam Date: 10/31/2022 06:40 Ordering Phys: Hyun Norris MD Technologist: NEY Slaughter Exam Location: [facility] Indications: CHEST PAIN STRESS TEST Please see separate stress test report in [facility] for full findings IMAGE PROTOCOL Rest/Stress 1 Lexiscan Day Radiopharmaceutical Dose (mCi) Administration Site Administered by Rest: Tc-99m 10.6 IV NEY Shankar Sestamibi Stress:Tc-99m 33.0 IV NEY Shankar Sestamibi Rest: 31-Oct-2022 60 Discovery 630 Stress: 31-Oct-2022 30 Discovery 630 0.4mg Lexiscan. Supine position only as patient was unable to lay prone. SPECT RESULTS Technical Quality: Excellent Raw Data Analysis: Normal Image Corrections: No attenuation or motion correction applied Summed Stress Score: 0 Summed Rest Score: 0 Summed Difference Score: 0 PERFUSION FINDINGS SPECT images demonstrate homogeneous tracer distribution throughout the myocardium. FUNCTIONAL RESULTS (calculated via Gated SPECT) Stress Image LV EF (%): 69 Stress EDV (mL):131 TID: 0.98 Stress ESV (mL):41 FUNCTIONAL FINDINGS: There is normal left ventricular systolic function. IMPRESSIONS 1. Normal myocardial perfusion imaging with no evidence of ischemia. 2. LV systolic function is normal Basim Zeng MD (Electronically Signed) Final Date: 31 October 2022 09:29 S
== END 2022-10-31 11:30 | disposition home or self-care (01) ==
LOC: ER 19:28 → CSU 19:48
PROVIDERS: Family Medicine; Admitting Provider Internal Medicine; Emergency Provider Emergency Medicine; PCP Physician Assistant; Visit Provider Internal Medicine
DX: R07.9 Chest pain, unspecified (principal); I48.0 Paroxysmal atrial fibrillation; Z95.0 Presence of cardiac pacemaker; I10 Essential (primary) hypertension; I25.10 Atherosclerotic heart disease of native coronary artery without angina pectoris; E78.5 Hyperlipidemia, unspecified; G47.33 Obstructive sleep apnea (adult) (pediatric); Z87.891 Personal history of nicotine dependence; I77.77 Dissection of artery of lower extremity; I34.0 Nonrheumatic mitral (valve) insufficiency; G25.0 Essential tremor
CPT/HCPCS: 36415; 71045; 78452; 80053; 83735; 83880; 84443; 84484; 85025; 93005; 93017; 93306; 96374; 99285; A9500; C9113; G0378; J2785

== ENCOUNTER → 2022-11-07 14:38 | Outpatient (BNVA) | payer MEDICARE, SELFPAY | PROVIDERS: PCP Physician Assistant; Visit Provider Nurse Practitioner Family | DX: I25.10 Atherosclerotic heart disease of native coronary artery without angina pectoris (principal); I10 Essential (primary) hypertension; I48.0 Paroxysmal atrial fibrillation; Z79.01 Long term (current) use of anticoagulants; Z87.891 Personal history of nicotine dependence | CPT/HCPCS: 99214 ==

== ENCOUNTER → 2022-11-23 10:13 | Outpatient (BNVA) | payer MEDICARE, SELFPAY | PROVIDERS: PCP Physician Assistant; Visit Provider Internal Medicine | DX: Z45.010 Encounter for checking and testing of cardiac pacemaker pulse generator [battery] (principal) | CPT/HCPCS: 93280 ==

== ENCOUNTER 2022-12-06 08:48 | Outpatient (CLI) | payer MEDICARE, SELFPAY ==
--- NOTE | 2022-12-06 08:53 | NM_ITS ---
WS: [id number] NUCLEAR MEDICINE BONE SCAN Radiopharmaceutical: 22.9 Tc-99m MDP mCi IV Injection site: antecubital Postinjection imaging delay: 1 hr CLINICAL INFORMATION: knee replacement COMPARISON: Radiograph October 15, 2022 FINDINGS: Prior postoperative changes bilateral TKAs with patellar resurfacing. Mild periarticular uptake about both TKAs with relatively symmetric uptake. Slightly increased uptake medial tibial plateau LEFT kne e. Findings are most compatible with chronic bony remodeling due to the prosthesis. Bone lesions: Mild degenerative type uptake involving both AC joints and sternoclavicular joints. Soft tissue contours: Normal. Kidneys: Normal. Other findings: None. NM/NM bone scan whole body* [id number] IMPRESSION: Prior postoperative changes bilateral TKAs with mild periarticular uptake LEFT greater than RIGHT most compatible with chronic bony remodeling. No suspicious findings.
== END 2022-12-06 08:49 | disposition home or self-care (01) ==
LOC: RAD 08:51
PROVIDERS: PCP Physician Assistant; Visit Provider Specialist
DX: M25.569 Pain in unspecified knee (principal); T84.84XA Pain due to internal orthopedic prosthetic devices, implants and grafts, initial encounter; Z96.651 Presence of right artificial knee joint; X58.XXXA Exposure to other specified factors, initial encounter
CPT/HCPCS: 78306; A9561

== ENCOUNTER → 2022-12-19 15:01 | Outpatient (BNVA) | payer MEDICARE, SELFPAY | PROVIDERS: PCP Physician Assistant; Visit Provider Specialist | DX: M17.12 Unilateral primary osteoarthritis, left knee (principal); Z96.651 Presence of right artificial knee joint; M25.561 Pain in right knee | CPT/HCPCS: 20610; 87070; 87075; 87205; 99214 ==

== ENCOUNTER 2023-01-14 14:56 | Outpatient (CLI) | payer MEDICARE, SELFPAY | END 2023-01-14 14:57 | disposition home or self-care (01) | LOC: SPT 14:57 | PROVIDERS: PCP Physician Assistant; Visit Provider Specialist | DX: Z47.1 Aftercare following joint replacement surgery (principal); Z96.652 Presence of left artificial knee joint | CPT/HCPCS: 97760; 99213; L1812 ==

== ENCOUNTER → 2023-02-28 13:30 | Outpatient (BNVA) | payer MEDICARE, SELFPAY | PROVIDERS: PCP Physician Assistant; Visit Provider Dermatology | DX: L57.0 Actinic keratosis (principal); L82.1 Other seborrheic keratosis; Z85.828 Personal history of other malignant neoplasm of skin; L85.3 Xerosis cutis; L98.8 Other specified disorders of the skin and subcutaneous tissue; D69.2 Other nonthrombocytopenic purpura; L57.8 Other skin changes due to chronic exposure to nonionizing radiation; Z87.891 Personal history of nicotine dependence | CPT/HCPCS: 17000; 17003; 99213 ==

== ENCOUNTER → 2023-03-04 09:39 | Outpatient (BNVA) | payer MEDICARE, SELFPAY | PROVIDERS: PCP Physician Assistant; Visit Provider Internal Medicine Cardiovascular Disease | DX: I25.10 Atherosclerotic heart disease of native coronary artery without angina pectoris (principal); I48.0 Paroxysmal atrial fibrillation; I34.0 Nonrheumatic mitral (valve) insufficiency; I10 Essential (primary) hypertension; I77.77 Dissection of artery of lower extremity; I71.9 Aortic aneurysm of unspecified site, without rupture; Z95.0 Presence of cardiac pacemaker; Z87.891 Personal history of nicotine dependence | CPT/HCPCS: 99215 ==

== ENCOUNTER 2023-03-08 06:41 | Outpatient (CLI) | payer MEDICARE, SELFPAY ==
[2023-03-04 13:40] LABS: Basophils % 0.6 %; Eosinophils # 0.1 10^3/uL (0.0-0.8); Eosinophils % 1.7 %; Hematocrit 38.2 % (42.0-52.0); Hemoglobin 12.3 g/dL (11.7-16.6); Lymphocytes # 1.2 10^3/uL (0.8-4.8); Lymphocytes % 22.9 %; Mean Corpuscular HGB Conc 32.2 g/dL (30.0-36.0); Mean Corpuscular Hemoglobin 31.5 pg (28.0-34.0); Mean Corpuscular Volume 97.7 fl (80-94); Mean Platelet Volume 8.9 fL (7.4-10.4); Monocytes # 0.5 10^3/uL (0.2-0.9); Monocytes % 9.6 %; Neutrophils # 3.46 10^3/uL (1.8-7.7); Nucleated Red Blood Cells % 0 %; Platelet Count 167 10^3/cmm (130-400); Red Blood Count 3.91 10^6/uL (4.1-5.3); Red Cell Distribution Width 14.1 % (12.1-15.1); White Blood Count 5.3 10^3/uL (4.0-10.0)
[2023-03-04 14:01] LABS: INR 1.13 (0.83-1.21); Prothrombin Time (Patient) 14.9 Seconds (12.0-15.1)
[2023-03-04 15:00] LABS: Anion Gap 15.8 (5-19); Blood Urea Nitrogen 23 mg/dL (8-23); Calcium 9.6 mg/dL (8.5-10.5); Carbon Dioxide 26 mmol/L (22-29); Chloride 101 mmol/L (98-107); Glucose 63 mg/dL (65-115); Osmolality Calculated 290 mOsm/kg (285-295); Potassium 3.8 mmol/L (3.5-5.1); Sodium 139 mmol/L (136-145)
[2023-03-08] VITALS (7 sets, daily range): BP systolic 142–160; BP diastolic 62–96; PULSE 60–66; RESP 18–20; TEMP 36.6–36.7; O2SAT 95–98; BMI 34.9
[2023-03-08 07:21] LABS: Glucose Point of Care 94 mg/dL (70-110)
--- NOTE | 2023-03-08 08:30 | XACV_ITS ---
Ht: 175 cm Wt: 108 kg BSA: 2.33 m2 Gender: Male : 1945 Any Known Allergies: Other Exam Priority: Routine Procedure(s): Procedure Description: Diagnostic procedure Procedure Description: Miscellaneous Procedure Description: Generator Replacement PP (EOL) Diagnostic Cath Status: Elective Conclusions 1. The pacemaker revision report is dictated in a separate operation note. Please see for details. Clinical Evaluation EBL: 5mL-10mL Procedural Details Procedure Consent Obtained. Pre-Procedure Time Out. Identified patient by full name and date of as verbalized by the patient/guarantor. Does the consent match the physician's order: Yes. Accurate & Complete Informed Consent: Yes. Inpatient/Outpatient History & Physical on Chart: Yes. If H&P is completed, is and addenduem needed: No; If yes, is the addendum complete: N/A. Visualize and Verify Site with Patient/Guarantor: N/A. Relevant Radiology Images available: Yes. Pre-op teaching completed and patient verbalized understanding. The risks, benefits, and alternatives of sedation and/or procedure were discussed by physician. The patient agrees to continue. Procedure started. Correct patient, site and procedure confirmed by cath team. PERRLA. 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 Lungs clear x 5 lobes. IV Site on Arrival: 18 gauge in the right forearm. Oxygen started at 2liters/min via nasal canula. left subclavian was prepped with chloroprep then draped in the usual sterile fashion. Physician arrived. Baseline sample Acquired. HR: 62 BPM. Supplies: Cath pack, micropunture, bovie pen, 2-0 silk, 0 surgilon, 3-0 vicryl, 4-0 vicryl. Pre sponge count: 55. Pre sharps count: 18. Physician scrubbed in. Time out performed with cath team. Pre instrument count: 15. Lidocaine 1% infiltrated to Left subclavian area. Incision and pacer pocket made in left subclavian region. Bovie used for bleeder. Lidocaine 1% infiltrated to Left subclavian area. 2.0 silk used. 2.0 silk used. Old generator removed. A lead retested. A lead attached to new device. V lead retested. V lead attached to new device. Generator attached and tested. Antibiotic flush used to clean pacer pocket. Generator secured with surgilon. Subcutaneous tissue closed with 3-0 vicryl. Generator Lot# [id number]. Cutaneous tissue closed with 4-0 vicryl. Manual pressure held at site. Post-op diagnosis: post pacer revision. Total IV fluids: 90 mL. Post Procedure: Pulses reassessed and unchanged. PERRLA. 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 No VTE prophylaxis required. Medication's Wasted: Other = fentanyl 25 mcg. left subclavian pocket dressed per physician order. All final counts correct. Yonny wrap and 4x4's in place. No bleeding or hematoma noted at left subclavian pocket. Post Procedure: Pulses reassessed and unchanged. Complications: none. Estimated blood loss: 5mL-10mL. Responsiveness - Normal response to verbal stimuli; alert and oriented, PERRLA. Airway - Unaffected, no intervention required; spontaneous ventilation. Circulation: W/N/L, pulses unchanged. Nausea/Vomiting: No. Procedure completed. Patient transferred by wheelchair to CPRU. Vital chart was stopped. Procedure Medications Start: 9:09 AM Stop: 9:09 AM Medication: Ancef Amount: 2 g Route: I.V. Start: 9:10 AM Stop: 9:10 AM Medication: Versed Amount: 1 mg Route: I.V. Start: 9:10 AM Stop: 9:10 AM Medication: Fentanyl Amount: 50 mcg Route: I.V. Start: 9:24 AM Stop: 9:24 AM Medication: Versed Amount: 1 mg Route: I.V. Start: 9:31 AM Stop: 9:31 AM Medication: Versed Amount: 1 mg Route: I.V. Start: 9:31 AM Stop: 9:31 AM Medication: Fentanyl Amount: 25 mcg Route: I.V. Start: 9:45 AM Stop: 9:45 AM Medication: Versed Amount: 1 mg Route: I.V. I, the attending physician, have reviewed and verified all procedure medications. Yes, all medications given per verbal order History/Risk Factors Hypertension: Yes Dyslipidemia: Yes Peripheral Arterial Disease (PAD): No Myocardial Infarction (SC): No Obesity: No Renal Disease: No Tobacco Use: Former Prior Interventions PCI: No CABG: No Valve Surgery: No Report Signatures Finalized by Dr Vivienne Camara MD [facility] on 03/09/2023 08:56 AM
--- NOTE | 2023-03-08 08:58 | W.PM.OPSUD ---
Surgery/Procedure H&P Update DATE OF PROCEDURE: March 08, 2023 DATE H&P PERFORMED: 03/04/23 H&P UPDATE INFORMATION: I have reviewed H&P completed within last 30 days, I have examined patient prior to procedure and No changes to prior documentation PREOP DIAGNOSIS: Pacemaker SUDHIR PRIMARY INDICATION FOR PROCEDURE: Patient with history of chronotropic incompetence/atrial fibrillation/ventricular tachycardia, status post ablation PLANNED PROCEDURE: Operation Date: 03/08/23 08:30 Proposed Procedures p System PPM-Dual [id number],Z45.010(Not Applicable) - Vivienne Camara MD Pacemaker revision, dual-chamber PATIENT REASSESSED PRIOR TO SEDATION, WITH NO CHANGE NOTED: Yes PHYSICAL EXAM: alert, oriented x 3, clear to auscultation bilaterally and regular rate & rhythm AIRWAY EVAL/ANESTHESIA PLAN: normal airway, see other exam findings, ASA III, Monitored Anesthesia, Local Anesthesia, Risks, benefits & alternatives of sedation and/or procedure discussed and Patient agrees to continue as planned
--- NOTE | 2023-03-08 10:20 | P.OP_ITS ---
Operative Report Date of procedure: March 08, 2023 Pre-op diagnosis: Preop Diagnosis Pacemaker SUDIHR Procedure: PROCEDURE: PACEMAKER REVISION PREOPERATIVE DIAGNOSIS: Pacemaker elective replacement indication. POSTOPERATIVE DIAGNOSIS: Pacemaker elective replacement indication. ESTIMATED BLOOD LOSS: Around 5 milliliters. COMPLICATIONS: None. BRIEF HISTORY: The patient is 77-year-old white male who had a permanent pacemaker implantation for symptomatic chronotropic incompetence/intermittent atrial fibrillation. The patient was found to have elective replacement indication, during routine office followup evaluation. For further management of patient's condition for the symptomatic bradycardia, the patient required a pacemaker revision. Patient required a dual-chamber pacemaker for symptom relief and the need for AV synchrony The procedure was explained to the patient and his in detail with the risks and benefits. The risks of bleeding, hematoma, vascular injury, infection and other concomitant complications were explained in detail, which the patient understood well and consented to proceed. PROCEDURES PERFORMED: 1. Explantation of the old pacemaker generator. 2. Implantation of the new generator. The patient brought to the Cardiac Director Of Sports Performance. The left side of the neck and the subclavian area were cleaned and draped in a sterile fashion. 1% Xylocaine was used for local anesthetic agent. A 2 inch long incision was made just below the previous pacemaker scar. By sharp and blunt dissection, the pacemaker pocket was accessed. The old generator was delivered from the pocket. The generator was detached from the lead. The new Medtronic generator was attached to the lead. Th e pacemaker pocket was copiously irrigated with vancomycin solution. Complete hemostasis was achieved. The lead was positioned behind the generator and the generator was attached to the pectoralis fascia by suturing with 0 Surgilon. Sponge counts were confirmed. The pacemaker pocket was closed in layers. Skin was approximated using 4-0 Vicryl. EXPLANTED DEVICE: Pacemaker Generator: Brand: BSX Model number:[id number] 173 Serial number: [id number]. Date of implant: 11/05/2013 IMPLANTED DEVICES: Ventricular Lead: Date of implantation: 11/05/2013 Model number: [id number] Serial number: [id number] Make: Guidant. Atrial lead Date of implantation: 11/05/2013 Model number: [id number] Serial number: [id number] Make: Guidant. Implanted Generator: Date of implantation : 03/08/2023 Brand: Karime Luna. Model number: W1 DR 01 Serial number: [id number] Make: Medtronic Stimulation Threshold: The ventricular sensing was 7.3 millivolts. Ventricular lead impedance was 513 ohms and the pacing threshold was 1.125 volts at 0.4 milliseconds. The atrial sensing was 4.3 millivolts. Atrial lead impedance was 437 ohms and the pacing threshold was 0.75 volts at 0.4 milliseconds. The pacemaker was set for AAIR/DDDR mode with an upper rate of 130 and a lower rate of 60. Both the atrial and ventricular output was kept at 2.5 V at and pulse width of 0.4 ms. Atrial sensing was kept at 0.3 and ventricular sensing 0.9 A pressure dressing was applied over the pacemaker site. The patient was transferred back to medical floor in stable condition. Sponge counts were correct.
--- NOTE | 2023-03-08 10:37 | PC.NURSE ---
Patient received from stores laborer, post pacemaker gen change. Pressure dressing to left chest in place. Clean, dry, asymptomatic. Pt is alert and oriented. Denies pain. Placed on bedside monitor and storage bin tender. Pacemaker rep at bedside going over mobile luis felipe. Report was called to floor by Keanu Fagan RN. Pt to go to room 269.
--- NOTE | 2023-03-08 11:18 | PC.NURSE ---
Pt transferred to room 269 via wheelchair. Family at bedside.
[2023-03-08] MEDS: isosorbide mononitrate 20 mg Tablet 30 MG PO (14:36)
[2023-03-08] MEDS: pramipexole 0.25 mg Tablet PO (14:36)
[2023-03-08] MEDS: rivaroxaban 10 mg Tablet 20 MG PO (14:36)
[2023-03-08] MEDS: ceFAZolin 2,000 MG in sodium chloride 0.9% (plus) 50 ML 100 MG IV (14:37)
== END 2023-03-08 16:23 | disposition home or self-care (01) ==
LOC: CCL 06:42 → MEDSURG 11:20
PROVIDERS: PCP Physician Assistant; Visit Provider Internal Medicine Cardiovascular Disease
DX: I34.0 Nonrheumatic mitral (valve) insufficiency (principal); Z45.010 Encounter for checking and testing of cardiac pacemaker pulse generator [battery]; I48.91 Unspecified atrial fibrillation; I10 Essential (primary) hypertension; E78.5 Hyperlipidemia, unspecified; Z87.891 Personal history of nicotine dependence
CPT/HCPCS: 33213; 36415; 36416; 80048; 82962; 85025; 85610; 86850; 86900; 96360; 96361; 96365; 96367; 97165; 99152; 99153; A4216; C1769; C1786; J0690; J2250; J3010; J3370; J7030; J7050

== ENCOUNTER → 2023-03-14 08:35 | Outpatient (BNVA) | payer MEDICARE, SELFPAY | PROVIDERS: PCP Physician Assistant; Visit Provider Nurse Practitioner Family | DX: I48.91 Unspecified atrial fibrillation (principal); Z95.0 Presence of cardiac pacemaker; Z79.01 Long term (current) use of anticoagulants; Z87.891 Personal history of nicotine dependence | CPT/HCPCS: 99213 ==

== ENCOUNTER → 2023-03-20 14:40 | Outpatient (BNVA) | payer MEDICARE, SELFPAY | PROVIDERS: PCP Physician Assistant; Visit Provider Nurse Practitioner Family | DX: M19.011 Primary osteoarthritis, right shoulder (principal); M67.911 Unspecified disorder of synovium and tendon, right shoulder | CPT/HCPCS: 99214 ==

== ENCOUNTER → 2023-03-29 08:53 | Outpatient (BNVA) | payer MEDICARE, SELFPAY | PROVIDERS: PCP Physician Assistant; Visit Provider Internal Medicine | DX: I34.0 Nonrheumatic mitral (valve) insufficiency (principal); I10 Essential (primary) hypertension; I25.10 Atherosclerotic heart disease of native coronary artery without angina pectoris; Z87.891 Personal history of nicotine dependence; Z95.0 Presence of cardiac pacemaker | CPT/HCPCS: 99214 ==

== ENCOUNTER 2023-04-08 07:59 | Outpatient (CLI) | payer MEDICARE, SELFPAY ==
--- NOTE | 2023-04-08 07:00 | CT_ITS ---
WS: [id number] NONCONTRAST CT RIGHT SHOULDER TECHNIQUE: Noncontrast CT RIGHT shoulder with coronal and sagittal reformatted images. CLINICAL INFORMATION: pain COMPARISON: None. DLP: 389.[address] scans at [facility] use at least one of these dose optimization techniques: automated e xposure control; mA and/or kV adjustment per patient size (includes targeted exams where dose is matc hed to clinical indication); or iterative reconstruction. FINDINGS: Evidence of prior resection of the distal RIGHT clavicle. Moderate narrowing of the subacromial space with chronic thinning of the supraspinatus which appears grossly intact distally. Normal infraspinat us. Normal teres minor. Mild chronic atrophy of the supraspinatus and infraspinatus muscle bellies. Moderate joint effusion more prominent in the subcoracoid and axillary recess. Distal subscapularis t endon appears thin but appears intact although somewhat difficult to visualize. No significant atroph y of the subscapularis muscle belly. Biceps tendon in the bicipital groove is not well visualized pro ximally. Fluid and edema along the rotator interval. Moderate to advanced arthritis glenohumeral db culation. Subchondral cystic change involving the greater tuberosity. No acute fractures. Mild spurri ng along the medial humeral neck. Partially visualized RIGHT lung well aerated. CT/CT shoulder RT wo con* [id number] IMPRESSION: 1. Evidence of prior resection of the distal clavicle. Moderate narrowing of t he subacromial space. 2. Chronic thinning of the supraspinatus tendon distally which appears grossly intact. Infraspinatus and teres minor appear intact. No tendon retraction. 3. Distal subscapularis tendon difficult to visualize but appears intact. No s ignificant atrophy subscapularis muscle belly. 4. Biceps tendon in the bicipital groove not well visualized. 5. Moderate joint effusion more prominent anteriorly involving the subcoracoid and axillary recess. Edema within the rotator interval. 6. 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
== END 2023-04-08 08:00 | disposition home or self-care (01) ==
LOC: RAD 08:01
PROVIDERS: PCP Physician Assistant; Visit Provider Nurse Practitioner Family
DX: M19.011 Primary osteoarthritis, right shoulder (principal); M67.911 Unspecified disorder of synovium and tendon, right shoulder
CPT/HCPCS: 20610; 73200; 99214; J1100; J2795; J3301

== ENCOUNTER → 2023-04-17 08:51 | Outpatient (BNVA) | payer MEDICARE, SELFPAY | PROVIDERS: PCP Physician Assistant; Visit Provider Specialist | DX: Z96.653 Presence of artificial knee joint, bilateral (principal) | CPT/HCPCS: 73560; 73565; 99214 ==

== ENCOUNTER → 2023-05-28 12:54 | Outpatient (BNVA) | payer MEDICARE, SELFPAY | PROVIDERS: PCP Physician Assistant; Visit Provider Nurse Practitioner Family | DX: M16.12 Unilateral primary osteoarthritis, left hip | CPT/HCPCS: 73502; 99213 ==

== ENCOUNTER → 2023-06-26 14:43 | Outpatient (BNVA) | payer MEDICARE, SELFPAY | PROVIDERS: PCP Physician Assistant; Visit Provider Nurse Practitioner Family | DX: I25.10 Atherosclerotic heart disease of native coronary artery without angina pectoris (principal); Z87.891 Personal history of nicotine dependence; I10 Essential (primary) hypertension | CPT/HCPCS: 99213 ==

== ENCOUNTER → 2023-07-08 09:31 | Outpatient (BNVA) | payer MEDICARE, SELFPAY | PROVIDERS: PCP Physician Assistant; Visit Provider Anesthesiology Pain Medicine | DX: M16.12 Unilateral primary osteoarthritis, left hip | CPT/HCPCS: 99203 ==

== ENCOUNTER → 2023-07-29 12:55 | Outpatient (BNVA) | payer MEDICARE, SELFPAY | PROVIDERS: PCP Physician Assistant; Visit Provider Anesthesiology Pain Medicine | DX: M16.12 Unilateral primary osteoarthritis, left hip (principal) | CPT/HCPCS: 20610; 77002; J1030; J3490 ==

== ENCOUNTER → 2023-08-05 09:38 | Outpatient (BNVA) | payer MEDICARE, SELFPAY | PROVIDERS: PCP Physician Assistant; Visit Provider Specialist | DX: M19.011 Primary osteoarthritis, right shoulder; M25.511 Pain in right shoulder | CPT/HCPCS: 20610; 73030; 99213; J1100; J2795; J3301 ==

== ENCOUNTER → 2023-08-28 13:51 | Outpatient (BNVA) | payer MEDICARE, SELFPAY | PROVIDERS: PCP Physician Assistant; Visit Provider Nurse Practitioner Family | DX: L57.0 Actinic keratosis (principal); L82.1 Other seborrheic keratosis; Z85.828 Personal history of other malignant neoplasm of skin; L85.3 Xerosis cutis; L98.8 Other specified disorders of the skin and subcutaneous tissue; D69.2 Other nonthrombocytopenic purpura; L57.8 Other skin changes due to chronic exposure to nonionizing radiation | CPT/HCPCS: 17000; 99213 ==

== ENCOUNTER → 2023-08-29 08:20 | Outpatient (BNVA) | payer MEDICARE, SELFPAY | PROVIDERS: PCP Physician Assistant; Visit Provider Anesthesiology Pain Medicine | DX: M16.12 Unilateral primary osteoarthritis, left hip | CPT/HCPCS: 99214 ==

== ENCOUNTER → 2023-10-09 12:34 | Outpatient (BNVA) | payer MEDICARE, SELFPAY | PROVIDERS: PCP Physician Assistant; Visit Provider Nurse Practitioner Family | DX: I10 Essential (primary) hypertension (principal); Z87.891 Personal history of nicotine dependence | CPT/HCPCS: 99213 ==